=== PATIENT | female | born 1950 | race Hispanic/Latino ===

== ENCOUNTER 2018-11-22 14:16 | Inpatient (IN) | payer MEDICARE ==
[2018-11-22 14:16] VITALS: BMI 48.9
--- NOTE | 2018-11-22 15:36 | ED PDOC ---
Arrival/HPI - General Chief Complaint: Trauma Historian: Patient - History of Present Illness Narrative History of Present Illness (Text): 11/22/18 15:35 68 year old female, whose past medical history includes b/l DVT, IDDM, hypertension, arthritis of knees, DJD, and depression, complaining of bilateral knee pain, neck pain, and headache s/p slip and fall. Patient reports she has been having trouble walking for the past 2 days. Patient uses a walker to get round. She states that she was trying to get back to bed and slipped. Patient is not on any blood thinners. Patient denies any fever, chills, chest pain, shortness of breath, nausea, vomiting, diarrhea, back pain, or any other complaints. PMD: Dr. Bedolla Time/Duration: Prior to Arrival Symptom Onset: Sudden Symptom Course: Unchanged Activities at Onset: Light Context: Slipped Past Medical History - Provider Review Nursing Documentation Reviewed: Yes - Infectious Disease Hx of Infectious Diseases: None - Cardiac Hx Cardiac Disorders: Yes Hx Hypertension: Yes - Pulmonary Hx Respiratory Disorders: Yes Hx Pneumonia: Yes - Neurological Hx Neurological Disorder: Yes Hx Transient Ischemic Attacks (TIA): Yes - HEENT Hx HEENT Disorder: No - Renal Hx Renal Disorder: No - Endocrine/Metabolic Hx Endocrine Disorders: Yes Hx Diabetes Mellitus Type 2: Yes - Hematological/Oncological Hx Blood Disorders: No - Integumentary Hx Dermatological Disorder: No - Musculoskeletal/Rheumatological Hx Musculoskeletal Disorders: Yes Hx Falls: Yes - Gastrointestinal Hx Gastrointestinal Disorders: Yes Hx Colitis: Yes - Genitourinary/Gynecological Hx Genitourinary Disorders: No - Psychiatric Hx Psychophysiologic Disorder: No Hx Substance Use: No - Surgical History Hx Appendectomy: Yes Other/Comment: colectomy - Anesthesia Hx Anesthesia: No Hx Anesthesia Reactions: No Hx Malignant Hyperthermia: No Family/Social History - Physician Review Nursing Documentation Reviewed: Yes Family/Social History: No Known Family HX Smoking Status: Never Smoked Hx Alcohol Use: No Hx Substance Use: No Allergies/Home Meds Allergies/Adverse Reactions: Allergies codeine Allergy (Verified 11/22/18 14:47) RASH FISH Allergy (Verified 11/22/18 14:47) SWELLING Home Medications: Home Meds Medication Instructions Recorded Confirmed RX: No Known Home Med 11/22/18 11/22/18 Review of Systems - Physician Review All systems were reviewed & negative as marked: Yes - Review of Systems Constitutional: absent: Fevers, Other (chills) Respiratory: absent: SOB Cardiovascular: absent: Chest Pain Gastrointestinal: absent: Diarrhea, Nausea, Vomiting Musculoskeletal: Neck Pain, Other (b/l knee pain ). absent: Back Pain Neurological: Headache, Dizziness Physical Exam Vital Signs Reviewed: Yes Vital Signs Temp Pulse Resp BP Pulse Ox 11/22/18 14:47 99.3 F 99 H 17 138/66 95 Temperature: Afebrile Blood Pressure: Normal Pulse: Tachycardic Respiratory Rate: Normal Appearance: Positive for: Well-Appearing, Non-Toxic, Comfortable, Other (obese woman) Pain Distress: None Mental Status: Positive for: Alert and Oriented X 3 - Systems Exam Head: Present: Atraumatic, Normocephalic, Other (no obvious trauma to the face) Mouth: Present: Moist Mucous Membranes Neck: Present: Normal Range of Motion Respiratory/Chest: Present: Decreased Breath Sounds (due to body habits). No: Wheezes, Rales, Rhonchi Cardiovascular: Present: Tachycardic. No: Murmurs, Rub, Gallop Abdomen: Present: Other (soft). No: Tenderness, Distention Upper Extremity: Present: Normal Inspection. No: Cyanosis, Edema Lower Extremity: Present: Normal Inspection. No: Edema Neurological: Present: GCS=15, Speech Normal Psychiatric: Present: Alert, Oriented x 3, Normal Insight, Normal Concentration Medical Decision Making ED Course and Treatment: 11/22/18 15:35 Impression: 68 year old female presents complaining of bilateral knee pain, neck pain, and headache s/p slip and fall. Differential Diagnosis included but are not limited to: Plan: -- CT Cervical spine w/o contrast -- Head CT w/o contrast -- Labs -- urine Culture -- Knee Bilateral x-ray -- UA --Rocephin --IVF -- Reassess and disposition Prior Visits: Notes and results from pervious visits were reviewed. Progress Notes: 11/22/18 20:00 Labs reviewed with no outstanding findings. Signout given to Dr. Durham with patient pending urinanalysis and disposition. - Lab Interpretations I have reviewed the lab results: Yes - RAD Interpretation Size Tester: Radiologist - Scribe Statement The provider has reviewed the documentation as recorded by the Yanique Khan Provider Scribe Attestation: All medical record entries made by the Jose Angelibdamian were at my direction and personally dictated by me. I have reviewed the chart and agree that the record accurately reflects my personal performance of the history, physical exam, medical decision making, and the department course for this patient. I have also personally directed, reviewed, and agree with the discharge instructions and disposition. Disposition/Present on Arrival - Present on Arrival Any Indicators Present on Arrival: Yes History of DVT/PE: No History of Uncontrolled Diabetes: Yes Urinary Catheter: No History of Decub. Ulcer: No History Surgical Site Infection Following: None - Disposition Have Diagnosis and Disposition been Completed?: Yes Diagnosis: UTI (urinary tract infection), Fall Disposition: HOSPITALIZED Disposition Time: 19:00 Patient Problems: Current Active Problems Problem Status Onset Fall Acute UTI (urinary tract infection) Acute Condition: FAIR
[2018-11-22 16:36] LABS: BASO # 0.01 K/mm3 (0.0-2.0); BASO % 0.2 % (0.0-3.0); EOS % 0.3 % (1.5-5.0); HEMOGLOBIN 15.4 g/dL (12.0-16.0); LYMPH # 0.7 (1.2-3.4); LYMPH % 11.9 % (22.0-35.0); MEAN CORPUSCULAR HEMOGLOBIN 28.8 pg (25.0-35.0); MEAN CORPUSCULAR HGB CONC 33.9 g/dl (31.0-37.0); MEAN PLATELET VOLUME 10.4 fl (7.0-11.0); MONO # 0.7 (0.1-0.6); MONO % 10.9 % (1.0-6.0); RBC 5.34 10^6/uL (3.5-6.1); RED CELL DISTRIBUTION WIDTH 13.1 % (11.5-14.5)
[2018-11-22 16:45] LABS: ALB/GLOB RATIO 1.2 (1.1-1.8); ALBUMIN 4.1 g/dL (3.0-4.8); ALT/SGPT 27 U/L (7-56); AST/SGOT 26 U/L (14-36); BLOOD UREA NITROGEN 13 mg/dL (7-21); GFR NON-AFRICAN AMERICAN > 60
[2018-11-22 16:46] LABS: INR 1.12; PARTIAL THROMBOPLASTIN TIME 34.4 Seconds (26.9-38.3); PROTHROMBIN TIME 12.4 SECONDS (9.4-12.5)
[2018-11-22] MEDS ORDERED: cefTRIAXone 1 gm 1 GM/100 ML BAG IVPB STA (19:54)
[2018-11-22] MEDS ORDERED: Sodium Chloride 0.9% 1,000 ML IV STA ×2 (19:54→22:07)
--- NOTE | 2018-11-22 20:18 | ED PDOC ---
Physical Exam Vital Signs Temp Pulse Resp BP Pulse Ox 11/22/18 18:22 103 H 17 163/79 H 95 11/22/18 14:47 99.3 F 99 H 17 138/66 95 11/22/18 14:44 103 H 17 138/66 96 Medical Decision Making ED Course and Treatment: 11/22/18 20:00 Case endorsed to me by Dr. Buckner pending CT cervical spine, Urinalysis, reassess, and disposition. EXAM: CT Cervical Spine Without IV contrast. Electronically signed on Nov 22, 2018 8:40:11 PM EST by: Aleksandar Carr M.D. IMPRESSION: 1. No acute cervical spine abnormality. 2. Advanced degenerative arthritis is noted within the atlanto-dens interval. 11/22/18 21:30 Chest X-ray reviewed, shows no acute processes. 11/22/18 22:[address] Allan, who is aware and agrees with plan. Accepts pt in to her service. Pt admitted to [facility] for weakness and UTI. - Lab Interpretations Lab Results: PT 12.4 SECONDS (9.4-12.5) 11/22/18 16:33 INR 1.12 11/22/18 16:33 APTT 34.4 Seconds (26.9-38.3) 11/22/18 16:33 Total Bilirubin 0.8 mg/dL (0.2-1.3) 11/22/18 16:33 AST 26 U/L (14-36) 11/22/18 16:33 ALT 27 U/L (7-56) 11/22/18 16:33 Alkaline Phosphatase 109 U/L (38-126) 11/22/18 16:33 Total Protein 7.5 g/dL (5.8-8.3) 11/22/18 16:33 Albumin 4.1 g/dL (3.0-4.8) 11/22/18 16:33 Globulin 3.3 gm/dL 11/22/18 16:33 Albumin/Globulin Ratio 1.2 (1.1-1.8) 11/22/18 16:33 I have reviewed the lab results: Yes - RAD Interpretation Radiology Orders: 11/22/18 15:36 CERVICAL SPINE W/O CONTRAST [CT] Stat HEAD W/O CONTRAST [CT] Stat KNEES BILATERAL [RAD] Stat Threading Machine Tender: Radiologist - Medication Orders Current Medication Orders: Ceftriaxone Sodium (Rocephin 1 Gram Ivpb) 1 gm in 100 mls @ 100 mls/hr IVPB STAT STA; Protocol Stop: 11/22/18 20:53 Sodium Chloride (Sodium Chloride 0.9%) 1,000 mls @ 999 mls/hr IV .Q1H1M STA Stop: 11/22/18 20:54 - Scribe Statement The provider has reviewed the documentation as recorded by the Yanique Khan Provider Scribe Attestation: All medical record entries made by the Scribe were at my direction and personally dictated by me. I have reviewed the chart and agree that the record accurately reflects my personal performance of the history, physical exam, medical decision making, and the department course for this patient. I have also personally directed, reviewed, and agree with the discharge instructions and disposition. Disposition/Present on Arrival - Present on Arrival Any Indicators Present on Arrival: Yes History of DVT/PE: No History of Uncontrolled Diabetes: Yes Urinary Catheter: No History of Decub. Ulcer: No History Surgical Site Infection Following: None - Disposition Have Diagnosis and Disposition been Completed?: Yes Diagnosis: UTI (urinary tract infection), Fall Disposition: HOSPITALIZED Disposition Time: 22:05 Patient Problems: Current Active Problems Problem Status Onset Fall Acute UTI (urinary tract infection) Acute Condition: FAIR
[2018-11-22 20:22] LABS: PH,URINE 6.5 (4.7-8.0); URINE BILIRUBIN SMALL (NEGATIVE); URINE BLOOD NEGATIVE (NEGATIVE); URINE GLUCOSE (UA) 100 mg/dL (NEGATIVE); URINE LEUKOCYTE ESTERASE TRACE Leu/uL (NEGATIVE); URINE PROTEIN 100 mg/dL (<30 mg/dL)
[2018-11-22 20:23] LABS: URINE APPEARANCE SLIGHT-CLOUDY (CLEAR); URINE COLOR YELLOW (YELLOW)
[2018-11-22 20:36] LABS: URINE BACTERIA LARGE /hpf; URINE EPITHELIAL CELLS MANY /hpf (0-5)
--- NOTE | 2018-11-23 04:27 | HP ---
DATE OF EXAM: 11/22/2018 Patient was seen and examined at the bedside 11/22/2018. CHIEF COMPLAINT: Fall, headache, back pain. HISTORY OF PRESENT ILLNESS: Ms. Terry is a 68-year-old female with past medical history of bilateral DVTs, insulin-dependent diabetes mellitus, hypertension, obstructive sleep apnea syndrome, arthritis of knee, degenerative joint disease, COPD, and depression, came complaining of bilateral knee pain and neck pain, headache after slip and fall. Patient reports she had been having trouble walking for the past two days. Patient uses walker to get around. She states that she was trying to get back to bed and slipped. Patient is not on any blood thinner. Patient is very noncompliant. Actually, she was admitted couple of years ago in [facility] for abnormalities, then transferred to [facility] for deconditioning. She stayed there couple of months and then discharged home, after that patient disappeared, and as per patient she never went to see any other doctor since then. PAST MEDICAL HISTORY: As above. Hypertension, COPD, obstructive sleep apnea syndrome, morbid obesity, history of pneumonia, TIA, diabetes mellitus, history of fall, colitis, and appendectomy. FAMILY HISTORY: Father and mother, noncontributory. HABITS: Never smoked. No drug. No ethanol. ALLERGIES: PATIENT IS ALLERGIC TO CODEINE AND FISH. HOME MEDICATIONS: Unknown. I think patient is not taking any medications at home. She is very noncompliant. REVIEW OF SYSTEMS: Patient seen and examined at the bedside in the ER complaining about headache, back pain, and knee pain. No fever. No chills. No shortness of breath. No chest pain. No diarrhea, nausea, or vomiting. No neck pain. PHYSICAL EXAMINATION: VITAL SIGNS: Temperature 99.3, pulse 99, respiratory rate 17, blood pressure 138/56, pulse oximetry 95. HEENT: Head normocephalic and atraumatic. Eyes, PERRLA. Extraocular muscles intact. Conjunctivae clear. Nose patent. Mucous membrane moist. NECK: Supple. No carotid bruit or thyromegaly. CHEST: Bilaterally symmetrical. HEART: S1 and S2 positive. LUNGS: Clear to auscultation. ABDOMEN: Soft. Bowel sounds present. No organomegaly. EXTREMITIES: No edema. No cyanosis. NEUROLOGIC: Patient awake, alert, moving all four extremities. No focal deficit. LABORATORY DATA: White blood cell is 6, hemoglobin 15.4, hematocrit 45.4, platelets 205, sodium 137, potassium 3.1, chloride 95, BUN 30, creatinine 0.7, glucose 257. ASSESSMENT AND PLAN: Ms. Mara Samayoa is 68 years old lady with hypokalemia, hypochloremia, diabetes mellitus, proteinuria, glucosuria, ketonuria, urinary tract infection, comorbid obesity. Cervical spine CT, head CT, knee x-rays, and chest x-ray done; all results are pending. Patient has history of bilateral deep venous thromboses, insulin-dependent diabetes mellitus, hypertension, arthritis, degenerative joint disease, depression, now came in with bilateral knee pain with headache, fall after slip. Patient has history of rhabdomyolysis. According to radiologist, there is no acute cervical spine abnormality, advanced degenerative arthritis is noted within the atlanto-dens cervical region. Case discussed with Dr. Lei, emergency room physician. Discussion done with Dr. Antelmo Durham also. Admitted the patient. Antibiotics started, repeat labs. We will follow up. Lelo Allan MD
[2018-11-23] MEDS ORDERED: Potassium Chloride 20 mEq ER Tab PO ONE (04:55)
[2018-11-23 07:21] LABS: IRON 26 ug/dL (45-180)
[2018-11-23 07:30] LABS: % IRON SATURATION 9 % (20-55); TOTAL IRON BINDING CAPACITY 289 ug/dL (265-497)
--- NOTE | 2018-11-23 08:23 | CT ---
Date of service: 11/22/2018 PROCEDURE: CT HEAD WITHOUT CONTRAST. HISTORY: fall COMPARISON: None available. TECHNIQUE: Axial computed tomography images were obtained through the head/brain without intravenous contrast. Radiation dose: Total exam DLP = 1152.16 mGy-cm. This CT exam was performed using one or more of the following dose reduction techniques: Automated exposure control, adjustment of the mA and/or kV according to patient size, and/or use of iterative reconstruction technique. FINDINGS: HEMORRHAGE: No intracranial hemorrhage. BRAIN: No mass effect or edema. No atrophy or chronic microvascular ischemic changes. VENTRICLES: Unremarkable. No hydrocephalus. CALVARIUM: Unremarkable. PARANASAL SINUSES: Unremarkable as visualized. No significant inflammatory changes. MASTOID AIR CELLS: Unremarkable as visualized. No inflammatory changes. OTHER FINDINGS: None. IMPRESSION: Normal CT of the Head.
--- NOTE | 2018-11-23 09:26 | CT ---
Date of service: 11/22/2018 PROCEDURE: CT Cervical Spine without contrast HISTORY: fall COMPARISON: None available. TECHNIQUE: Axial computed tomography images were obtained of the cervical spine without the use of intravenous contrast. Coronal and sagittal reformatted images were created and reviewed. Radiation dose: Total exam DLP = 652.95 mGy-cm. This CT exam was performed using one or more of the following dose reduction techniques: Automated exposure control, adjustment of the mA and/or kV according to patient size, and/or use of iterative reconstruction technique. FINDINGS: VERTEBRAE: No fracture. Normal alignment. No destructive bony lesion. DISCS/SPINAL CANAL/NEURAL FORAMINA: Mild degenerative changes. PARASPINAL SOFT TISSUES: Unremarkable. OTHER FINDINGS: None. IMPRESSION: No acute fracture.
--- NOTE | 2018-11-23 10:00 | CP.PCM.APN ---
Subjective - Date & Time of Evaluation Date of Evaluation: 11/23/18 Time of Evaluation: 09:00 - Subjective Subjective: Pt seen and examined at bedside. C/O mild cough but nonproductive w/ mild shortness of breath. Objective - Vital Signs/Intake and Output Vital Signs (last 24 hours): Temp Pulse Resp BP Pulse Ox 98 F 92 H 18 141/96 H 95 11/23/18 06:00 11/23/18 06:00 11/23/18 06:00 11/23/18 06:00 11/23/18 06:00 Intake and Output: 11/23/18 11/23/18 06:59 18:59 Output Total 100 Balance -100 - Medications Medications: Current Medications Acetaminophen (Tylenol 325mg Tab) 650 mg PO Q4H PRN PRN Reason: Pain, Mild (1-3) Last Admin: 11/22/18 23:55 Dose: 650 mg Aspirin (Ecotrin) 81 mg PO DAILY ANAID Famotidine (Pepcid) 40 mg PO HS ANAID Ceftriaxone Sodium (Rocephin 1 Gram Ivpb) 1 gm in 100 mls @ 100 mls/hr IVPB DAILY ANAID; Protocol - Labs Labs: 11/22/18 16:33 11/22/18 16:33 PT 12.4 SECONDS (9.4-12.5) 11/22/18 16:33 INR 1.12 11/22/18 16:33 APTT 34.4 Seconds (26.9-38.3) 11/22/18 16:33 - Constitutional Appears: No Acute Distress - Head Exam Head Exam: NORMOCEPHALIC - Eye Exam Eye Exam: Normal appearance - Respiratory Exam Respiratory Exam: Wheezes - Cardiovascular Exam Cardiovascular Exam: REGULAR RHYTHM, +S1, +S2 - GI/Abdominal Exam GI & Abdominal Exam: Soft, Normal Bowel Sounds - Rectal Exam Rectal Exam: Deferred - Extremities Exam Extremities Exam: Normal Inspection - Neurological Exam Neurological Exam: Alert, Awake, Oriented x3 Assessment and Plan - Assessment and Plan (Free Text) Assessment: Pt is a 68 y.o. female with pmhx of rdorick dvt, DM, HTN, arthritis of knees, DJD and depression who presented in ED with bilateral knee pain, neck pain and headache s/p fall. ITS Impressions Cervical Spine CT 11/22/18 15:36 IMPRESSION: No acute fracture. Head CT 11/22/18 15:36 IMPRESSION: Normal CT of the Head. Plan: UA (+) - on Rocephin; pending urine cx ID and Pulm on consult Physical therapy pending Meds per MAR Will continue to follow
[2018-11-23] MEDS ORDERED: Albuterol-Ipratrop 3 mg / 0.5 (3 ml) UD IH PRN (10:02)
--- NOTE | 2018-11-23 10:15 | RAD ---
Date of service: 11/22/2018 HISTORY: cough COMPARISON: 12/09/2016 FINDINGS: LUNGS: No active pulmonary disease. PLEURA: No significant pleural effusion identified, no pneumothorax apparent. CARDIOVASCULAR: No aortic atherosclerotic calcification present. Mild cardiomegaly. No pulmonary vascular congestion. OSSEOUS STRUCTURES: No significant abnormalities. VISUALIZED UPPER ABDOMEN: Normal. OTHER FINDINGS: None. IMPRESSION: No active disease.
[2018-11-23] MEDS: cefTRIAXone 1 gm 1 GM/100 ML BAG IVPB SCH (10:25)
--- NOTE | 2018-11-23 10:51 | RAD ---
Date of service: 11/22/2018 PROCEDURE: Bilateral knees HISTORY: fall w/ pain COMPARISON: TECHNIQUE: Two views of each knee FINDINGS: There is joint space narrowing in the medial compartment and patellofemoral joints of both knees. Osteophytes are seen. There is no acute fracture and no evidence of joint effusion. IMPRESSION: Osteoarthritis
--- NOTE | 2018-11-23 11:13 | CARD ---
APPROVED REPORT Date of service: 11/22/2018 EKG Measurement Heart [id number] <Conclusion> Sinus tachycardia Right bundle branch block Inferior infarct, age Old? Abnormal ECG
[2018-11-23] MEDS: Albuterol-Ipratrop 3 mg / 0.5 (3 ml) UD IH SCH ×2 (13:08→19:22)
[2018-11-23 13:36] LABS: FOLATE 6.9 ng/mL
--- NOTE | 2018-11-23 13:40 | CP.PCM.CON ---
History of Present Illness - History of Present Illness History of Present Illness: Infectious Disease Consultation: November 23, 2018 68 yo female with extensive past medical history of IDDM, MICHAELLE, HTN, bilateral DVTs, COPD DJD, and neck pain presented with slip and fall with complaints of b ilateral knee pain, neck pain, and headaches. Currently no fevers or leukocytosis. Urinalysis with signs of a potential UTI. Patient with known non-compliance with mediations as per PMD. Patient has not seen a doctor in several years. Lethargic and difficult to wake. PMHx: IDDM, MICHAELLE, HTN, Bilateral DVTs, COPD, DJD, neck pain, Obesity, TIA, Fall history. PSHx: Appendectomy Allergies: FISH, CODEINE Social Hx: Denies tobacco, EtOH, or illicit drug use Medications: Active Medications Acetaminophen (Tylenol 325mg Tab) 650 mg PO Q4H PRN PRN Reason: Pain, Mild (1-3) Last Admin: 11/22/18 23:55 Dose: 650 mg Acetaminophen (Tylenol 325mg Tab) 650 mg PO Q6H PRN PRN Reason: Fever >100.4 F Last Admin: 11/23/18 15:26 Dose: 650 mg Albuterol/Ipratropium (Duoneb 3 Mg/0.5 Mg (3 Ml) Ud) 3 ml IH Q2H PRN PRN Reason: Shortness of Breath Albuterol/Ipratropium (Duoneb 3 Mg/0.5 Mg (3 Ml) Ud) 3 ml IH [id number] ANAID Last Admin: 11/23/18 13:08 Dose: 3 ml Aspirin (Ecotrin) 81 mg PO DAILY [facility] Last Admin: 11/23/18 10:25 Dose: 81 mg Enoxaparin Sodium (Lovenox) 40 mg SC DAILY [facility]; Protocol Famotidine (Pepcid) 40 mg PO HS [facility] Fluticasone Propionate (Flonase) 1 actuation NS HS [facility] Ceftriaxone Sodium (Rocephin 1 Gram Ivpb) 1 gm in 100 mls @ 100 mls/hr IVPB DAILY [facility]; Protocol Last Admin: 11/23/18 10:25 Dose: 100 mls/hr Family Hx: none given ROS: No fevers, chills, nausea, vomiting, diarrhea, melena, hematuria, hematemesis, hematochezia, depression, anxiety, vision loss, hearing loss, loss of consciousness. Patient complains of bilateral knee pain, neck pain, and headaches Past Patient History - Infectious Disease Hx of Infectious Diseases: None - Past Social History Smoking Status: Never Smoked - CARDIAC Hx Hypertension: Yes - PULMONARY Hx Respiratory Disorders: Yes Hx Pneumonia: Yes - NEUROLOGICAL Hx Neurological Disorder: Yes Hx Transient Ischemic Attacks (TIA): Yes - HEENT Hx HEENT Problems: No - RENAL Hx Chronic Kidney Disease: No - ENDOCRINE/METABOLIC Hx Endocrine Disorders: Yes Hx Diabetes Mellitus Type 2: Yes - HEMATOLOGICAL/ONCOLOGICAL Hx Blood Disorders: No - INTEGUMENTARY Hx Dermatological Problems: No - MUSCULOSKELETAL/RHEUMATOLOGICAL Hx Falls: Yes - GASTROINTESTINAL Hx Gastrointestinal Disorders: Yes Hx Colitis: Yes - GENITOURINARY/GYNECOLOGICAL Hx Genitourinary Disorders: No - PSYCHIATRIC Hx Psychophysiologic Disorder: No Hx Substance Use: No - SURGICAL HISTORY Hx Appendectomy: Yes Other/Comment: colectomy - ANESTHESIA Hx Anesthesia: No Hx Anesthesia Reactions: No Hx Malignant Hyperthermia: No Meds Allergies/Adverse Reactions: Allergies Allergy/AdvReac Type Severity Reaction Status Date / Time codeine Allergy RASH Verified 11/22/18 14:47 FISH Allergy SWELLING Verified 11/22/18 14:47 - Medications Medications: Current Medications Acetaminophen (Tylenol 325mg Tab) 650 mg PO Q4H PRN PRN Reason: Pain, Mild (1-3) Last Admin: 11/22/18 23:55 Dose: 650 mg Albuterol/Ipratropium (Duoneb 3 Mg/0.5 Mg (3 Ml) Ud) 3 ml IH Q2H PRN PRN Reason: Shortness of Breath Albuterol/Ipratropium (Duoneb 3 Mg/0.5 Mg (3 Ml) Ud) 3 ml IH [id number] [facility]NAID Last Admin: 11/23/18 13:08 Dose: 3 ml Aspirin (Ecotrin) 81 mg PO DAILY [facility] Last Admin: 11/23/18 10:25 Dose: 81 mg Famotidine (Pepcid) 40 mg PO HS [facility] Ceftriaxone Sodium (Rocephin 1 Gram Ivpb) 1 gm in 100 mls @ 100 mls/hr IVPB DAILY [facility]; Protocol Last Admin: 11/23/18 10:25 Dose: 100 mls/hr Physical Exam - Constitutional Appears: Non-toxic, No Acute Distress, Chronically Ill Additional comments: Morbidly Obese - Head Exam Head Exam: ATRAUMATIC, NORMOCEPHALIC - Eye Exam Eye Exam: EOMI, PERRL Pupil Exam: NORMAL ACCOMODATION, PERRL - ENT Exam ENT Exam: Mucous Membranes Moist, Normal External Ear Exam, TM's Normal Bilaterally - Neck Exam Neck exam: Positive for: Full Rom, Normal Inspection - Respiratory Exam Respiratory Exam: Clear to Auscultation Bilateral, NORMAL BREATHING PATTERN. absent: Rales, Rhonchi, Wheezes - Cardiovascular Exam Cardiovascular Exam: REGULAR RHYTHM, RRR, +S1, +S2 - GI/Abdominal Exam GI & Abdominal Exam: Normal Bowel Sounds, Soft. absent: Distended, Tenderness - Extremities Exam Extremities exam: Positive for: full ROM, normal inspection - Neurological Exam Neurological exam: Alert, CN II-XII Intact, Oriented x3 - Psychiatric Exam Psychiatric exam: Normal Affect, Normal Mood - Skin Skin Exam: Intact, Normal Color Additional comments: Thick crusting between the toes. Results - Vital Signs Recent Vital Signs: Last Vital Signs Temp 98 F 11/23/18 06:00 Pulse 92 H 11/23/18 13:12 Resp 18 11/23/18 06:00 BP 141/96 H 11/23/18 06:00 Pulse Ox 95 11/23/18 06:00 - Labs Result Diagrams: 11/22/18 16:33 11/22/18 16:33 Labs: Laboratory Results - last 24 hr 11/22/18 11/22/18 11/22/18 16:33 16:33 16:33 WBC 6.0 RBC 5.34 Hgb 15.4 Hct 45.4 MCV 85.0 MCH 28.8 MCHC 33.9 RDW 13.1 Plt Count 205 MPV 10.4 Neut % (Auto) 76.7 H Lymph % (Auto) 11.9 L Gilliam % (Auto) 10.9 H Eos % (Auto) 0.3 L Baso % (Auto) 0.2 Lymph # (Auto) 0.7 L Gilliam # (Auto) 0.7 H Eos # (Auto) 0.0 Baso # (Auto) 0.01 Absolute Neuts (auto) 4.56 PT 12.4 INR 1.12 APTT 34.4 Sodium 137 Potassium 3.1 L Chloride 95 L Carbon Dioxide 32 Anion Gap 13 BUN 13 Creatinine 0.7 Est GFR ( Amer) > 60 Est GFR (Non-Af Amer) > 60 Random Glucose 257 H Hemoglobin A1c Calcium 9.0 Iron TIBC % Saturation Total Bilirubin 0.8 AST 26 ALT 27 Alkaline Phosphatase 109 Total Creatine Kinase 61 Total Protein 7.5 Albumin 4.1 Globulin 3.3 Albumin/Globulin Ratio 1.2 Triglycerides Cholesterol LDL Cholesterol Direct HDL Cholesterol Vitamin B12 Folate Urine Color Urine Appearance Urine pH Ur Specific Boyd Urine Protein Urine Glucose (UA) Urine Ketones Urine Blood Urine Nitrate Urine Bilirubin Urine Urobilinogen Ur Leukocyte Esterase Urine RBC Urine WBC Ur Epithelial Cells Urine Bacteria Influenza Typ A,B (EIA) 11/22/18 11/23/18 11/23/18 19:58 00:50 06:15 WBC RBC Hgb Hct MCV MCH MCHC RDW Plt Count MPV Neut % (Auto) Lymph % (Auto) Gilliam % (Auto) Eos % (Auto) Baso % (Auto) Lymph # (Auto) Gilliam # (Auto) Eos # (Auto) Baso # (Auto) Absolute Neuts (auto) PT INR APTT Sodium Potassium Chloride Carbon Dioxide Anion Gap BUN Creatinine Est GFR ( Amer) Est GFR (Non-Af Amer) Random Glucose Hemoglobin A1c Calcium Iron TIBC % Saturation Total Bilirubin AST ALT Alkaline Phosphatase Total Creatine Kinase Total Protein Albumin Globulin Albumin/Globulin Ratio Triglycerides 72 Cholesterol 149 LDL Cholesterol Direct 90 HDL Cholesterol 39 Vitamin B12 212 L Folate 6.9 Urine Color Yellow Urine Appearance Slight-cloudy Urine pH 6.5 Ur Specific Boyd >= 1.030 Urine Protein 100 H Urine Glucose (UA) 100 H Urine Ketones 15 H Urine Blood Negative Urine Nitrate Positive H Urine Bilirubin Small H Urine Urobilinogen 1.0 H Ur Leukocyte Esterase Trace H Urine RBC None Urine WBC 2 - 5 Ur Epithelial Cells Many H Urine Bacteria Large Influenza Typ A,B (EIA) Negative for flu a/b 11/23/18 11/23/18 06:15 06:15 WBC RBC Hgb Hct MCV MCH MCHC RDW Plt Count MPV Neut % (Auto) Lymph % (Auto) Gilliam % (Auto) Eos % (Auto) Baso % (Auto) Lymph # (Auto) Gilliam # (Auto) Eos # (Auto) Baso # (Auto) Absolute Neuts (auto) PT INR APTT Sodium Potassium Chloride Carbon Dioxide Anion Gap BUN Creatinine Est GFR ( Amer) Est GFR (Non-Af Amer) Random Glucose Hemoglobin A1c 9.0 H Calcium Iron 26 L TIBC 289 % Saturation 9 L Total Bilirubin AST ALT Alkaline Phosphatase Total Creatine Kinase Total Protein Albumin Globulin Albumin/Globulin Ratio Triglycerides Cholesterol LDL Cholesterol Direct HDL Cholesterol Vitamin B12 Folate Urine Color Urine Appearance Urine pH Ur Specific Boyd Urine Protein Urine Glucose (UA) Urine Ketones Urine Blood Urine Nitrate Urine Bilirubin Urine Urobilinogen Ur Leukocyte Esterase Urine RBC Urine WBC Ur Epithelial Cells Urine Bacteria Influenza Typ A,B (EIA) Assessment & Plan - Assessment and Plan (Free Text) Assessment: 68 yo Cauc female who does not follow with doctors and is not compliant with her medications presented with a fall and has been lethargic while in the hospital. Fevers up to 102.3 this afternoon. The patient's urinalysis with signs of UTI. On Rocephin for antibiotic treatment. Supportive care. Awaiting urine cultures. Urine appears to have been sent before Rocephin was given. Blood cultures taken after Rocephin was given. Will give a single dose of Gentamicin to the patient. Chest X-ray negative. Obtain ESR and Procalcitonin. ESR was 33. Procalcitonin was 0.07. Severe Sepsis unlikely with low procalcitonin value. Most likely diagnosis is UTI. Supportive care. Thank you for allowing me to participate in the care of the patient, we will follow with you.
--- NOTE | 2018-11-23 15:47 | CON ---
DATE: 11/23/2018 PULMONARY CONSULT NOTE REFERRING PHYSICIAN: Lelo Allan MD REASON FOR CONSULT: Shortness of breath, COPD, and sleep apnea syndrome. HISTORY OF PRESENT ILLNESS: This is a 68-year-old female with past medical history significant for bilateral DVTs, diabetes mellitus, hypertension, obstructive sleep apnea syndrome, arthritis of the knee, and COPD. The patient came to emergency room complaining of bilateral knee pain, neck pain, and a headache after having a slip and fall. The patient reports that she was having trouble walking for about the past two days; typically uses a walker at home to ambulate. The patient reports she was trying to get back to bed when she slipped and fell. The patient does report that she does snore. She wakes up in the middle of the night choking or gasping for air. The patient reports having a postnasal drip, occasional coughing, and some shortness of breath. PAST MEDICAL HISTORY: Hypertension, COPD, obstructive sleep apnea syndrome, morbid obesity, history of pneumonia, TIA, diabetes mellitus, history of fall, colitis, appendectomy, bilateral DVTs, arthritis of the knee, degenerative joint disease, and depression. FAMILY HISTORY: No cardiopulmonary disease reported. SOCIAL HISTORY: Never smoked. No EtOH abuse. No illicit drug use. ALLERGIES: CODEINE AND FISH. MEDICATIONS: Reviewed. Tylenol 650 mg every 4 hours p.r.n. for mild pain, DuoNeb 3 mL inhalation every 2 hours p.r.n., DuoNeb 3 mL inhalation every 6 hours, aspirin 81 mg daily, Rocephin 1 g daily, Pepcid 40 mg at bedtime. REVIEW OF SYSTEMS: No headache, chest pain, abdominal pain, nausea, vomiting, diarrhea, leg pain, or leg swelling reported. The patient reports occasional cough; does report having postnasal drip, rhinitis, and shortness of breath with exertion. PHYSICAL EXAMINATION: GENERAL: No acute distress. VITAL SIGNS: Blood pressure 141/96, pulse 92, temperature 98, and oxygen saturation 95% on room air. HEENT: Moist mucous membranes. Mallampati score or 4. Crowded airway. NECK: Supple. No JVD. Short and thick. RESPIRATORY: Few rhonchi bilaterally. CARDIOPULMONARY: S1 and S2 audible. ABDOMEN: Soft and nontender. No distention. No organomegaly. EXTREMITIES: No bilateral lower extremity edema. NEUROLOGIC: Awake, alert, and verbal. Follows commands. LABORATORY DATA: Reviewed. WBC 6.0, RBC 5.34, hemoglobin 15.4, hematocrit 45.4, and platelets 205. PT 12.4, INR 1.12, ABG pH 34.4. Sodium 137, potassium 3.1, chloride 95, carbon dioxide 32, anion gap 13, BUN 13, creatinine 0.7, GFR greater than 60, random glucose 257, hemoglobin A1c 9, calcium 9, iron 26, TIBC 289, percent saturation 9, total bilirubin 0.8, AST 26, ALT 27, alkaline phosphatase 109, total creatine kinase 61, total protein 7.5, albumin 4.1, globulin 3.3, albumin-globulin ratio 1.2, triglycerides 72, cholesterol is 149, LDL 90, HDL 39, vitamin B12 of 212, folate 6.9, and influenza type A/B negative. Urinalysis; urine protein 100, urine glucose 100, urine ketones 15, urine nitrate positive, urine bilirubin small urine, urobilinogen 1, urine leukocyte esterase trace, and urine epithelial cells many. Electrocardiogram shows sinus tachycardia, inferior infarct age old, right bundle branch block. Cervical CT spine; no acute fracture. Head CT; normal CT of the head. Knee x-ray; osteoarthritis. Chest x-ray; no active disease. IMPRESSION AND PLAN: The patient is status post fall, chronic obstructive pulmonary disease, obstructive sleep apnea syndrome, history of bilateral deep venous thrombosis, diabetes mellitus, hypertension, osteoarthritis of the knee, depression; positive urinalysis, currently on antibiotics. Urine culture pending. Continue inhaled bronchodilators. We will place the patient on Lovenox for deep venous thrombosis prophylaxis. Continue gastric prophylaxis. Continue antibiotics per Infectious Disease. Discussed with the patient in depth. Bilevel positive airway pressure use at bedtime; the patient agreed to use bilevel positive airway pressure while in the hospital. We will start the patient on bilevel positive airway pressure 07/25. The patient will need sleep study and full pulmonary function test as outpatient. The patient is seen and examined with Dr. Nuñez. Discussed assessment and plan as described above. Seen and examined with Heather Cisneros APN. Discussed assessment and plan as described above. Thank you for this consult. We will follow with you. Blayne Romero APN Evangelist Nuñez MD [facility] # [id number] [facility]ENTERHola
[2018-11-23] MEDS: Fluticasone Nasal 50 mcg/Spray NS SCH (22:43)
[2018-11-24] MEDS: Albuterol-Ipratrop 3 mg / 0.5 (3 ml) UD IH SCH ×4 (03:56→19:23)
--- NOTE | 2018-11-24 05:05 | PN ---
DATE: 11/23/2018 SUBJECTIVE: The patient is a 68-year-old female. The patient was seen and examined at the bedside on 11/23/2018, looking comfortable. No fever. No chills. No hematuria. No hematochezia. No headache. No dizziness. No chest pain. No palpitations. Complaining of pain in the knee and back. PHYSICAL EXAMINATION: VITAL SIGNS: Blood pressure 140/90, pulse 92, temperature 98, oxygen saturation 94% on room air. HEENT: Head: Normocephalic, atraumatic. Eyes: PERRLA. Extraocular muscles are intact. Conjunctivae clear. Nose patent. NECK: Supple. No carotid bruit. No JVD or thyromegaly. CHEST: Bilaterally symmetrical. HEART: S1 and S2 positive. LUNGS: Few rhonchi bilaterally. ABDOMEN: Soft. Bowel sounds present. No organomegaly. EXTREMITIES: No edema. No cyanosis. NEUROLOGIC: The patient is awake and alert. Follows simple commands. LABORATORY DATA: White blood cells 6, hemoglobin 15.4, hematocrit 45.4, platelets 205. Sodium 137, potassium 3.4, BUN 13, creatinine 0.7. ASSESSMENT AND PLAN: Mrs. Mara Walker is a 68-year-old lady with history of hypertension, chronic obstructive pulmonary disease, obstructive sleep apnea syndrome, morbid obesity, history of pneumonia, transient ischemic attack, diabetes mellitus, history of medical falls, colitis, appendectomy, bilateral deep venous thrombosis, arthritis of the knee, degenerative joint disease, and depression. Lives alone by herself, very noncompliant with doctor's office visits and medications. Osteoarthritis of the knee, positive urinalysis. Continue on antibiotics. Continue bronchodilators. Urine culture is pending. Mrs. Hernandez put the patient on Lovenox. Continue gastric prophylaxis, BiPAP, seen by Dr. Sifuentes, Infectious Disease. Reviewed Marty Mary's notes. He does have bilateral deep venous thrombosis, should be on Coumadin but is noncompliant. Degenerative joint disease, neck pain, headache as before, no acute findings. CT of the head showed no acute findings. Gastrointestinal and deep venous thrombosis prophylaxis given. Repeat labs. We will follow up. Lelo Jerrell, MD
[2018-11-24 07:21] LABS: MEAN CELL VOLUME 86.7 fl (80.0-105.0); MEAN CORPUSCULAR HEMOGLOBIN 28.6 pg (25.0-35.0); MEAN PLATELET VOLUME 10.5 fl (7.0-11.0); RBC 4.89 10^6/uL (3.5-6.1); RED CELL DISTRIBUTION WIDTH 13.7 % (11.5-14.5); WHITE BLOOD COUNT 6.1 10^3/uL (4.5-11.0)
[2018-11-24 08:14] LABS: BLOOD UREA NITROGEN 18 mg/dL (7-21); CALCIUM 8.7 mg/dL (8.4-10.5); GFR NON-AFRICAN AMERICAN > 60
[2018-11-24] MEDS: Enoxaparin 40 mg Syringe SC SCH (09:50)
[2018-11-24] MEDS: cefTRIAXone 1 gm 1 GM/100 ML BAG IVPB SCH (09:50)
--- NOTE | 2018-11-24 12:33 | PN ---
DATE: 11/24/2018 PULMONARY PROGRESS NOTE REFERRING PHYSICIAN: Lelo Allan MD SUBJECTIVE: The patient is lying in the bed. No acute distress. No overnight events reported. The patient reports wearing BiPAP machine last night. States she like she got good night sleep last night while using BiPAP. No headache, rhinitis, chest pain, abdominal pain, nausea, vomiting, diarrhea, leg pain, or leg swelling reported. The patient reports occasional cough and shortness of breath with exertion, but feels better today. OBJECTIVE: GENERAL: No acute distress. VITAL SIGNS: Blood pressure 167/92, pulse 89, temperature 99 and oxygen saturation 97%. HEENT: Moist mucous membrane. Crowded airway. Mallampati score is 4. NECK: Supple. No JVD. Short and thick. RESPIRATORY: Scattered rhonchi bilaterally. CARDIOVASCULAR: S1 and S2, audible. ABDOMEN: Soft and nontender. No distention. No organomegaly. EXTREMITIES: No bilateral lower extremity edema. NEUROLOGIC: Awake, alert and verbal. Follows commands. MEDICATIONS: Reviewed. Tylenol 650 mg every 4 hours p.r.n. for mild pain, Tylenol 650 mg every 4 hours p.r.n. fever greater than 100.4, DuoNeb 3 mL inhalation every 2 hours p.r.n., DuoNeb 3 mL inhalation every 6 hours, aspirin 81 mg daily, Rocephin 1 g daily, Lovenox 40 mg subcutaneous daily, Pepcid 40 mg at bedtime, Flonase 1 spray each nostril at bedtime and hydralazine 25 mg four times a day. LABORATORY DATA: Reviewed. WBC 6.1, RBC 4.89, hemoglobin 14, hematocrit 42.4 and platelets 211. Sodium 137, potassium 3.6, chloride 100, carbon dioxide 29, anion gap 11, BUN 18, creatinine 0.7, GFR greater than 60, random glucose 261, calcium 8.7, procalcitonin 0.07 and TSH 0.76. Blood culture preliminary no growth after 24 hours. IMPRESSION AND PLAN: History of falls, hypertension, chronic obstructive pulmonary disease, obstructive sleep apnea syndrome, morbid obesity, history of pneumonia, transient ischemic attack, diabetes mellitus, colitis, bilateral deep venous thrombosis, arthritis of the knee, degenerative joint disease and depression. Continue inhaled bronchodilators. Urine culture pending. Continue gastric prophylaxis. Continue bilevel positive airway pressure use at bedtime, sleep apnea precaution. Continue consult with Infectious Disease. We will continue antibiotics per Infectious Disease. Sleep apnea precaution. Head of bed elevated at 45 degrees. The patient will need sleep study and full pulmonary function test as outpatient. We will recommend physical therapy, out of bed to chair. The patient is seen and examined with Dr. Nuñez. Discussed assessment and plan as described above. Seen and examined with Heather Cisneros, nurse practitioner. Discussed assessment and plan as described above. Thank you for this consult. We will follow with you. Blayne Romero APN Evangelist Nuñez MD
--- NOTE | 2018-11-24 15:41 | CP.PCM.PN ---
Subjective - Date & Time of Evaluation Date of Evaluation: 11/24/18 Time of Evaluation: 15:00 - Subjective Subjective: Infectious Disease Follow Up: November 24, 2018 68 yo female with extensive past medical history of IDDM, MICHAELLE, HTN, bilateral DVTs, COPD DJD, and neck pain presented with slip and fall with complaints of bilateral knee pain, neck pain, and headaches. Currently no fevers or leukocytosis. Urinalysis with signs of a potential UTI. Patient with known non-compliance with mediations as per PMD. Patient has not seen a doctor in several years. Lethargic and difficult to wake last night. More awake and alert. Blood cultures negative at 24 hours. Urine cultures still pending. On Rocephin and received a single dose of Gentamicin. No further fevers since last night but monitoring. No leukocytosis. Low procalcitonin which significantly reduces chances that this is sepsis. Objective - Vital Signs/Intake and Output Vital Signs (last 24 hours): Temp Pulse Resp BP Pulse Ox 99 F 89 16 167/92 H 97 11/24/18 06:00 11/24/18 06:00 11/24/18 06:00 11/24/18 06:00 11/24/18 06:00 Intake and Output: 11/24/18 11/24/18 06:59 18:59 Intake Total 620 Output Total 300 Balance 320 - Medications Medications: Current Medications Acetaminophen (Tylenol 325mg Tab) 650 mg PO Q4H PRN PRN Reason: Pain, Mild (1-3) Last Admin: 11/22/18 23:55 Dose: 650 mg Acetaminophen (Tylenol 325mg Tab) 650 mg PO Q6H PRN PRN Reason: Fever >100.4 F Last Admin: 11/23/18 15:26 Dose: 650 mg Albuterol/Ipratropium (Duoneb 3 Mg/0.5 Mg (3 Ml) Ud) 3 ml IH Q2H PRN PRN Reason: Shortness of Breath Albuterol/Ipratropium (Duoneb 3 Mg/0.5 Mg (3 Ml) Ud) 3 ml IH [id number] [facility] Last Admin: 11/24/18 13:13 Dose: 3 ml Aspirin (Ecotrin) 81 mg PO DAILY [facility] Last Admin: 11/24/18 09:50 Dose: 81 mg Enoxaparin Sodium (Lovenox) 40 mg SC DAILY [facility]; Protocol Last Admin: 11/24/18 09:50 Dose: 40 mg Famotidine (Pepcid) 40 mg PO HS [facility] Last Admin: 11/23/18 22:42 Dose: 40 mg Fluticasone Propionate (Flonase) 1 actuation NS HS [facility] Last Admin: 11/23/18 22:43 Dose: 1 spray Hydralazine HCl (Apresoline) 25 mg PO QID [facility] Ceftriaxone Sodium (Rocephin 1 Gram Ivpb) 1 gm in 100 mls @ 100 mls/hr IVPB DAILY [facility]; Protocol Last Admin: 11/24/18 09:50 Dose: 100 mls/hr - Labs Labs: 11/24/18 06:45 11/24/18 06:45 PT 12.4 SECONDS (9.4-12.5) 11/22/18 16:33 INR 1.12 11/22/18 16:33 APTT 34.4 Seconds (26.9-38.3) 11/22/18 16:33 - Constitutional Appears: Non-toxic, No Acute Distress, Chronically Ill - Head Exam Head Exam: ATRAUMATIC, NORMOCEPHALIC - Eye Exam Eye Exam: EOMI, PERRL Pupil Exam: NORMAL ACCOMODATION, PERRL - ENT Exam ENT Exam: Mucous Membranes Moist, Normal External Ear Exam, TM's Normal Bilaterally - Neck Exam Neck Exam: Full ROM, Normal Inspection - Respiratory Exam Respiratory Exam: Clear to Ausculation Bilateral, NORMAL BREATHING PATTERN. absent: Decreased Breath Sounds, Rhonchi, Wheezes - Cardiovascular Exam Cardiovascular Exam: REGULAR RHYTHM, RRR, +S1, +S2 - GI/Abdominal Exam GI & Abdominal Exam: Soft, Normal Bowel Sounds. absent: Distended, Tenderness - Extremities Exam Extremities Exam: Full ROM, Normal Inspection - Neurological Exam Neurological Exam: Alert, Awake, CN II-XII Intact, Oriented x3 - Psychiatric Exam Psychiatric exam: Normal Affect, Normal Mood - Skin Skin Exam: Intact, Normal Color Additional comments: Thick crusting between the toes of both feet. Assessment and Plan - Assessment and Plan (Free Text) Assessment: 68 yo Cauc female who does not follow with doctors and is not compliant with her medications presented with a fall and has been lethargic while in the hospital. Fevers up to 102.3 this afternoon. The patient's urinalysis with signs of UTI. On Rocephin for antibiotic treatment. Supportive care. Awaiting urine cultures. Urine appears to have been sent before Rocephin was given. Blood cultures taken after Rocephin was given. Given a single dose of Gentamicin to the patient yesterday. Chest X-ray negative. Obtain ESR and Procalcitonin. ESR was 33. Procalcitonin was 0.07. Severe Sepsis unlikely with low procalcitonin value. Most likely diagnosis is UTI. Awaiting urine cultures. The patient's blood cultures are negative at 24 hours. Supportive care. Thank you for allowing me to participate in the care of the patient, we will follow with you.
[2018-11-24] MEDS: Fluticasone Nasal 50 mcg/Spray NS SCH (22:09)
[2018-11-25] MEDS: Albuterol-Ipratrop 3 mg / 0.5 (3 ml) UD IH SCH ×4 (01:04→20:02)
--- NOTE | 2018-11-25 03:47 | PN ---
DATE: 11/24/2018 SUBJECTIVE: The patient is a 68-year-old female. The patient was seen and examined at the bedside on 11/24/2018. Looking comfortable. Feeling fatigued and tired, coughing with shortness of breath. No fever. No chills. No hematuria. No hematochezia. PHYSICAL EXAMINATION: VITAL SIGNS: Blood pressure 160/90, pulse 80, temperature 98.6, and oxygen saturation 97. HEENT: Head: Normocephalic and atraumatic. Eyes: PERRLA. Extraocular muscles intact. Conjunctivae clear. Nose patent. Mucous membranes moist. NECK: Supple. No carotid bruit. No JVD or thyromegaly. CHEST: Bilaterally symmetrical. HEART: S1 and S2 positive. LUNGS: Clear to auscultation. ABDOMEN: Soft. Bowel sounds present. No organomegaly. EXTREMITIES: No edema. No cyanosis. NEUROLOGIC: The patient is awake and alert. Follows simple commands. MEDICATIONS: Tylenol, Pepcid, Rocephin, DuoNeb, Lovenox, Flonase, and hydralazine. LABORATORY DATA: White blood cells 6.1, hemoglobin 14, hematocrit 42.4, platelets 211. Sodium 137, potassium 3.6, BUN 18, and creatinine 0.7. ASSESSMENT AND PLAN: Ms. Mara Walker is a 68-year-old lady with history of fall, hypertension, chronic obstructive lung disease, obstructive sleep apnea syndrome, morbid obesity, pneumonia, transient ischemic attack, diabetes mellitus, colitis, bilateral deep venous thromboses, obesity, degenerative joint disease of the knees. Seen by Infectious Disease and Pulmonary. Continue inhaled bronchodilators. Continue gastrointestinal and deep venous thrombosis prophylaxis. Physical therapy. The patient is little bit depressed. I called psychiatric consult. Waiting for sensitivity. Repeat laboratories. We will follow up. Lelo Allan MD MTDD
--- NOTE | 2018-11-25 10:43 | CP.PCM.APN ---
Subjective - Date & Time of Evaluation Date of Evaluation: 11/25/18 Time of Evaluation: 08:30 - Subjective Subjective: Pt seen and examined at bedside. States she does not feel good because her blood pressure is high. Pt admitted stopping all her medications at home because she was taking "29 medicines" and it was too much. Discussed with pt importance of being compliant to taking her medications and verbalized understanding. Objective - Vital Signs/Intake and Output Vital Signs (last 24 hours): Temp Pulse Resp BP Pulse Ox 98.4 F 98 H 18 148/68 95 11/25/18 06:00 11/25/18 07:45 11/25/18 06:00 11/25/18 07:45 11/25/18 06:00 Intake and Output: 11/25/18 11/25/18 06:59 18:59 Intake Total 720 Output Total 850 Balance -130 - Medications Medications: Current Medications Acetaminophen (Tylenol 325mg Tab) 650 mg PO Q4H PRN PRN Reason: Pain, Mild (1-3) Last Admin: 11/22/18 23:55 Dose: 650 mg Acetaminophen (Tylenol 325mg Tab) 650 mg PO Q6H PRN PRN Reason: Fever >100.4 F Last Admin: 11/23/18 15:26 Dose: 650 mg Albuterol/Ipratropium (Duoneb 3 Mg/0.5 Mg (3 Ml) Ud) 3 ml IH Q2H PRN PRN Reason: Shortness of Breath Albuterol/Ipratropium (Duoneb 3 Mg/0.5 Mg (3 Ml) Ud) 3 ml IH [id number] REPLACED BY [facility] Last Admin: 11/25/18 07:46 Dose: 3 ml Aspirin (Ecotrin) 81 mg PO DAILY REPLACED BY [facility] Last Admin: 11/24/18 09:50 Dose: 81 mg Diltiazem HCl (Cardizem) 60 mg PO Q8H REPLACED BY [facility] Enoxaparin Sodium (Lovenox) 40 mg SC DAILY REPLACED BY [facility]; Protocol Last Admin: 11/24/18 09:50 Dose: 40 mg Famotidine (Pepcid) 40 mg PO [facility] Last Admin: 11/24/18 22:09 Dose: 40 mg Fluticasone Propionate (Flonase) 1 actuation NS [facility] Last Admin: 11/24/18 22:09 Dose: 1 spray Hydralazine HCl (Apresoline) 25 mg PO QID REPLACED BY [facility] Last Admin: 11/24/18 22:08 Dose: 25 mg Ceftriaxone Sodium (Rocephin 1 Gram Ivpb) 1 gm in 100 mls @ 100 mls/hr IVPB DAILY REPLACED BY [facility]; Protocol Last Admin: 11/24/18 09:50 Dose: 100 mls/hr - Labs Labs: 11/24/18 06:45 11/24/18 06:45 PT 12.4 SECONDS (9.4-12.5) 11/22/18 16:33 INR 1.12 11/22/18 16:33 APTT 34.4 Seconds (26.9-38.3) 11/22/18 16:33 - Constitutional Appears: No Acute Distress - Neck Exam Neck Exam: Full ROM - Respiratory Exam Respiratory Exam: Clear to Ausculation Bilateral, NORMAL BREATHING PATTERN - Cardiovascular Exam Cardiovascular Exam: REGULAR RHYTHM, +S1, +S2 - GI/Abdominal Exam GI & Abdominal Exam: Soft, Normal Bowel Sounds - Rectal Exam Rectal Exam: Deferred - Neurological Exam Neurological Exam: Alert, Awake, Oriented x3 Assessment and Plan - Assessment and Plan (Free Text) Assessment: Pt is 68 y.o. female who presented to ED s/p fall. Now she is being treated for uncontrolled BP and UTI. Plan: Pt started on Hydralazine yesterday, added Cardizem today Continue to monitor BP Per Cardio, pt is for stress test tomorrow Pending ECHO result On Rocephin for UTI ID, Cardio, Pulm and Psych on consult Meds per MAR Physical Therapy recommends NESTOR SW/CM dc planning Will continue to follow
[2018-11-25] MEDS: Enoxaparin 40 mg Syringe SC SCH (11:11)
[2018-11-25] MEDS: cefTRIAXone 1 gm 1 GM/100 ML BAG IVPB SCH (11:11)
--- NOTE | 2018-11-25 15:31 | CP.PCM.PN ---
Subjective - Date & Time of Evaluation Date of Evaluation: 11/25/18 Time of Evaluation: 15:00 - Subjective Subjective: Infectious Disease Follow Up: November 25, 2018 68 yo female with extensive past medical history of IDDM, MICHAELLE, HTN, bilateral DVTs, COPD DJD, and neck pain presented with slip and fall with complaints of bilateral knee pain, neck pain, and headaches. Currently no fevers or leukocytosis. Urinalysis with signs of a potential UTI. Patient with known non-compliance with mediations as per PMD. Patient has not seen a doctor in several years. Lethargic and difficult to wake last night. More awake and alert. Blood cultures negative at 24 hours. Urine cultures still pending. On Rocephin and received a single dose of Gentamicin. No further fevers since last night but monitoring. No leukocytosis. Low procalcitonin which significantly reduces chances that this is sepsis. Objective - Vital Signs/Intake and Output Vital Signs (last 24 hours): Temp Pulse Resp BP Pulse Ox 98.4 F 90 18 156/79 H 95 11/25/18 06:00 11/25/18 11:13 11/25/18 06:00 11/25/18 11:13 11/25/18 06:00 Intake and Output: 11/25/18 11/25/18 06:59 18:59 Intake Total 720 Output Total 850 Balance -130 - Medications Medications: Current Medications Acetaminophen (Tylenol 325mg Tab) 650 mg PO Q4H PRN PRN Reason: Pain, Mild (1-3) Last Admin: 11/22/18 23:55 Dose: 650 mg Acetaminophen (Tylenol 325mg Tab) 650 mg PO Q6H PRN PRN Reason: Fever >100.4 F Last Admin: 11/23/18 15:26 Dose: 650 mg Albuterol/Ipratropium (Duoneb 3 Mg/0.5 Mg (3 Ml) Ud) 3 ml IH Q2H PRN PRN Reason: Shortness of Breath Albuterol/Ipratropium (Duoneb 3 Mg/0.5 Mg (3 Ml) Ud) 3 ml IH [id number] [facility] Last Admin: 11/25/18 13:06 Dose: Not Given Aspirin (Ecotrin) 81 mg PO DAILY [facility] Last Admin: 11/25/18 11:13 Dose: 81 mg Diltiazem HCl (Cardizem) 60 mg PO Q8H [facility] Last Admin: 11/25/18 11:12 Dose: 60 mg Enoxaparin Sodium (Lovenox) 40 mg SC DAILY [facility]; Protocol Last Admin: 11/25/18 11:11 Dose: 40 mg Famotidine (Pepcid) 40 mg PO HS [facility] Last Admin: 11/24/18 22:09 Dose: 40 mg Fluticasone Propionate (Flonase) 1 actuation NS HS [facility] Last Admin: 11/24/18 22:09 Dose: 1 spray Hydralazine HCl (Apresoline) 25 mg PO QID [facility] Last Admin: 11/25/18 11:13 Dose: 25 mg Ceftriaxone Sodium (Rocephin 1 Gram Ivpb) 1 gm in 100 mls @ 100 mls/hr IVPB DAILY [facility]; Protocol Last Admin: 11/25/18 11:11 Dose: 100 mls/hr - Labs Labs: 11/24/18 06:45 11/24/18 06:45 PT 12.4 SECONDS (9.4-12.5) 11/22/18 16:33 INR 1.12 11/22/18 16:33 APTT 34.4 Seconds (26.9-38.3) 11/22/18 16:33 - Constitutional Appears: Non-toxic, No Acute Distress, Chronically Ill - Head Exam Head Exam: ATRAUMATIC, NORMOCEPHALIC - Eye Exam Eye Exam: EOMI, PERRL Pupil Exam: NORMAL ACCOMODATION, PERRL - ENT Exam ENT Exam: Mucous Membranes Moist, Normal External Ear Exam, TM's Normal Bilaterally - Respiratory Exam Respiratory Exam: Clear to Ausculation Bilateral, NORMAL BREATHING PATTERN. absent: Rales, Rhonchi, Wheezes - Cardiovascular Exam Cardiovascular Exam: REGULAR RHYTHM, RRR, +S1, +S2 - GI/Abdominal Exam GI & Abdominal Exam: Soft, Normal Bowel Sounds. absent: Distended, Tenderness - Extremities Exam Extremities Exam: Full ROM, Normal Inspection - Neurological Exam Neurological Exam: Alert, Awake, CN II-XII Intact, Oriented x3 - Psychiatric Exam Psychiatric exam: Normal Affect, Normal Mood - Skin Skin Exam: Intact, Normal Color Assessment and Plan - Assessment and Plan (Free Text) Assessment: 68 yo Cauc female who does not follow with doctors and is not compliant with her medications presented with a fall and has been lethargic while in the hospital. Fevers up to 102.3 this afternoon. The patient's urinalysis with signs of UTI. On Rocephin for antibiotic treatment. Supportive care. Awaiting urine cultures. Urine appears to have been sent before Rocephin was given. Blood cultures taken after Rocephin was given. Given a single dose of Gentamicin to the patient yesterday. Chest X-ray negative. Obtain ESR and Procalcitonin. ESR was 33. Procalcitonin was 0.07. Severe Sepsis unlikely with low procalcitonin value. Most likely diagnosis is UTI. Awaiting urine cultures... 50-100k CFU/ml but mixed organisms. The patient's blood cultures are negative at 24 hours. Supportive care. Consider up to 7 days of antibiotic therapy. Thank you for allowing me to participate in the care of the patient, we will follow with you.
--- NOTE | 2018-11-25 16:33 | PN ---
DATE: 11/25/2018 PULMONARY PROGRESS NOTE REFERRING PHYSICIAN: Lelo Allan MD SUBJECTIVE: The patient is sitting in armchair in room, no acute distress. No overnight events reported. The patient reports that she did not wear BiPAP machine, because it was hot in room, but states that she feels better when she does wear the BiPAP machine, is willing to wear tonight. The patient does report having occasional cough and shortness of breath with exertion. No headache, rhinitis, chest pain, abdominal pain, nausea, vomiting, diarrhea, leg pain, or leg swelling reported. OBJECTIVE: GENERAL: No acute distress. VITAL SIGNS: Blood pressure 156/79, pulse 90, temperature 98.4, and oxygen saturation 95% on room air. HEENT: Moist mucous membrane. Crowded airway. Mallampati score of 4. NECK: Supple. No JVD. Short and thick. RESPIRATORY: Fair airflow bilaterally. CARDIOVASCULAR: S1 and S2 audible. ABDOMEN: Soft and nontender. No distension. No organomegaly. EXTREMITIES: No bilateral lower extremity edema. NEUROLOGIC: Awake, alert, verbal, follows commands. MEDICATIONS: Reviewed. Tylenol 650 every 4 hours p.r.n. mild pain, Tylenol 650 every 6 hours p.r.n. fever greater than 100.4, DuoNeb 3 mL inhalation every 2 hours p.r.n., DuoNeb 3 mL inhalation every 6 hours, aspirin 81 mg daily, Rocephin 1 g daily, Cardizem 60 mg every 8 hours, Lovenox 40 mg subcutaneously daily, Pepcid 40 mg at bedtime, Flonase nasal spray at bedtime, and hydralazine 25 mg 4 times a day. LABORATORY DATA: Reviewed. Blood cultures preliminary, no growth after 48 hours. Echocardiogram report pending. IMPRESSION AND PLAN: History of falls, hypertension, chronic obstructive pulmonary disease, obstructive sleep apnea syndrome, morbid obesity, history of pneumonia, transient ischemic attack, diabetes mellitus, colitis, bilateral deep venous thrombosis, arthritis of the knee, degenerative joint disease, and depression. Pulmonary point of view, continue inhaled bronchodilators. Continue gastric prophylaxis. Continue to encourage BiPAP use at bedtime, sleep apnea precaution, head of bed elevated to 45 degrees. Continue consult with Infectious Disease. The patient will need sleep study and full pulmonary function test as outpatient. Recommend out of bed to chair, physical therapy. The patient is seen and examined with Dr. Nuñez. Discussed assessment and plan as described above. The patient is seen and examined with Blayne Romero, nurse practitioner. Discussed assessment and plan as described above. Thank you for this consult. We will follow with you. Blayne Romero APN Evangelist Nuñez MD MTDHola
--- NOTE | 2018-11-25 18:36 | CARD ---
APPROVED REPORT Date of service: 11/25/2018 EXAM: Two-dimensional and M-mode echocardiogram with Doppler and color Doppler. INDICATION Dyspnea LV Function:SystolicDiastolic 2D DIMENSIONS Left Atrium (2D)4.1 (1.6-4.0cm)IVSd1.9 (0.7-1.1cm) LVDd4.6 (3.9-5.9cm)PWd1.7 (0.7-1.1cm) LVDs3.4 (2.5-4.0cm)FS (%) 27.3 % LVEF (%)53.2 (>50%) M-Mode DIMENSIONS Aortic Root2.30 (2.2-3.7cm)Aortic Cusp Exc.1.90 (1.5-2.0cm) Aortic Valve AoV Peak Fteoghte789.0cm/Benjamin Peak GR.17mmHg Mitral Valve MV E Wyelwfxd14.4cm/sMV A Gcbiqwab702.0cm/sE/A ratio0.7 TDI E/Lateral E'0.0E/Medial E'0.0 Tricuspid Valve TR Peak Hhsfjqmr042hx/sRAP [id number] Peak Gr.6mmHg [id number] LEFT VENTRICLE The left ventricle is normal size. There is moderate concentric left ventricular hypertrophy. The left ventricular function is low normal.EF-50-55% There is normal LV segmental wall motion. Transmitral Doppler flow pattern is Grade III-reversible restrictive diastolic dysfunction. No left ventricle thrombus noted on this study. There is no ventricular septal defect visualized. There is no left ventricular aneurysm. There is no mass noted in the left ventricle. RIGHT VENTRICLE The right ventricle is normal size. There is normal right ventricular wall thickness. The right ventricular systolic function is normal. ATRIA The left atrium is mildly dilated. The right atrium size is normal. The interatrial septum is intact with no evidence for an atrial septal defect. AORTIC VALVE The aortic valve is calcified but opens well. The aortic valve is moderately sclerotic. There is trace aortic regurgitation. There is no aortic valvular stenosis. There is no aortic valvular vegetation. MITRAL VALVE The mitral valve is thickened but opens well. Mitral regurgitation is trace. There is no mitral valve stenosis. There is no evidence of mitral valve prolapse. TRICUSPID VALVE The tricuspid valve leaflets are thickened , but open well. There is trace tricuspid regurgitation.RVSP_16 mmof hg. There is no tricuspid valve stenosis. There is no tricuspid valve prolapse or vegetation. PULMONIC VALVE The pulmonary valve is normal in structure. There is trace pulmonic valvular regurgitation. There is no pulmonic valvular stenosis. GREAT VESSELS The aortic root is normal in size. The ascending aorta is normal in size. The pulmonary artery is normal. The IVC is normal in size and collapses >50% with inspiration. PERICARDIAL EFFUSION There is no pleural effusion. There is no pericardial effusion. <Conclusion> The left ventricle is normal size. There is moderate concentric left ventricular hypertrophy. The left ventricular function is low normal.EF-50-55% TRACE MR/TR/AR/PI RVSP-16 mmof hg. There is no pericardial effusion. No vegetation or thrombus noted.
--- NOTE | 2018-11-25 19:33 | CON ---
DATE: 11/25/2018 REASON FOR CONSULTATION: Cardiac evaluation, shortness of breath, uncontrolled hypertension and history of hypertension. 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 Denies any definite chest pain, but complain of knee pain and difficulty in ambulating and walking. PAST MEDICAL HISTORY: Past history significant for hypertension, COPD, obstructive sleep apnea, morbid obesity, history of pneumonia, history of TIA/CVA with some left-sided weakness, diabetes, hypertension, and morbid obesity. PAST SURGICAL HISTORY: Significant for history of appendectomy, history of partial colectomy because of the colitis and history of frequent fall, history of bilateral DVT, history of depression, and history of arthritis of the knee. SOCIAL HISTORY: Denies any smoking. Denies any history of alcohol abuse. ALLERGIES: TO CODEINE AND FISH. CURRENT MEDICATIONS: The patient is taking at home Tylenol, Duo nebulizer treatment inhalation, and baby aspirin. PREVIOUS CARDIAC WORKUP FOLLOWS: The patient had echocardiography 09/27/2016, ejection fraction 55%, [id number] aortic regurgitation, [id number] mitral regurgitation, trace tricuspid regurgitation, and aortic sclerosis with mild aortic stenosis dated 09/27/2016. The patient once also being evaluated for gastric bypass 10 years ago and since that time she has also stress test done that was told negative. EKG showed normal sinus, right bundle-branch block, and left anterior hemiblock. Previous EKG dated 12/10/2016 also shows sinus tachycardia with right bundle and left anterior hemiblock. REVIEW OF SYSTEMS: As per HPI and shortness of breath and difficulty in ambulating. PHYSICAL EXAMINATION: VITAL SIGNS: As follows; height of the patient 5 feet 2 inches, weight of the patient 285 pounds, and body mass index 53 kg/m2. Temperature afebrile, heart rate 98, and blood pressure 140/68. HEENT: PERRLA. Extraocular muscles intact. NECK: Supple. No carotid bruit. No thyromegaly. CHEST: Clear to auscultation. HEART: S1 and S2 regular. ABDOMEN: Soft. EXTREMITIES: Clubbing and cyanosis negative. LABORATORY DATA: WBC 6.1, hemoglobin 14, hematocrit 42.4, and platelet count 211. Chemistry shows sodium 133, potassium 3.6, chloride 100, carbon dioxide 29, anion gap of 11, BUN 18, and creatinine 0.7. IMPRESSION AND PLAN: A 68-year-old female with past medical history of deep venous thrombosis, morbid obesity, hypertension, hyperlipidemia, bed bound, when evaluated for 10 years ago, stress test at that time was normal, history of mild aortic stenosis versus sclerosis, mild tricuspid regurgitation in 2016, admitted with generalized weakness, difficulty in ambulating and shortness of breath, multiple history of coronary artery disease, suggest echo and stress test. Also suggest to have deep venous thrombosis prophylaxis. The patient is set up for deep venous thrombosis, also history of deep venous thrombosis. We will get lipid profile TSH, hemoglobin A1c. Actually, the patient had hemoglobin A1c is 9 that shows very poor compliance also. Does not take medication. Because as mentioned multiple risk factor suggest stress test, rule out underlying coronary artery disease. Very poor noncompliant, morbid obesity as well as diabetic poorly controlled. We will keep n.p.o. after 12 midnight for stress test in the morning. We will follow with you. Thank you Dr. Allan for providing us the opportunity in taking care of the patient, Mara Walker. Evangelist Villatoro MD
--- NOTE | 2018-11-25 20:15 | CON ---
DATE: 11/25/2018 HISTORY OF PRESENT ILLNESS: In short, the patient is a 68-year-old female with reported history of depression and anxiety. The patient had history of being admitted to the psychiatric inpatient unit, also history of three suicidal attempts. At this time, the patient was admitted on the medical site for falls as well as was found to have infection. The patient has history of depression, anxiety, and presented to be tearful, that is why medical team called for a psychiatric evaluation. This credit underwriter is very familiar with this patient from the previous consultation services, which took place here in [place] in 2017. The patient presented to be alert, pleasant, cooperative, very tearful. The patient reported that she stopped all her medications which are Effexor as well as Wellbutrin, and the patient is not seeing psychiatrist in the community, who was Dr. Marky Trinh. The patient reported that she feels depressed, at times hopeless, at times she is questioning her own mortality. The patient denied hearing voices, denied seeing things, denied paranoid ideations. The patient reported that she lives in boarding home, and she does not like the place. The patient reported that she does not like place as well as people do not like her there. The patient said that she does not mind to start antidepressants at this moment, but she does not want to be on multiple psychotropic medications, which is understandable. PHYSICAL EXAMINATION: VITAL SIGNS: Reviewed. Temperature 98.4, pulse 98, blood pressure 148/68, respirations of 18, oxygen saturation of 95. MEDICATIONS: Medications reviewed. The patient is on Tylenol, DuoNeb, aspirin, Rocephin, Cardizem, Lovenox, Pepcid, Flonase, and hydralazine. LABORATORY DATA: Labs reviewed. Coagulation reviewed. Chemistry reviewed. First troponin is 0.07. Urinalysis reviewed. Leukocyte esterase trace. Microbiology reviewed. MENTAL STATUS EXAMINATION: The patient presented to be alert. Fair eye contact. Mood described as depressed and hopeless. Affect was tearful and mood congruent. Thought process seems to be coherent and goal directed. Thought content, the patient denied visual, auditory, or tactile hallucinations. Denied paranoid ideation, but the patient is mildly paranoid about people do not like her. Insight and judgment seemed to be fair. Impulses are well controlled. PAST PSYCHIATRIC HISTORY: The patient had three suicidal attempts, most recent was 2 years ago, after what the patient was admitted at [facility]. The patient overdosed on psychotropic medication. The patient made statement that she was done with her life. The patient also reported two other suicidal attempts, first was at the age of 20, second was at age of 30, all the time the patient either overdosed on psychotropic medication or overdosed on aspirin. The patient reported that she is feeling depressed and hopeless at the present moment because her close friend and she got to know about this today. IMPRESSION: As per history, major depressive disorder as well as anxiety, as based on previous notes, some developmental disability needs to be ruled out. PLAN: Continue current management. Continue current medication. The patient does not mind to be resumed on psychotropic medications. We will review the history, most likely either Effexor or Zoloft might be started. This credit underwriter cannot exclude that after medical stabilization, the patient might be improving psychiatrically, but at this point most likely the patient would require psych admission. This credit underwriter also educated the patient about options of ECT. The patient declined that option. Meanwhile, continue current management. Continue current medication. We will start some medication for sleep. Should you have any questions, give me a call back. Thank you very much for letting me participate in the care of your patient. Adriane Marquez MD MISHA
[2018-11-25] MEDS: Fluticasone Nasal 50 mcg/Spray NS SCH (22:09)
[2018-11-26] MEDS: Albuterol-Ipratrop 3 mg / 0.5 (3 ml) UD IH SCH ×4 (01:37→19:56)
--- NOTE | 2018-11-26 03:20 | PN ---
DATE: 11/25/2018 SUBJECTIVE: The patient is a 68-year-old female. The patient was seen and examined at the bedside on 11/25/2018. Looking comfortable. Went for echocardiography today. Complaining of knee pain. I wrote consulting Dr. Genao. The patient is asking about intra-articular injections. PHYSICAL EXAMINATION: VITAL SIGNS: Blood pressure 156/79, pulse 90, temperature 98.4, oxygen saturation 95%. HEENT: Head: Normocephalic and atraumatic. Eyes: PERRLA. Extraocular muscles intact. Conjunctivae clear. Nose patent. NECK: Supple. No carotid bruits. No JVD or thyromegaly. CHEST: Bilaterally symmetrical. HEART: S1 and S2 positive. LUNGS: Clear to auscultation. ABDOMEN: Soft. Bowel sounds present. No organomegaly. EXTREMITIES: No bilateral extremity edema. NEUROLOGIC: The patient is awake and alert. Follows simple commands. MEDICATIONS: Tylenol, DuoNeb, Rocephin, Cardizem, Lovenox, Pepcid, Flonase, and hydralazine. LABORATORY DATA: We do not have labs today, but I have reviewed old labs. Blood cultures in 48 hours, now growth. Echo was done today. ASSESSMENT AND PLAN: Ms. Mara Walker is a 68-year-old lady with bilateral knee pain, rule out degenerative joint disease. Consultation with Dr. Genao. h/o hypertension, history of rhabdomyolysis in the past, chronic obstructive lung disease, obstructive sleep apnea syndrome, history of deep venous thrombosis bilaterally, morbid obesity, history of pneumonia, transient ischemic attack, diabetes mellitus, and colitis. As per the patient, she is still feeling depressed. Consult call with Dr. Adriane Marquez. Reviewing her notes. Gastrointestinal and deep venous thrombosis prophylaxis. Stress test tomorrow. Antibiotics as per Infectious Disease. Needs good physical therapy. Repeat labs. We will follow. Lelo Allan MD [facility]ITAL[facility]
[2018-11-26] MEDS ORDERED: Bupivacaine 0.5% Inj(30mL) IJ ONE (06:54)
[2018-11-26] MEDS ORDERED: MethylPREDNISolone Depo 40 mg/ml Inj IM ONE (06:54)
--- NOTE | 2018-11-26 07:58 | CP.PCM.PN ---
Subjective - Date & Time of Evaluation Date of Evaluation: 11/26/18 Time of Evaluation: 06:25 - Subjective Subjective: Awake, lying in bed, no distress Reason for consultation and follow up: Cardiac evaluation of shortness of breath and uncontrolled hypertension. History of hypertension, COPD,CVA/TIA Seen and examined by me and Dr. Villatoro Objective - Vital Signs/Intake and Output Vital Signs (last 24 hours): Temp Pulse Resp BP Pulse Ox 100 F H 87 18 149/63 95 11/25/18 21:31 11/25/18 22:09 11/25/18 21:31 11/25/18 22:09 11/25/18 21:31 Intake and Output: 11/26/18 11/26/18 06:59 18:59 Intake Total 740 Balance 740 - Medications Medications: Current Medications Acetaminophen (Tylenol 325mg Tab) 650 mg PO Q4H PRN PRN Reason: Pain, Mild (1-3) Last Admin: 11/22/18 23:55 Dose: 650 mg Acetaminophen (Tylenol 325mg Tab) 650 mg PO Q6H PRN PRN Reason: Fever >100.4 F Last Admin: 11/25/18 18:56 Dose: 650 mg Albuterol/Ipratropium (Duoneb 3 Mg/0.5 Mg (3 Ml) Ud) 3 ml IH Q2H PRN PRN Reason: Shortness of Breath Albuterol/Ipratropium (Duoneb 3 Mg/0.5 Mg (3 Ml) Ud) 3 ml IH [id number] [facility] Last Admin: 11/26/18 07:21 Dose: Not Given Aspirin (Ecotrin) 81 mg PO DAILY [facility] Last Admin: 11/25/18 11:13 Dose: 81 mg Diltiazem HCl (Cardizem) 60 mg PO Q8H [facility] Last Admin: 11/26/18 02:57 Dose: Not Given Enoxaparin Sodium (Lovenox) 40 mg SC DAILY [facility]; Protocol Last Admin: 11/25/18 11:11 Dose: 40 mg Famotidine (Pepcid) 40 mg PO [facility] Last Admin: 11/25/18 22:10 Dose: 40 mg Fluticasone Propionate (Flonase) 1 actuation NS [facility] Last Admin: 11/25/18 22:09 Dose: Not Given Hydralazine HCl (Apresoline) 25 mg PO QID [facility] Last Admin: 11/25/18 22:09 Dose: 25 mg Ceftriaxone Sodium (Rocephin 1 Gram Ivpb) 1 gm in 100 mls @ 100 mls/hr IVPB DAILY [facility]; Protocol Stop: 11/27/18 10:59 Last Admin: 11/25/18 11:11 Dose: 100 mls/hr - Labs Labs: 11/24/18 06:45 11/24/18 06:45 PT 12.4 SECONDS (9.4-12.5) 11/22/18 16:33 INR 1.12 11/22/18 16:33 APTT 34.4 Seconds (26.9-38.3) 11/22/18 16:33 - Constitutional Appears: Non-toxic, No Acute Distress - Head Exam Head Exam: NORMAL INSPECTION, NORMOCEPHALIC - Eye Exam Eye Exam: Normal appearance Pupil Exam: NORMAL ACCOMODATION - ENT Exam ENT Exam: Mucous Membranes Moist, Normal Exam - Respiratory Exam Respiratory Exam: Decreased Breath Sounds, NORMAL BREATHING PATTERN - Cardiovascular Exam Cardiovascular Exam: +S1, +S2 - GI/Abdominal Exam GI & Abdominal Exam: Soft, Normal Bowel Sounds - Extremities Exam Extremities Exam: Full ROM Additional comments: 1-2+edema - Neurological Exam Neurological Exam: Alert, Awake, Oriented x3 - Psychiatric Exam Psychiatric exam: Normal Affect, Normal Mood - Skin Skin Exam: Dry, Normal Color, Warm Assessment and Plan - Assessment and Plan (Free Text) Assessment: A 68 year old female who came in to the ER due to having trouble walking and bilateral knee pain.History of bilateral DVT, IDDM,obstructive sleep apnea, pneumonia, hyperlipidemia, hypertension,CVA/TIA ,weakness on the left side, walks with walker, morbidly obese, arthritis of knees, degenerative joint disease, depression,history of frequent fall, colitis with partial colectomy, appendectomy.Consult was called due to uncontrolled hypertension. Denies chest pain. Chest X ray unremarkable. Echo was done yesterday and showed LVEF 50-55%, Trace MR/TR/AR/PI RVSP 16 mmHg, no vegetation or thrombus. For stress test today. Controlled blood pressure now. On antibiotics for UTI. ID on consult. Plan: For stress test today Denies chest pain Blood pressure controlled Heart rate controlled On ASA 81 mg daily,Cardizem 60 mg every 8 hours Apresoline 25 mg QID Continue current treatment Continue current medications Continue IV antibiotics as ordered by ID Will follow up Plan and treatment discussed with Dr. Villatoro
[2018-11-26] MEDS ORDERED: Aminophylline 25 mg/ml Inj ONE (08:45)
[2018-11-26] MEDS ORDERED: Potassium Chloride 20 mEq ER Tab PO ONE (10:50)
[2018-11-26] MEDS: Enoxaparin 40 mg Syringe SC SCH (11:42)
[2018-11-26] MEDS: cefTRIAXone 1 gm 1 GM/100 ML BAG IVPB SCH (11:48)
--- NOTE | 2018-11-26 12:19 | CP.PCM.PCO ---
Physician Communication Note - Physician Communication Note Physician Communication Note: Per PMD, vanda dc to [facility] in AM if remains [id number]
--- NOTE | 2018-11-26 12:35 | PN ---
DATE: 11/26/2018 PULMONARY PROGRESS NOTE REFERRING PHYSICIAN: Lelo Allan MD SUBJECTIVE: The patient is seen after stress test was done. No acute distress. No overnight events reported. Reports that she did not wear BiPAP machine last night. Reports still having occasional cough and some shortness of breath with exertion. No headache, rhinitis, chest pain, abdominal pain, nausea, vomiting, diarrhea, leg pain or leg swelling reported. PHYSICAL EXAMINATION: GENERAL: No acute distress. VITAL SIGNS: Blood pressure 150/80, pulse 80, temperature 98.5, and oxygen saturation 92% on room air. HEENT: Moist mucous membrane. Mallampati score of 4. Crowded airway. NECK: Supple. No JVD. Short and thick. RESPIRATORY: Fair airflow bilaterally. CARDIOVASCULAR: S1 and S2 audible. ABDOMEN: Soft and nontender. No distention. No organomegaly. EXTREMITIES: No bilateral lower extremity edema. NEUROLOGIC: Awake, alert, verbal, follows commands. MEDICATIONS: Reviewed. Tylenol 650 every 4 hours p.r.n. mild pain, Tylenol 650 every 6 hours p.r.n. fever greater than 100.4, DuoNeb 3 mL inhalation every 2 hours p.r.n., DuoNeb 3 mL inhalation every 6 hours, aspirin 81 mg daily, Rocephin 1 g daily, diltiazem 60 mg every 8 hours, Lovenox 40 mg subcutaneously daily, Pepcid 40 mg at bedtime, Flonase nasal spray at bedtime, and hydralazine 25 mg 4 times a day. LABORATORY DATA: Reviewed. Blood cultures preliminary, no growth after three days. Echocardiogram showed moderate concentric left ventricular hypertrophy, ejection fraction 50 to 55, trace MR/TR/AR/PI, RVSP 16, no vegetation, no thrombus, no pericardial effusion. Stress test pending report. IMPRESSION AND PLAN: History of falls, hypertension, chronic obstructive pulmonary disease, obstructive sleep apnea syndrome, morbid obesity, history of pneumonia, transient ischemic attack, diabetes mellitus, bilateral deep venous thrombosis history, arthritis of the knee, degenerative joint disease, depression, and colitis. Pulmonary point of view, continue inhaled bronchodilators. Gastric prophylaxis. Deep venous thrombosis prophylaxis. Continue to encourage BiPAP use at bedtime, sleep apnea precaution, head of bed elevated to 45 degrees. Discussed with the patient that will need to use BiPAP and the patient agreed that she would try to use BiPAP tonight. Continue followup with Infectious Disease. Out of bed to chair, physical therapy. The patient will need sleep study and full pulmonary function test as outpatient. The patient is seen and examined with Dr. Nuñez. Discussed assessment and plan as described above. The patient is seen and examined with Blayne Romero, nurse practitioner. Discussed assessment and plan as described above. Thank you for this consult. We will follow with you. Blayne Romero APN Evangelist Nuñez MD [facility]
--- NOTE | 2018-11-26 12:59 | CON ---
DATE: 11/26/2018 ORTHOPEDIC CONSULTATION She is a 68-year-old female in room 563, bed 1. HISTORY OF PRESENT ILLNESS: I was asked to see her by Dr. Allan for bilateral knee pain. Her BMI is 52 and bilateral knees on x-ray shows decrease joint space more on the medial side than lateral side, not much effusion. I told her we inject her knees for pain relief with Depo-Medrol and Marcaine, but the best thing as an outpatient we can give her euflexxa, which is an injection that wiil last for 6 months. We had to give 3 injections over a period of 2 weeks. Right now she had to be transported to echocardiogram. So, I will give her the injection of Depo-Medrol and Marcaine to whatever knee is worse and then wait a day or two and inject the other knee with the same medicines, it is better one knee at a time in case she has reaction or elevate some blood sugar too much. So, I will come back and see her at the echocardiogram and I will inject the most involved pain from knee with Depo-Medrol and Marcaine and sent it to physical therapy for ambulation with a cane because she has to strenghten _those knees. Kevin Genao DO [facility]
--- NOTE | 2018-11-26 13:34 | CP.PCM.PN ---
Subjective - Date & Time of Evaluation Date of Evaluation: 11/26/18 Time of Evaluation: 13:00 - Subjective Subjective: Infectious Disease Follow Up: November 26, 2018 68 yo female with extensive past medical history of IDDM, MICHAELLE, HTN, bilateral DVTs, COPD DJD, and neck pain presented with slip and fall with complaints of bilateral knee pain, neck pain, and headaches. Currently no fevers or leukocytosis. Urinalysis with signs of a potential UTI. Patient with known non-compliance with mediations as per PMD. Patient has not seen a doctor in several years. Lethargic and difficult to wake last night. More awake and alert. Blood cultures negative at 24 hours. Urine cultures still pending. On Rocephin and received a single dose of Gentamicin. No further fevers since last night but monitoring. No leukocytosis. Low procalcitonin which significantly reduces chances that this is sepsis. Patient is improving overall. Afebrile technically but was up to 100.0 F overnight. Urine cultures showing 50-100k CFU/ml but multiple organisms. Objective - Vital Signs/Intake and Output Vital Signs (last 24 hours): Temp Pulse Resp BP Pulse Ox 98.5 F 91 H 18 135/76 92 L 11/26/18 06:00 11/26/18 11:48 11/26/18 06:00 11/26/18 11:48 11/26/18 06:00 Intake and Output: 11/26/18 11/26/18 06:59 18:59 Intake Total 740 Balance 740 - Medications Medications: Current Medications Acetaminophen (Tylenol 325mg Tab) 650 mg PO Q4H PRN PRN Reason: Pain, Mild (1-3) Last Admin: 11/22/18 23:55 Dose: 650 mg Acetaminophen (Tylenol 325mg Tab) 650 mg PO Q6H PRN PRN Reason: Fever >100.4 F Last Admin: 11/25/18 18:56 Dose: 650 mg Albuterol/Ipratropium (Duoneb 3 Mg/0.5 Mg (3 Ml) Ud) 3 ml IH Q2H PRN PRN Reason: Shortness of Breath Albuterol/Ipratropium (Duoneb 3 Mg/0.5 Mg (3 Ml) Ud) 3 ml IH [id number] [facility] Last Admin: 11/26/18 13:05 Dose: Not Given Aspirin (Ecotrin) 81 mg PO DAILY [facility] Last Admin: 11/26/18 11:43 Dose: 81 mg Diltiazem HCl (Cardizem) 60 mg PO Q8H [facility] Last Admin: 11/26/18 11:48 Dose: 60 mg Enoxaparin Sodium (Lovenox) 40 mg SC DAILY [facility]; Protocol Last Admin: 11/26/18 11:42 Dose: 40 mg Famotidine (Pepcid) 40 mg PO HS [facility] Last Admin: 11/25/18 22:10 Dose: 40 mg Fluticasone Propionate (Flonase) 1 actuation NS [facility] Last Admin: 11/25/18 22:09 Dose: Not Given Hydralazine HCl (Apresoline) 25 mg PO QID [facility] Last Admin: 11/26/18 11:48 Dose: 25 mg Ceftriaxone Sodium (Rocephin 1 Gram Ivpb) 1 gm in 100 mls @ 100 mls/hr IVPB DAILY [facility]; Protocol Stop: 11/27/18 10:59 Last Admin: 11/26/18 11:48 Dose: 100 mls/hr - Labs Labs: 11/24/18 06:45 11/24/18 06:45 PT 12.4 SECONDS (9.4-12.5) 11/22/18 16:33 INR 1.12 11/22/18 16:33 APTT 34.4 Seconds (26.9-38.3) 11/22/18 16:33 - Constitutional Appears: Non-toxic, No Acute Distress, Chronically Ill - Head Exam Head Exam: ATRAUMATIC, NORMOCEPHALIC - Eye Exam Eye Exam: EOMI, PERRL Pupil Exam: NORMAL ACCOMODATION, PERRL - ENT Exam ENT Exam: Mucous Membranes Moist, Normal External Ear Exam, TM's Normal Bilaterally - Neck Exam Neck Exam: Full ROM, Normal Inspection - Respiratory Exam Respiratory Exam: Clear to Ausculation Bilateral, NORMAL BREATHING PATTERN. absent: Rales, Rhonchi, Wheezes - Cardiovascular Exam Cardiovascular Exam: REGULAR RHYTHM, RRR, +S1, +S2 - GI/Abdominal Exam GI & Abdominal Exam: Soft, Normal Bowel Sounds. absent: Distended, Tenderness - Extremities Exam Extremities Exam: Full ROM, Normal Inspection - Neurological Exam Neurological Exam: Alert, Awake, CN II-XII Intact, Oriented x3 - Psychiatric Exam Psychiatric exam: Normal Affect, Normal Mood - Skin Skin Exam: Intact, Normal Color Assessment and Plan - Assessment and Plan (Free Text) Assessment: 68 yo Cauc female who does not follow with doctors and is not compliant with her medications presented with a fall and has been lethargic while in the hospital. Fevers up to 102.3 this afternoon. The patient's urinalysis with signs of UTI. On Rocephin for antibiotic treatment. Supportive care. Awaiting urine cultures. Urine appears to have been sent before Rocephin was given. Blood cultures taken after Rocephin was given. Given a single dose of Gentamicin to the patient yesterday. Chest X-ray negative. Obtain ESR and Procalcitonin. ESR was 33. Procalcitonin was 0.07. Severe Sepsis unlikely with low procalcitonin value. Most likely diagnosis is UTI. Awaiting urine cultures... 50-100k CFU/ml but mixed organisms. The patient's blood cultures are negative at 48 hours. Temperature up to 100.0 F in past 24 hours. Supportive care. Consider up to 7 days of antibiotic therapy. Thank you for allowing me to participate in the care of the patient, we will follow with you.
--- NOTE | 2018-11-26 14:17 | CARD ---
APPROVED REPORT Date of service: 11/26/2018 Protocol: LEXISCAN Test Type: Lexiscan Sestamibi Stress Test Attending Physician: Dr. Evangelist Herrera Referring Physician: Dr. Lelo Allan Test Indications: Chest Pain Height:5 ft 2 in Weight:285lbs Medications: Tylenol,Duoneb,Ecotrin, Rocephin, Cardizem,Lovenox, Pepcid, Flonase Apresoline Medical History: 68 year old female with a history of diabetes,COPD, HTN,high cholesterol, Stroke,D.J.D., pneumonia, arthritis Target HR: 152 bpm Resting ECG: RSR. RBBB. Resting Heart Rate: 80 bpm Resting Blood Pressure: 150/80mmHg Submaximum (85%): 129 bpm PROCEDURE Pharmacologic stress testing was performed using 0.4mg per 5ml of regadenoson given intravenously over 7-10 seconds. POST EXERCISE Reason for Termination: Protocol completed Target HR: No Max HR: 81 bpm 63% of Maximum Predicted HR: 152 bpm Exercise duration: 00:32 min:sec, 0 Stage Exercise capacity: 1.0METs Max Blood Pressure: 150/80mmHg Blood Pressure response to exercise: resting hypertension - appropriate response Heart Rate response to exercise: appropriate Chest Pain: No, none Angina index: 0 Arrhythmia: No, none ST Change: No, none Deviation: 0 mm TEST SUMMARY [id number]. INFUSIONDOSE 100:[id number]/.0. [id number]. INTERPRETATION Stress EKG Conclusion: IV LEXISCAN NUCLEAR STRESS TEST NEGATIVE FOR CHEST PAIN AND NEGATIVE FOR ST-T CHANGES. NUCLEAR SCAN REPORT PENDING. Signed by Evangelist Herrera Electronically Approved: 11/26/2018 10:36:09 EXAM: Myocardial Perfusion REST/STRESS Stress Test Type: Pharmacologic Imaging Protocol The imaging protocol used to acquire images was Rest Tc-99m/stress Tc-99m 1 day Rest Spect myocardial perfusion imaging was performed in supine position 50 minutes following the injection of 10.3 mCi of Tc-99 Myoview. At peak stress, the patient was injected intravenously with 30.2mCi of Tc-99 tetrofosmin after an infusion time of 0 minutes and 10 seconds. Gated Stress Spect was performed 70 minutes after intravenous Tc-99 Myoview injection. The images were gated to evaluate regional wall motion and calculate ventricular ejection fraction.Images were reconstructed using backfilter projection method in short horizontal and verticle long axis. Spect slices were generated. LV Perfusion The quality of the study is good. The left ventricle is mildly enlarged in size with thickened myocardium. The right ventricle is unremarkable. The lung uptake is within normal limits. The distribution of tracer reveals heterogeneous uptake without discrete perfusion defect on the stress study. The rest myocardial perfusion study shows no significant change. Wall Motion Wall motion study shows good contractility of the left ventricle. LVEF = 71%. Conclusion 1. Normal SPECT myocardial perfusion study. 2. Heterogeneous activities are most likely due to breast/ soft tissue attenuation. 3. Normal gated wall motion of the left ventricle.
[2018-11-26 14:26] LABS: HEMOGLOBIN 13.7 g/dL (12.0-16.0); MEAN CELL VOLUME 85.7 fl (80.0-105.0); MEAN CORPUSCULAR HEMOGLOBIN 28.8 pg (25.0-35.0); MEAN CORPUSCULAR HGB CONC 33.6 g/dl (31.0-37.0); MEAN PLATELET VOLUME 9.9 fl (7.0-11.0); RBC 4.76 10^6/uL (3.5-6.1); RED CELL DISTRIBUTION WIDTH 13.2 % (11.5-14.5)
--- NOTE | 2018-11-26 14:40 | CP.PCM.PCO ---
Physician Communication Note - Physician Communication Note Physician Communication Note: pt had a stress test while this resume writer rounded, will f/u tomorrow or today
[2018-11-26 14:44] LABS: BLOOD UREA NITROGEN 13 mg/dL (7-21); CALCIUM 8.7 mg/dL (8.4-10.5); GFR NON-AFRICAN AMERICAN > 60
--- NOTE | 2018-11-26 19:17 | PN ---
DATE: 11/26/2018 SUBJECTIVE: In short, the patient is a 68-year-old female with reported history of mood spectrum disorder. Please see previous notes for more detailed information. Today, the patient was at cardiac stress test that is why this typewriter aligner missed the patient and this typewriter aligner follow up on the patient at the evening time. The patient presented to be tearful. Her mood is depressed, hopeless, and helpless. The patient denied thoughts of harming herself or others. The patient opened to the option to go to the psychiatric inpatient unit after medical stabilization, but the patient made it clear that initially she wants to go to subacute rehab to gain her strength back. Meanwhile, this typewriter aligner would suggest Prozac, which needs to be initiated 10 mg daily and Sonata was offered. The patient agreed with the medication. Risks, benefits, and alternatives were discussed with the patient. OBJECTIVE: VITAL SIGNS: Reviewed. MENTAL STATUS EXAM: The patient appears to be tearful and depressed. Mood described as not so good. Affect was tearful and mood congruent. Thought process seems to be coherent. Thought content, the patient denied visual, auditory, or tactile hallucinations. Denied paranoid ideation. The patient denied thoughts of harming herself or others. Denied intent or plan. Insight and judgment seems to be improving. Impulses are well controlled. Collaterals from the nursing staff, the patient has episodes of irritability and hurtful comments, but no agitation or aggression. MEDICATIONS: Reviewed. LABORATORY DATA: Reviewed. Coagulation reviewed. IMPRESSION: Major depressive disorder, rule out mood disorder due to general medical condition, rule out bipolar disorder as per history. PLAN: Prozac was started. Sonata was started. We will follow up and advise accordingly. This typewriter aligner would suggest psychiatric admission, but the patient wants to go to subacute rehab first. Thank you very much for letting me to participate in the care of your patient. Adriane Marquez MD [facility]
[2018-11-26 21:48] VITALS: RESP 18
[2018-11-26] MEDS: Fluticasone Nasal 50 mcg/Spray NS SCH (22:06)
--- NOTE | 2018-11-27 01:53 | PROCN ---
DATE: 11/26/2018 _due to the fact that I saw her this morning, but I could not take care of her knees at that time. She has moderate osteoarthritis of both knees. At this time, the left is worse than the right with decreased joint space in the medial side with minimal effusion, so I said I will be back this afternoon at 6 o'clock now to inject the left knee, which is the more symptomatic knee with Depo-Medrol and Marcaine, which was done without an incident. She should feel a lot better, so she will go to therapy and ambulate because we have to keep that knee muscle strong, but she should minimize stairs that would aggravate her arthritis and the low chairs. So, hopefully with that injection, she will feel better in a day or two, we will do the right knee and I told her several weeks from now, she is at home and if she still has pain, we could give you Flexor as an outpatient. This is in the office once a week for 3 injections and that should help even better than Depo-Medrol Injection, which will gave today. FINAL DIAGNOSIS: Moderate osteoarthritis both knees left worse than the right today. PLAN: I will give her physical therapy and cortisone injection. Kevin Genao DO MTDD
[2018-11-27] MEDS: Albuterol-Ipratrop 3 mg / 0.5 (3 ml) UD IH SCH ×3 (02:06→13:40)
--- NOTE | 2018-11-27 06:51 | CP.PCM.PN ---
Subjective - Date & Time of Evaluation Date of Evaluation: 11/27/18 Time of Evaluation: 06:20 - Subjective Subjective: Easily awaken, lying in bed, no distress Reason for consultation and follow up: Cardiac evaluation of shortness of breath and uncontrolled hypertension. History of hypertension, COPD,CVA/TIA Seen and examined by me and Dr. Villatoro Objective - Vital Signs/Intake and Output Vital Signs (last 24 hours): Temp Pulse Resp BP Pulse Ox 98.2 F 88 18 158/74 H 94 L 11/26/18 21:47 11/26/18 22:10 11/26/18 21:47 11/26/18 22:10 11/26/18 21:47 Intake and Output: 11/26/18 11/27/18 18:59 06:59 Intake Total 660 180 Balance 660 180 - Medications Medications: Current Medications Acetaminophen (Tylenol 325mg Tab) 650 mg PO Q4H PRN PRN Reason: Pain, Mild (1-3) Last Admin: 11/22/18 23:55 Dose: 650 mg Acetaminophen (Tylenol 325mg Tab) 650 mg PO Q6H PRN PRN Reason: Fever >100.4 F Last Admin: 11/25/18 18:56 Dose: 650 mg Albuterol/Ipratropium (Duoneb 3 Mg/0.5 Mg (3 Ml) Ud) 3 ml IH Q2H PRN PRN Reason: Shortness of Breath Albuterol/Ipratropium (Duoneb 3 Mg/0.5 Mg (3 Ml) Ud) 3 ml IH [id number] [facility] Last Admin: 11/27/18 02:06 Dose: Not Given Aspirin (Ecotrin) 81 mg PO DAILY [facility] Last Admin: 11/26/18 11:43 Dose: 81 mg Diltiazem HCl (Cardizem) 60 mg PO Q8H [facility] Last Admin: 11/27/18 05:40 Dose: Not Given Enoxaparin Sodium (Lovenox) 40 mg SC DAILY [facility]; Protocol Last Admin: 11/26/18 11:42 Dose: 40 mg Famotidine (Pepcid) 40 mg PO [facility] Last Admin: 11/26/18 22:10 Dose: 40 mg Fluoxetine HCl (Prozac) 10 mg PO DAILY [facility] Fluticasone Propionate (Flonase) 1 actuation NS [facility] Last Admin: 11/26/18 22:06 Dose: Not Given Hydralazine HCl (Apresoline) 25 mg PO QID [facility] Last Admin: 11/26/18 22:10 Dose: 25 mg Ceftriaxone Sodium (Rocephin 1 Gram Ivpb) 1 gm in 100 mls @ 100 mls/hr IVPB DAILY [facility]; Protocol Stop: 11/27/18 10:59 Last Admin: 11/26/18 11:48 Dose: 100 mls/hr Zaleplon (Sonata) 5 mg PO HS PRN PRN Reason: Insomnia - Labs Labs: 11/26/18 14:00 11/26/18 14:00 PT 12.4 SECONDS (9.4-12.5) 11/22/18 16:33 INR 1.12 11/22/18 16:33 APTT 34.4 Seconds (26.9-38.3) 11/22/18 16:33 - Constitutional Appears: Non-toxic, No Acute Distress - Head Exam Head Exam: NORMAL INSPECTION, NORMOCEPHALIC - Eye Exam Eye Exam: Normal appearance Pupil Exam: NORMAL ACCOMODATION - ENT Exam ENT Exam: Mucous Membranes Moist - Respiratory Exam Respiratory Exam: Decreased Breath Sounds, Clear to Ausculation Bilateral, NORMAL BREATHING PATTERN - Cardiovascular Exam Cardiovascular Exam: +S1, +S2 - GI/Abdominal Exam GI & Abdominal Exam: Soft, Normal Bowel Sounds - Extremities Exam Extremities Exam: Full ROM, Normal Capillary Refill Additional comments: 1-2+edema - Neurological Exam Neurological Exam: Alert, Awake, Oriented x3 - Psychiatric Exam Psychiatric exam: Normal Affect, Normal Mood - Skin Skin Exam: Dry, Normal Color, Warm Assessment and Plan - Assessment and Plan (Free Text) Assessment: A 68 year old female who came in to the ER due to having trouble walking and bilateral knee pain.History of bilateral DVT, IDDM,obstructive sleep apnea, pneumonia, hyperlipidemia, hypertension,CVA/TIA ,weakness on the left side, walks with walker, morbidly obese, arthritis of knees, degenerative joint disease, depression,history of frequent fall, colitis with partial colectomy, appendectomy.Consult was called due to uncontrolled hypertension. Denies chest pain. Chest X ray unremarkable. Echo was done yesterday and showed LVEF 50-55%, Trace MR/TR/AR/PI RVSP 16 mmHg, no vegetation or thrombus. On antibiotics for UTI. ID on consult. Had stress test yesterday showed no ischemia, normal result. Complaining of bilateral knee pain due to DJD, seen by Dr. Genao. She had Depo-medrol and Marcaine injection of left knee. Cardiac status stable.Controlled blood pressure. Blood cultures no growth after 3 days. Plan: Post injection of left knee with Depo-medrol and Marcaine by Dr. Genao Stress test done showed normal results Denies chest pain Blood pressure controlled Heart rate controlled Cardiac status stable On ASA 81 mg daily,Cardizem 60 mg every 8 hours Apresoline 25 mg QID Continue current treatment Continue current medications Continue IV antibiotics as ordered by ID Will follow up Discharge planning Plan and treatment discussed with Dr. Villatoro
[2018-11-27] MEDS ORDERED: Bupivacaine 0.5% Inj(30mL) IJ ONE (07:13)
[2018-11-27] MEDS ORDERED: MethylPREDNISolone Depo 40 mg/ml Inj IM ONE (07:13)
[2018-11-27 07:52] VITALS: PULSE 85; TEMP 98; O2SAT 93
--- NOTE | 2018-11-27 08:06 | PN ---
DATE: 11/26/2018 SUBJECTIVE: The patient is a 58-year-old female. The patient was seen and examined at the bedside on 11/26/2018, looking comfortable. No fevers. No chills. No hematuria. No hematochezia. No headache or dizziness. No chest pain. No palpitation. The patient went for stress test today. PHYSICAL EXAMINATION: VITAL SIGNS: Blood pressure 160/70, respiratory rate 17, temperature 98.2, oxygen saturation 92% on room air. HEENT: Head is normocephalic, atraumatic. Eyes, PERRLA. Extraocular muscles intact. Conjunctivae clear. Nose patent. Mucous membrane moist. NECK: Supple. No carotid bruits. No JVD or thyromegaly. RESPIRATORY: Fair airflow with bilaterally. HEART: S1 and S2 positive. ABDOMEN: Soft and nontender. No organomegaly. EXTREMITIES: Bilateral edema. NEUROLOGIC: Awake, alert, follow simple commands. MEDICATIONS: Tylenol, DuoNeb, aspirin, Rocephin, Lovenox, Flonase, hydralazine. LABORATORY DATA: We do not have any labs today, but has to do labs. ASSESSMENT AND PLAN: The patient is a 58-year-old lady with multiple medical problems, history of fall, hypertension, chronic obstructive pulmonary disease, sleep apnea syndrome, h/o pneumonia, transient ischemic attack, diabetes mellitus, history of bilateral deep venous thrombosis, arthritis of both knees, seen by Dr. Genao, went for stress test today, gastrointestinal and deep venous thrombosis prophylaxis. As per physical therapy, the patient need subacute rehab, making for subacute rehab, seen by psychiatrist . As per her, the patient has schizophrenia, bipolar. She added Zoloft. Repeat labs. We will followup. Lelo Allan MD M[facility]
[2018-11-27] MEDS: Enoxaparin 40 mg Syringe SC SCH (10:15)
[2018-11-27] MEDS: cefTRIAXone 1 gm 1 GM/100 ML BAG IVPB SCH (10:16)
[2018-11-27 10:20] VITALS: BP 132/78
--- NOTE | 2018-11-27 11:00 | PN ---
DATE: 11/27/2018 PULMONARY PROGRESS NOTE REFERRING PHYSICIAN: Lelo Allan MD SUBJECTIVE: The patient is lying in bed, reports feeling well today, used CPAP machine for a little while last night. No headache, rhinitis, cough, shortness of breath, chest pain, abdominal pain, nausea, vomiting, diarrhea, leg pain or leg swelling reported today. OBJECTIVE GENERAL: No acute distress. VITAL SIGNS: Blood pressure 152/80, pulse 85, temperature 98, and oxygen saturation 93%. HEENT: Moist mucous membranes. Mallampati score of 4. Crowded airway. NECK: Supple. No JVD. Short and thick. RESPIRATORY: Fair airflow bilaterally. CARDIOVASCULAR: S1 and S2 audible. ABDOMEN: Soft and nontender. No distention. No organomegaly. EXTREMITIES: No bilateral lower extremity edema. NEUROLOGIC: Awake, alert and verbal. Follows commands. MEDICATIONS: Reviewed. Tylenol 650 mg every 4 hours p.r.n. for mild pain, Tylenol 650 mg every 6 hours p.r.n. fever greater than 100.4, DuoNeb 3 mL inhalation every 2 hours p.r.n., DuoNeb 3 mL inhalation every 6 hours, aspirin 81 mg daily, Rocephin 1 g daily, Cardizem 60 mg every 8 hours, Lovenox 40 mg subcutaneously daily, Pepcid 40 mg at bedtime, Prozac 10 mg daily, Flonase nasal spray at bedtime, hydralazine 25 mg 4 times a day and Sonata 5 mg at bedtime p.r.n. LABORATORY DATA: Reviewed. Blood cultures preliminary, no growth after 3 days. IMPRESSION AND PLAN: History of falls, hypertension, chronic obstructive pulmonary disease, obstructive sleep apnea syndrome, morbid obesity, history of pneumonia, transient ischemic attack, diabetes mellitus, bilateral deep venous thrombosis history, arthritis of the knees, degenerative joint disease, depression and colitis. Pulmonary point of view, continue inhaled bronchodilators, gastric prophylaxis, deep venous thrombosis prophylaxis. Continue to encourage bilevel positive airway pressure use at bedtime, sleep apnea precaution, head of bed elevated at 45 degrees. The patient is possible discharged to subacute rehab today. The patient will need attended sleep study and full pulmonary function test as outpatient. Fall precaution. This patient is seen and examined with Dr. Nuñez. Discussed assessment and plan as described above. This patient is seen and examined with Blayne Romero, nurse practitioner. Discussed assessment and plan as described above. Thank you for this consult and we will follow with you. Blayne Romero APN Evangelist Nuñez MD MISHA
[2018-11-27] MEDS ORDERED: Influenza Vaccine 60 mcg/0.5 mL SYR (4YR UP) IM ONE (12:53)
[2018-11-27] MEDS ORDERED: Pneumococcal 23-Valent Vaccine IM ONE (12:53)
--- NOTE | 2018-11-27 15:50 | CP.PCM.PCO ---
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
--- NOTE | 2018-11-27 19:19 | CP.PCM.PN ---
Subjective - Date & Time of Evaluation Date of Evaluation: 11/27/18 Time of Evaluation: 14:00 - Subjective Subjective: Infectious Disease Follow Up: November 27, 2018 68 yo female with extensive past medical history of IDDM, MICHAELLE, HTN, bilateral DVTs, COPD DJD, and neck pain presented with slip and fall with complaints of bilateral knee pain, neck pain, and headaches. Currently no fevers or leukocytosis. Urinalysis with signs of a potential UTI. Patient with known non-compliance with mediations as per PMD. Patient has not seen a doctor in several years. Lethargic and difficult to wake last night. More awake and alert. Blood cultures negative at 24 hours. Urine cultures still pending. On Rocephin and received a single dose of Gentamicin. No further fevers since last night but monitoring. No leukocytosis. Low procalcitonin which significantly reduces chances that this is sepsis. Patient is improving overall. Afebrile the past 24 hours. Urine cultures showing 50-100k CFU/ml but multiple organisms. Objective - Vital Signs/Intake and Output Vital Signs (last 24 hours): Temp Pulse Resp BP Pulse Ox 98 F 85 18 132/78 93 L 11/27/18 06:00 11/27/18 06:00 11/27/18 06:00 11/27/18 10:16 11/27/18 06:00 - Labs Labs: 11/26/18 14:00 11/26/18 14:00 PT 12.4 SECONDS (9.4-12.5) 11/22/18 16:33 INR 1.12 11/22/18 16:33 APTT 34.4 Seconds (26.9-38.3) 11/22/18 16:33 - Constitutional Appears: Non-toxic, No Acute Distress, Chronically Ill - Head Exam Head Exam: ATRAUMATIC, NORMOCEPHALIC - Eye Exam Eye Exam: EOMI, PERRL Pupil Exam: NORMAL ACCOMODATION, PERRL - ENT Exam ENT Exam: Mucous Membranes Moist, Normal External Ear Exam, TM's Normal Bilaterally - Neck Exam Neck Exam: Full ROM, Normal Inspection - Respiratory Exam Respiratory Exam: Clear to Ausculation Bilateral, Rales, NORMAL BREATHING PATTERN. absent: Rhonchi, Wheezes - Cardiovascular Exam Cardiovascular Exam: REGULAR RHYTHM, RRR, +S1, +S2 - GI/Abdominal Exam GI & Abdominal Exam: Soft, Normal Bowel Sounds. absent: Distended, Tenderness - Extremities Exam Extremities Exam: Full ROM, Normal Inspection - Neurological Exam Neurological Exam: Alert, Awake, CN II-XII Intact, Oriented x3 - Psychiatric Exam Psychiatric exam: Normal Affect, Normal Mood - Skin Skin Exam: Intact, Normal Color Assessment and Plan - Assessment and Plan (Free Text) Assessment: 68 yo Cauc female who does not follow with doctors and is not compliant with her medications presented with a fall and has been lethargic while in the hospital. Fevers up to 102.3 this afternoon. The patient's urinalysis with signs of UTI. On Rocephin for antibiotic treatment. Supportive care. Awaiting urine cultures. Urine appears to have been sent before Rocephin was given. Blood cultures taken after Rocephin was given. Given a single dose of Gentamicin to the patient yesterday. Chest X-ray negative. Obtain ESR and Procalcitonin. ESR was 33. Procalcitonin was 0.07. Severe Sepsis unlikely with low procalcitonin value. Most likely diagnosis is UTI. Awaiting urine cultures... 50-100k CFU/ml but mixed organisms. The patient's blood cultures are negative at 48 hours. Temperature up to 100.0 F in past 24 hours. Supportive care. Consider up to 7 days of antibiotic therapy. Thank you for allowing me to participate in the care of the patient, we will follow with you.
--- NOTE | 2018-11-27 20:45 | PROCN ---
DATE: 11/27/2018 ORTHOPEDIC PROCEDURE REPORT LOCATION: The patient is in room 563, bed 1. PROCEDURE PERFORMED: Right knee injection with Depo-Medrol and Marcaine for osteoarthritis. DESCRIPTION OF PROCEDURE: I injected the left knee yesterday. Now, we I am going to do the right knee today on 11/27/2018, just extensive osteoarthritis of the right knee. If these shots do not work, she should consider right knee total knee replacement or left knee total knee replacement also. So, we injected the right knee through the anteromedial portal, this would be easier to access the joint and injected the Depo-Medrol and Marcaine. Hopefully, she will feel better as she does feel better from the left knee injection done yesterday. Now, we could continue physical therapy, so she improves her strength and coordination and balance. FINAL DIAGNOSIS: Osteoarthritis, right knee. Kevin Genao DO
== END 2018-11-27 15:31 | DRG 690 ==
LOC: ED 14:16 → ERH 21:55 → 5RNO 11-23 03:16
PROVIDERS: ADMIT Internal Medicine; ATTEND Internal Medicine
PROC: 3E0F7GC Introduction of Other Therapeutic Substance into Respiratory Tract, Via Natural or Artificial Opening (ICD-10-PCS; 2018-11-23)
PROC: 5A09357 Assistance with Respiratory Ventilation, Less than 24 Consecutive Hours, Continuous Positive Airway Pressure (ICD-10-PCS; 2018-11-24)
PROC: 3E0U33Z Introduction of Anti-inflammatory into Joints, Percutaneous Approach (ICD-10-PCS; principal; 2018-11-26)
PROC: 3E0U3BZ Introduction of Anesthetic Agent into Joints, Percutaneous Approach (ICD-10-PCS; 2018-11-26)
PROC: 3E0U33Z Introduction of Anti-inflammatory into Joints, Percutaneous Approach (ICD-10-PCS; 2018-11-27)
PROC: 3E0U3BZ Introduction of Anesthetic Agent into Joints, Percutaneous Approach (ICD-10-PCS; 2018-11-27)
DX: N39.0 Urinary tract infection, site not specified (principal); Z68.43 Body mass index [BMI] 50.0-59.9, adult; M17.0 Bilateral primary osteoarthritis of knee; E11.65 Type 2 diabetes mellitus with hyperglycemia; E66.01 Morbid (severe) obesity due to excess calories; E87.6 Hypokalemia; G47.33 Obstructive sleep apnea (adult) (pediatric); I10 Essential (primary) hypertension; I25.10 Atherosclerotic heart disease of native coronary artery without angina pectoris; J44.9 Chronic obstructive pulmonary disease, unspecified; F32.9 Major depressive disorder, single episode, unspecified; E78.5 Hyperlipidemia, unspecified; Z86.718 Personal history of other venous thrombosis and embolism; Z79.4 Long term (current) use of insulin; Z91.19 Patient's noncompliance with other medical treatment and regimen; Z91.81 History of falling; Z86.73 Personal history of transient ischemic attack (TIA), and cerebral infarction without residual deficits; Z87.01 Personal history of pneumonia (recurrent); Z91.14 Patient's other noncompliance with medication regimen

== ENCOUNTER 2019-01-08 22:47 | Inpatient (IN) | payer MEDICARE ==
[2019-01-08 22:54] VITALS: BMI 48.4
--- NOTE | 2019-01-09 00:11 | ED PDOC ---
Arrival/HPI - General Chief Complaint: Weakness/Neurological Deficit Time Seen by Provider: 01/08/19 23:31 Historian: Patient - History of Present Illness Narrative History of Present Illness (Text): 01/09/19 03:40 68 y/o female with PMH of COPD, DM, CVA with left sided deficits, DM presents to the ED c/o left sided weakness x 1 day. Associated generalized fatigue, sore throat, subjective fever, chills, cough for the last 3 days. Today, pt had an episode where she was having difficulty moving her left side, which has since improved but she remains weaker than usual, according to her. Unsure what time this event occurred. No ASA today. Denies abdominal pain, nausea, vomiting, diarrhea, SOB, chest pain, syncope, palpitations, urinary symptoms, neck pain/stiffness, or any other associated complaints. Past Medical History - Infectious Disease Hx of Infectious Diseases: None - Cardiac Hx Hypertension: Yes - Pulmonary Hx Chronic Obstructive Pulmonary Disease (COPD): Yes - Neurological Hx Neurological Disorder: Yes HX Cerebrovascular Accident: Yes Hx Transient Ischemic Attacks (TIA): Yes - HEENT Hx HEENT Disorder: No - Renal Hx Renal Disorder: No - Endocrine/Metabolic Hx Endocrine Disorders: Yes Hx Diabetes Mellitus Type 2: Yes - Hematological/Oncological Hx Blood Disorders: No - Integumentary Hx Dermatological Disorder: No - Musculoskeletal/Rheumatological Hx Musculoskeletal Disorders: Yes Hx Falls: Yes - Gastrointestinal Hx Gastrointestinal Disorders: Yes Hx Colitis: Yes - Genitourinary/Gynecological Hx Genitourinary Disorders: No - Psychiatric Hx Psychophysiologic Disorder: No Hx Substance Use: No - Surgical History Hx Appendectomy: Yes Other/Comment: colectomy - Anesthesia Hx Anesthesia: No Hx Anesthesia Reactions: No Hx Malignant Hyperthermia: No Family/Social History - Physician Review Nursing Documentation Reviewed: Yes Family/Social History: No Known Family HX Smoking Status: Never Smoked Hx Alcohol Use: No Hx Substance Use: No Allergies/Home Meds Allergies/Adverse Reactions: Allergies codeine Allergy (Verified 11/22/18 14:47) RASH FISH Allergy (Verified 11/22/18 14:47) SWELLING Review of Systems - Review of Systems Constitutional: Normal, Fatigue Eyes: Normal. absent: Vision Changes, Photophobia ENT: Sore Throat, Sinus Congestion. absent: Epistaxis Respiratory: Cough, Sputum. absent: SOB Cardiovascular: Normal. absent: Chest Pain, Palpitations Gastrointestinal: Normal. absent: Abdominal Pain, Nausea, Vomiting Genitourinary Female: Normal. absent: Dysuria, Frequency, Vaginal Bleeding, Vaginal Discharge Musculoskeletal: Normal. absent: Back Pain, Neck Pain Skin: Normal. absent: Rash Neurological: Headache, Focal Weakness, Facial Droop. absent: Dizziness Endocrine: Normal Hemo/Lymphatic: Normal Psychiatric: Normal Physical Exam Vital Signs Reviewed: Yes Vital Signs Temp Pulse Resp BP Pulse Ox 01/08/19 23:10 98.3 F 94 H 18 148/76 95 Temperature: Afebrile Blood Pressure: Normal Pulse: Regular Respiratory Rate: Normal Appearance: Positive for: Well-Appearing, Non-Toxic, Comfortable Pain Distress: None Mental Status: Positive for: Alert and Oriented X 3 - Systems Exam Head: Present: Atraumatic, Normocephalic Pupils: Present: PERRL Extroacular Muscles: Present: EOMI Conjunctiva: Present: Normal Ears: Present: Normal, NORMAL TM Mouth: Present: Moist Mucous Membranes Pharnyx: Present: Normal. No: ERYTHEMA, EXUDATE, TONSILS ENLARGED Neck: Present: Normal Range of Motion. No: Meningeal Signs, MIDLINE TENDERNESS, Paraspinal Tenderness Respiratory/Chest: Present: Clear to Auscultation, Decreased Breath Sounds (bilateral). No: Respiratory Distress, Accessory Muscle Use Cardiovascular: Present: Regular Rate and Rhythm, Normal S1, S2. No: Murmurs Abdomen: Present: Normal Bowel Sounds. No: Tenderness, Distention, Peritoneal Signs, Rebound, Guarding Back: Present: Normal Inspection. No: CVA Tenderness, Midline Tenderness, Paraspinal Tenderness Upper Extremity: Present: Normal Inspection, Normal ROM, NORMAL PULSES, Capillary Refill < 2s. No: Cyanosis, Edema, Temperature Abnormalties Lower Extremity: Present: Normal Inspection, Capillary Refill < 2 s. No: Edema, Temperature Abnormalties Neurological: Present: GCS=15, Other (mild left sided facial asymmetry ). No: Speech Normal (mild dysarthria), Motor Func Grossly Intact (left arm 3/5, left leg 3/5), Normal Sensory Function (decreased to left side) Skin: Present: Warm, Dry, Normal Color. No: Rashes Psychiatric: Present: Alert, Oriented x 3, Normal Insight, Normal Concentration, Normal Affect, Normal Mood Medical Decision Making ED Course and Treatment: Code stroke called secondary to complaints of increased left sided weakness and facial droop 23:53 Spoke with neurology, Dr. Stark who states pt is not a tPA candidate secondary to unknown time of onset. Advises MRI of brain without contrast. Head CT negative 01:16 Bloodwork reviewed, leukocytosis at 16.1; vbg ordered Potassium 3.1, KCl ordered CXR shows right sided pneumonia, read by me and ED attending Dr. Barry. zosyn and vanco ordered secondary to recent hospital stay. Lactate wnl, no indication for code sepsis [address] Allan who accepted patient for inpatient admission with diagnosis of pneumonia and left sided weakness. Asks for consult to Joaquin. Pt made aware of change in disposition. Resting comfortably in stretcher with stable vitals at this time. - Lab Interpretations Lab Results: 01/09/19 00:05 01/09/19 00:05 Lab Results 01/09/19 01:30: pO2 83 H, VBG pH 7.48 H, VBG pCO2 43.0, VBG HCO3 32.0 H, VBG Total CO2 33.3 H, VBG O2 Sat (Calc) 99.4 H, VBG Base Excess 7.6 H, VBG Potassium 2.9 L, Glucose 199 H, Lactate 1.0, FiO2 21.0, Sodium 136.0, Chloride 99.0, Venous Blood Potassium 2.9 L 01/09/19 01:30: Influenza Typ A,B (EIA) Negative for flu a/b, Grp A Beta Strep Ag Negative 01/09/19 00:05: Blood Type O POSITIVE, Antibody Screen Negative, BBK History Checked Patient has bt 01/09/19 00:05: Sodium 135, Potassium 3.1 L, Chloride 95 L, Carbon Dioxide 31, Anion Gap 12, BUN 12, Creatinine 0.7, Est GFR ( Amer) > 60, Est GFR (Non- Af Amer) > 60, Random Glucose 201 H, Calcium 9.1, Total Bilirubin 0.7, AST 21, ALT 15, Alkaline Phosphatase 101, Troponin I 0.04 D, Total Protein 7.4, Albumin 3.8, Globulin 3.6, Albumin/Globulin Ratio 1.1, Triglycerides 50, Cholesterol 152, LDL Cholesterol Direct 82, HDL Cholesterol 46 01/09/19 00:05: PT 13.9 H, INR 1.25, APTT 31.9 03/23/19 00:05: WBC 16.3 H D, RBC 4.98, Hgb 14.5, Hct 43.6, MCV 87.6, MCH 29.1, MCHC 33.3, RDW 13.8, Plt Count 232, MPV 10.3, Neut % (Auto) 87.4 H, Lymph % (Auto) 5.8 L, [place] % (Auto) 6.7 H, Eos % (Auto) 0.0 L, Baso % (Auto) 0.1, Lymph # (Auto) 0.9 L, [place] # (Auto) 1.1 H, Eos # (Auto) 0.0, Baso # (Auto) 0.02, Absolute Neuts (auto) 14.28 H I have reviewed the lab results: Yes - RAD Interpretation Radiology Orders: 01/08/19 23:48 HEAD W/O (CODE STROKE) [CT] Stat CHEST PORTABLE [RAD] Stat 01/08/19 23:54 BRAIN WITHOUT CONTRAST [MRI] Routine - EKG Interpretation EKG Interpretation (Text): 01/09/19 03:49 rate 97; NSR; RBBB; No STEMI, nonspecific ST/T wave changes Interpreted by ED Physician: Yes Type: 12 lead EKG Comparison: Similar to previous EKG NIHSS Scale ([place]) Time Performed: 23:45 - How Severe is the Stoke Baseline Level of Consciousness: 0=Alert LOC to Questions: 0=Both comments correct LOC to commands: 0=Obeys both correctly Best Gaze: 0=Normal Visual: 0=No visual loss Facial: 1=Minor asymmetry Motor Arm - Left: 0=No drift Motor Arm - Right: 0=No drift Motor Leg - Left: 1=Drift before 5 sec Motor Leg - Right: 0=No drift Limb Ataxia: 0=Absent Sensory: 1=Mild to moderate loss Best Language: 0=No aphasia Dysarthia: 1=Mild to moderate slurring Extinction & Inattention (Neglect): 0=Normal, no object Score: 4 Risk Level: Minor Stroke Risk rTPA Inclusion/Exclusion - Refusal of Treatment Patient Refused Treatment: No - Inclusion Criteria for Altepase Patient is 18 years or Older: Yes The Clinical Diagnosis of Ischemic Stroke That is Causing a Potentially Disabling Neurological Deficit: Yes Time of Onset is Well Established to be Less Than 270 Minute Before Treatment Would Begin: No Risk/Benefit Discussed With Patient/Family Member Present: Yes Disposition/Present on Arrival - Present on Arrival Any Indicators Present on Arrival: Yes History of DVT/PE: No History of Uncontrolled Diabetes: Yes Urinary Catheter: No History of Decub. Ulcer: No History Surgical Site Infection Following: None - Disposition Have Diagnosis and Disposition been Completed?: Yes Diagnosis: Pneumonia, Leukocytosis, Left-sided weakness Disposition: HOSPITALIZED Disposition Time: 02:00 Patient Plan: Admission Patient Problems: Current Active Problems Problem Status Onset Left-sided weakness Acute Leukocytosis Acute Pneumonia Acute Condition: STABLE
[2019-01-09 00:41] LABS: INR 1.25; PARTIAL THROMBOPLASTIN TIME 31.9 Seconds (26.9-38.3); PROTHROMBIN TIME 13.9 SECONDS (9.4-12.5)
[2019-01-09 00:42] LABS: BASO # 0.02 K/mm3 (0.0-2.0); BASO % 0.1 % (0.0-3.0); HEMOGLOBIN 14.5 g/dL (12.0-16.0); LYMPH # 0.9 (1.2-3.4); LYMPH % 5.8 % (22.0-35.0); MEAN CELL VOLUME 87.6 fl (80.0-105.0); MEAN CORPUSCULAR HEMOGLOBIN 29.1 pg (25.0-35.0); MEAN CORPUSCULAR HGB CONC 33.3 g/dl (31.0-37.0); MEAN PLATELET VOLUME 10.3 fl (7.0-11.0); MONO # 1.1 (0.1-0.6); MONO % 6.7 % (1.0-6.0); RBC 4.98 10^6/uL (3.5-6.1); RED CELL DISTRIBUTION WIDTH 13.8 % (11.5-14.5); WHITE BLOOD COUNT 16.3 10^3/uL (4.5-11.0)
[2019-01-09 00:45] LABS: LDL CHOLESTEROL 82 mg/dL (0-129)
[2019-01-09 01:10] LABS: ALB/GLOB RATIO 1.1 (1.1-1.8); ALBUMIN 3.8 g/dL (3.0-4.8); ALT/SGPT 15 U/L (7-56); AST/SGOT 21 U/L (14-36); BLOOD UREA NITROGEN 12 mg/dL (7-21); CALCIUM 9.1 mg/dL (8.4-10.5); GFR NON-AFRICAN AMERICAN > 60; HDL CHOLESTEROL 46 mg/dL (29-60); TROPONIN I 0.04 ng/mL
[2019-01-09] MEDS ORDERED: Potassium Chloride 20 mEq ER Tab PO STA (01:13)
[2019-01-09] MEDS ORDERED: Azithromycin 500MG/NS 250ml 500 MG/250 ML BAG IVPB STA (01:14)
[2019-01-09] MEDS ORDERED: cefTRIAXone 1 gm 1 GM/100 ML BAG IVPB STA (01:14)
[2019-01-09] MEDS ORDERED: Sodium Chloride 0.9% 1,000 ML IV STA (01:18)
[2019-01-09] MEDS ORDERED: Vancomycin 1gm in NS 250ml 1 GM/250 ML BAG IVPB STA (01:24)
[2019-01-09] MEDS ORDERED: Piperacillin/Tazobact 3.375 gm 100 ML IVPB STA (01:24)
[2019-01-09 01:40] LABS: VENOUS BLOOD GAS BASE EXCESS 7.6 mmol/L (0.0-2.0); VENOUS BLOOD GAS PO2 83 mm/Hg (30-55); VENOUS BLOOD PH 7.48 (7.32-7.43)
[2019-01-09 02:05] LABS: INFLUENZA A B NEGATIVE FOR FLU A/B (NEGATIVE)
[2019-01-09] MEDS: Cefepime 1gm in NS 100ml 1 GM/100 ML BAG IVPB SCH ×3 (09:16→22:15)
--- NOTE | 2019-01-09 09:41 | CT ---
Date of service: 01/08/2019 PROCEDURE: CT HEAD WITHOUT CONTRAST. HISTORY: Code Stroke COMPARISON: 11/22/2018 TECHNIQUE: Axial computed tomography images were obtained through the head/brain without intravenous contrast. Radiation dose: Total exam DLP = 1046.01 mGy-cm. This CT exam was performed using one or more of the following dose reduction techniques: Automated exposure control, adjustment of the mA and/or kV according to patient size, and/or use of iterative reconstruction technique. FINDINGS: HEMORRHAGE: No intracranial hemorrhage. BRAIN: There are mild chronic microangiopathic changes. There is no mass, mass effect or abnormal extra-axial fluid collection. There is no territorial infarction. The midline sagittal structures are normal. VENTRICLES: The ventricles are normal in size, shape and configuration. CALVARIUM: There is no calvarial fracture or extracranial soft tissue swelling. PARANASAL SINUSES: Predominantly clear. MASTOID AIR CELLS: Predominantly clear. OTHER FINDINGS: None. IMPRESSION: No acute intracranial abnormality. If there is a persistent focal neurologic deficit and an ongoing clinical concern for acute infarction, an MRI of the brain without intravenous contrast would be a more sensitive modality for evaluation of hyperacute/acute ischemic infarction. A preliminary report was provided by [email or web address].
[2019-01-09] MEDS ORDERED: Albuterol-Ipratrop 3 mg / 0.5 (3 ml) UD IH PRN (10:05)
[2019-01-09] MEDS ORDERED: Enoxaparin 40 mg Syringe SC SCH (10:30)
--- NOTE | 2019-01-09 13:14 | RAD ---
Date of service: 01/09/2019 HISTORY: Code Stroke COMPARISON: 11/22/2018. FINDINGS: LUNGS: The lungs are well inflated and clear. PLEURA: No pleural effusions or pneumothorax. CARDIOVASCULAR: The heart is normal in size. No aortic atherosclerotic calcifications present. OSSEOUS STRUCTURES: Within normal limits for the patient's age. VISUALIZED UPPER ABDOMEN: Normal. OTHER FINDINGS: None. IMPRESSION: No active pulmonary disease.
--- NOTE | 2019-01-09 15:47 | CP.PCM.CON ---
History of Present Illness - History of Present Illness History of Present Illness: Neurology consult dictated. Patient is stable, with no new neurological deficits. A/p: Patient with most likely recrudescence of initial stroke, no new deficits seen. DR. Stark Neurology Past Patient History - Infectious Disease Hx of Infectious Diseases: None - Past Social History Smoking Status: Never Smoked - CARDIAC Hx Cardiac Disorders: Yes Hx Congestive Heart Failure: Yes Hx Hypertension: Yes Hx Peripheral Edema: Yes - PULMONARY Hx Respiratory Disorders: Yes Hx Chronic Obstructive Pulmonary Disease (COPD): Yes Hx Pneumonia: Yes - NEUROLOGICAL Hx Neurological Disorder: Yes Hx Dizziness: Yes Hx Transient Ischemic Attacks (TIA): Yes - HEENT Hx HEENT Problems: Yes (glasses) - RENAL Hx Chronic Kidney Disease: No - ENDOCRINE/METABOLIC Hx Endocrine Disorders: Yes Hx Diabetes Mellitus Type 2: Yes - HEMATOLOGICAL/ONCOLOGICAL Hx Blood Disorders: No - INTEGUMENTARY Hx Dermatological Problems: No Hx Basil Cell: No Hx Eczema: No Hx Melanoma: No Hx Psoriasis: No Hx Squamous Cell: No - MUSCULOSKELETAL/RHEUMATOLOGICAL Hx Musculoskeletal Disorders: Yes Hx Arthritis: Yes Hx Falls: Yes Hx Unsteady Gait: Yes - GASTROINTESTINAL Hx Gastrointestinal Disorders: Yes - GENITOURINARY/GYNECOLOGICAL Hx Genitourinary Disorders: Yes Hx Urinary Tract Infection: Yes - PSYCHIATRIC Hx Psychophysiologic Disorder: Yes Hx Anxiety: Yes Hx Depression: Yes Hx Substance Use: No - SURGICAL HISTORY Hx Surgeries: Yes Hx Appendectomy: Yes - ANESTHESIA Hx Anesthesia: No Hx Anesthesia Reactions: No Hx Malignant Hyperthermia: No Meds Allergies/Adverse Reactions: Allergies Allergy/AdvReac Type Severity Reaction Status Date / Time codeine Allergy RASH Verified 11/22/18 14:47 FISH Allergy SWELLING Verified 11/22/18 14:47 - Medications Medications: Current Medications Albuterol/Ipratropium (Duoneb 3 Mg/0.5 Mg (3 Ml) Ud) 3 ml IH Q4H PRN PRN Reason: Shortness of Breath Arformoterol Tartrate (Brovana) 15 mcg IH [id number] [facility] Aspirin (Ecotrin) 81 mg PO DAILY [facility] Budesonide (Pulmicort Respules) 0.5 mg IH [id number] [facility] Diltiazem HCl (Cardizem) 60 mg PO Q8H [facility] Last Admin: 01/09/19 11:03 Dose: Not Given Enoxaparin Sodium (Lovenox) 30 mg SC DAILY [facility]; Protocol Famotidine (Pepcid) 40 mg PO HS [facility] Fluoxetine HCl (Prozac) 10 mg PO DAILY [facility] Fluticasone Propionate (Flonase) 1 actuation NS HS [facility] Hydralazine HCl (Apresoline) 25 mg PO Q6 [facility] Last Admin: 01/09/19 13:06 Dose: 25 mg Doxycycline Hyclate 100 mg/ (Sodium Chloride) 100 mls @ 100 mls/hr IVPB Q12 [facility]; Protocol Stop: 01/18/19 10:01 Last Admin: 01/09/19 10:18 Dose: 100 mls/hr Cefepime HCl (Maxipime 1gm) 1 gm in 100 mls @ 100 mls/hr IVPB Q8 [facility]; Protocol Stop: 01/18/19 08:29 Last Admin: 01/09/19 15:00 Dose: 100 mls/hr Insulin Human Regular (Humulin R Low) 0 units SC ACHS [facility]; Protocol Metformin HCl (Glucophage) 500 mg PO BID [facility] Results - Vital Signs Recent Vital Signs: Last Vital Signs Temp 97.8 F 01/09/19 12:00 Pulse 76 01/09/19 13:06 Resp 17 01/09/19 12:00 BP 163/72 H 01/09/19 13:06 Pulse Ox 96 01/09/19 10:56 - Labs Result Diagrams: 01/09/19 00:05 01/09/19 00:05 Labs: Laboratory Results - last 24 hr 01/09/19 01/09/19 01/09/19 00:05 00:05 00:05 WBC 16.3 H D RBC 4.98 Hgb 14.5 Hct 43.6 MCV 87.6 MCH 29.1 MCHC 33.3 RDW 13.8 Plt Count 232 MPV 10.3 Neut % (Auto) 87.4 H Lymph % (Auto) 5.8 L [place] % (Auto) 6.7 H Eos % (Auto) 0.0 L Baso % (Auto) 0.1 Lymph # (Auto) 0.9 L [place] # (Auto) 1.1 H Eos # (Auto) 0.0 Baso # (Auto) 0.02 Absolute Neuts (auto) 14.28 H PT 13.9 H INR 1.25 APTT 31.9 pO2 VBG pH VBG pCO2 VBG HCO3 VBG Total CO2 VBG O2 Sat (Calc) VBG Base Excess VBG Potassium Glucose Lactate FiO2 Sodium 135 Potassium 3.1 L Chloride 95 L Carbon Dioxide 31 Anion Gap 12 BUN 12 Creatinine 0.7 Est GFR ( Amer) > 60 Est GFR (Non-Af Amer) > 60 POC Glucose (mg/dL) Random Glucose 201 H Calcium 9.1 Total Bilirubin 0.7 AST 21 ALT 15 Alkaline Phosphatase 101 Troponin I 0.04 D Total Protein 7.4 Albumin 3.8 Globulin 3.6 Albumin/Globulin Ratio 1.1 Triglycerides 50 Cholesterol 152 LDL Cholesterol Direct 82 HDL Cholesterol 46 Procalcitonin Venous Blood Potassium Influenza Typ A,B (EIA) Grp A Beta Strep Ag Blood Type Antibody Screen BBK History Checked 01/09/19 01/09/19 01/09/19 00:05 01:30 01:30 WBC RBC Hgb Hct MCV MCH MCHC RDW Plt Count MPV Neut % (Auto) Lymph % (Auto) [place] % (Auto) Eos % (Auto) Baso % (Auto) Lymph # (Auto) [place] # (Auto) Eos # (Auto) Baso # (Auto) Absolute Neuts (auto) PT INR APTT pO2 83 H VBG pH 7.48 H VBG pCO2 43.0 VBG HCO3 32.0 H VBG Total CO2 33.3 H VBG O2 Sat (Calc) 99.4 H VBG Base Excess 7.6 H VBG Potassium 2.9 L Glucose 199 H Lactate 1.0 FiO2 21.0 Sodium 136.0 Potassium Chloride 99.0 Carbon Dioxide Anion Gap BUN Creatinine Est GFR ( Amer) Est GFR (Non-Af Amer) POC Glucose (mg/dL) Random Glucose Calcium Total Bilirubin AST ALT Alkaline Phosphatase Troponin I Total Protein Albumin Globulin Albumin/Globulin Ratio Triglycerides Cholesterol LDL Cholesterol Direct HDL Cholesterol Procalcitonin Venous Blood Potassium 2.9 L Influenza Typ A,B (EIA) Negative for flu a/b Grp A Beta Strep Ag Negative Blood Type O POSITIVE Antibody Screen Negative BBK History Checked Patient has bt 01/09/19 01/09/19 08:30 11:45 WBC RBC Hgb Hct MCV MCH MCHC RDW Plt Count MPV Neut % (Auto) Lymph % (Auto) [place] % (Auto) Eos % (Auto) Baso % (Auto) Lymph # (Auto) [place] # (Auto) Eos # (Auto) Baso # (Auto) Absolute Neuts (auto) PT INR APTT pO2 VBG pH VBG pCO2 VBG HCO3 VBG Total CO2 VBG O2 Sat (Calc) VBG Base Excess VBG Potassium Glucose Lactate FiO2 Sodium Potassium Chloride Carbon Dioxide Anion Gap BUN Creatinine Est GFR ( Amer) Est GFR (Non-Af Amer) POC Glucose (mg/dL) 128 H Random Glucose Calcium Total Bilirubin AST ALT Alkaline Phosphatase Troponin I Total Protein Albumin Globulin Albumin/Globulin Ratio Triglycerides Cholesterol LDL Cholesterol Direct HDL Cholesterol Procalcitonin 0.16 L Venous Blood Potassium Influenza Typ A,B (EIA) Grp A Beta Strep Ag Blood Type Antibody Screen BBK History Checked
[2019-01-09] MEDS: Insulin Reg-LOW-Coverage SC SCH ×2 (17:23→22:00)
[2019-01-09] MEDS: Arformoterol 15 mcg/2 ml Inh Sol IH SCH (19:56)
[2019-01-09] MEDS: Budesonide 0.5 mg/2 ml Inhal Susp UD IH SCH (19:56)
[2019-01-09] MEDS: Fluticasone Nasal 50 mcg/Spray NS SCH (22:00)
--- NOTE | 2019-01-09 23:09 | CON ---
DATE: 01/09/2019 LOCATION: The patient is in room 271. CHIEF COMPLAINT: Weakness times several days. HISTORY OF PRESENT ILLNESS: This is a 68-year-old female with chronic obstructive lung disease, cerebrovascular accident with left-sided deficit, and diabetes mellitus, who was admitted with weakness and fatigue, fevers and chills, and cough for 3 days. No abdominal pian, diarrhea, or constipation. REVIEW OF SYSTEMS: Reveals a 12-point review systems is performed. PAST MEDICAL HISTORY: Significant for hypertension, chronic obstructive lung disease, diabetes mellitus, and cerebrovascular accident with left-sided weakness. PAST SURGICAL HISTORY: Significant for colectomy and appendectomy. ALLERGIES: THE PATIENT IS ALLERGIC TO CODEINE AND FISH ALLERGY. NO ALLERGIC TO ANTIBIOTICS. MEDICATIONS AT HOME: Includes the patient to be on Pepcid, Prozac, Lovenox, and aspirin. The patient was recently in the hospital and her chest pain was in November. PHYSICAL EXAMINATION: VITAL SIGNS: The patient was seen earlier in the emergency room with a temperature of 99.9, T-max was 101, heart rate of 104, respiratory rate of 18, and blood pressure is 163/70. HEENT: Unremarkable. NECK: Supple. LUNGS: Have decreased breath sounds. HEART: Normal S1 and S2. ABDOMEN: Soft and nontender. No rebound. No guarding. LABORATORY DATA: Reveals a white count of 16,300, hemoglobin of 14, and platelets of 232. Chemistries reveal a BUN of 12 and creatinine of 0.7. Procalcitonin is 0.16 and hemoglobin A1c is 8.3. Group B strep is negative. Influenza is negative. The patient had a chest x-ray, which is negative. The CAT scan of the head, no acute abnormalities and consultation is reviewed. Emergency room chart is reviewed. ASSESSMENT AND PLAN: This is a 68-year-old female with chronic obstructive pulmonary disease, cerebrovascular accident, diabetes mellitus, hypertension, and admitted with sepsis which might be secondary to healthcare-associated pneumonia. Blood cultures have been ordered and sputum cultures have been ordered. Urine Legionella has been ordered and the patient's procalcitonin is 0.16. The patient was started on cefepime and doxycycline, pending panculture results. We will order a CAT scan of the chest without contrast to rule out infiltrate. Since clinically she sounds like she has a pneumonia; however, the x-rays reported to be negative. We will follow with you and we will check on the MRI of the head. Emmanuel Daley MD
--- NOTE | 2019-01-09 23:56 | CARD ---
APPROVED REPORT Date of service: 01/09/2019 EKG Measurement Heart [id number] <Conclusion> Sinus rhythm with premature atrial complexes Right bundle branch block NDSTT abnormalities Abnormal ECG
[2019-01-10 00:27] LABS: IRON < 10 ug/dL (45-180)
[2019-01-10 01:50] LABS: TOTAL IRON BINDING CAPACITY 230 ug/dL (265-497)
[2019-01-10 01:52] LABS: % IRON SATURATION 20 % (20-55)
--- NOTE | 2019-01-10 02:01 | HP ---
DATE OF EXAM: 01/09/2019 CHIEF COMPLAINT: Weakness, neurological deficit. HISTORY OF PRESENT ILLNESS: Ms. Mara Walker is a 68-year-old female with past medical history of COPD, CVA with left-sided deficiency, diabetes mellitus, came to the emergency room with complaining of left-sided weakness from generalized fatigue, sore throat, upper respiratory tract infection, feverish feeling, chilled, and cough for last 3 days. Today, she had episodes where she was having difficulty moving her left side, which made her to come to the emergency room. The patient is very noncompliant for medication. According to her, she cannot pay for medications that is why she was not taking, but trying our best to be compliant. Denies abdominal pain, nausea, or vomiting. No chest pain, seems to be palpitation . We admitted the patient to give antibiotics. ID and Neurology is on the case. PAST MEDICAL HISTORY: COPD, TIA, diabetes mellitus type 2, falls, colitis, appendectomy, and colectomy. FAMILY HISTORY: Father and mother, noncontributory. HABITS: Never smoked. No drugs. No ethanol. ALLERGIES: THE PATIENT IS ALLERGIC TO CODEINE AND FISH. REVIEW OF SYSTEMS: The patient was seen and examined at the bedside, looking comfortable. At this moment, no fever and no chills. No hematuria. No hematochezia. No headache. No dizziness. Still feeling of sore throat. No vomiting. No abdominal pain. No dysuria. No vaginal bleeding. No vaginal discharge. No back pain, neck pain, facial pain, headache, facial droop, or dizziness. PHYSICAL EXAMINATION: VITAL SIGNS: Temperature 98.3, pulse 94, respiratory rate 18, blood pressure 148/72, and oxygen saturation 95%. HEENT: Head is normocephalic and atraumatic. Eyes; PERRLA. Extraocular muscles intact. Conjunctivae clear. Nose patent. Mucous membranes moist. NECK: Supple. No carotid bruits. No JVD or thyromegaly. CHEST: Bilaterally symmetrical. HEART: S1 and S2 positive. LUNGS: Clear to auscultation. ABDOMEN: Soft. Bowel sounds present. No organomegaly. EXTREMITIES: No edema. No cyanosis. NEUROLOGIC: The patient is awake and alert. Moving all four extremities. No focal deficits. LABORATORY DATA: White blood cells 16.3, hemoglobin 14.5, hematocrit 43.6, and platelets 232. Sodium 135, potassium 3.1, BUN 12, creatinine 0.7, and glucose 201. ASSESSMENT AND PLAN: Ms. Mara Walker is a 68-year-old female with leukocytosis, hypokalemia, hyperchloremia, hyperglycemia, obesity, noncompliant, history of hypertension, chronic obstructive pulmonary disease, diabetes mellitus, cerebrovascular accident with left-sided weakness, admitted with sepsis which might be secondary to healthcare-associated pneumonia. Blood cultures have been ordered and sputum cultures have been ordered. Urine Legionella has been ordered and the patient's procalcitonin level is 0.16. Started on cefepime and doxycycline depending on the cultures. CAT scan of the chest done without contrast to rule out infarction. Clinically, she sounds like she has pneumonia; however, the chest x-ray is reported to be negative. Neurology, Dr. Braydon Stark is on the case. CAT scan of the head is done. According to Neurology, there is no new deficit seen. Plan is to continue present treatment. Repeat labs. Gastrointestinal and deep venous thrombosis prophylaxes. We will follow up. Lelo Allan MD MISHA
[2019-01-10] MEDS: Cefepime 1gm in NS 100ml 1 GM/100 ML BAG IVPB SCH ×3 (06:18→22:04)
[2019-01-10] MEDS: Budesonide 0.5 mg/2 ml Inhal Susp UD IH SCH ×2 (07:34→19:53)
[2019-01-10] MEDS: Arformoterol 15 mcg/2 ml Inh Sol IH SCH ×2 (07:34→19:53)
[2019-01-10 07:40] LABS: BASO # 0.03 K/mm3 (0.0-2.0); BASO % 0.2 % (0.0-3.0); EOS # 0.3 (0.0-0.7); EOS % 1.9 % (1.5-5.0); HEMOGLOBIN 12.1 g/dL (12.0-16.0); LYMPH # 1.7 (1.2-3.4); LYMPH % 12.3 % (22.0-35.0); MEAN CELL VOLUME 88.9 fl (80.0-105.0); MEAN CORPUSCULAR HEMOGLOBIN 28.5 pg (25.0-35.0); MEAN CORPUSCULAR HGB CONC 32.1 g/dl (31.0-37.0); MEAN PLATELET VOLUME 10.4 fl (7.0-11.0); MONO # 1.1 (0.1-0.6); MONO % 7.5 % (1.0-6.0); RBC 4.24 10^6/uL (3.5-6.1); RED CELL DISTRIBUTION WIDTH 14.2 % (11.5-14.5); WHITE BLOOD COUNT 14.1 10^3/uL (4.5-11.0)
[2019-01-10 07:59] LABS: ALBUMIN 3.1 g/dL (3.0-4.8); ALT/SGPT 25 U/L (7-56); AST/SGOT 34 U/L (14-36); BLOOD UREA NITROGEN 16 mg/dL (7-21); CALCIUM 8.6 mg/dL (8.4-10.5); GFR NON-AFRICAN AMERICAN > 60
[2019-01-10] MEDS: Insulin Reg-LOW-Coverage SC SCH ×4 (08:27→22:15)
[2019-01-10] MEDS ORDERED: Potassium Chloride 20 mEq ER Tab PO ONE (08:30)
[2019-01-10] MEDS: Enoxaparin 30 mg Syringe SC SCH (09:53)
[2019-01-10] MEDS ORDERED: Non Formulary Medication (Ceftriaxone 1 Gm 1 GM) IVPB SCH (10:00)
--- NOTE | 2019-01-10 10:52 | PN ---
DATE: 01/10/2019 SUBJECTIVE: The patient is in bed in no acute distress, nontoxic. PHYSICAL EXAMINATION VITAL SIGNS: On exam, temperature is 99, T-max is 101, blood pressure is 175/80, respiratory rate of 20 and heart rate of 91. HEENT: Unremarkable. NECK: Supple. LUNGS: Have decreased breath sounds. HEART: Normal S1 and S2. ABDOMEN: Soft. LABORATORY EXAMINATION: Reveals a white count, it is down to 14,000. Chemistries are noted with a BUN 16 and creatinine of 0.6. Microbiology reveals the blood cultures are negative and urine Legionella is pending. MRSA screen is pending. Sputum cultures are pending. Throat cultures are pending. Review of orders reveals the patient to be on doxycycline and cefepime. ASSESSMENT AND PLAN: This is a 68-year-old female with chronic obstructive lung disease, cerebrovascular accident, diabetes mellitus, hypertension, admitted with sepsis secondary to healthcare-associated pneumonia and on cefepime and doxycycline on day #2 pending workup. Initial workup including the CAT scan of the chest and cultures and serology results pending. Dr. Allan's history and physical examination from yesterday is reviewed. Emmanuel Daley MD
--- NOTE | 2019-01-10 12:28 | MRI ---
Date of service: 01/10/2019 PROCEDURE: MRI BRAIN WITHOUT CONTRAST HISTORY: code stroke, r/o CVA COMPARISON: CT head without contrast from 01/08/2019 TECHNIQUE: Multiplanar, multisequence MR images of the brain were obtained without intravenous contrast enhancement. FINDINGS: HEMORRHAGE: None DWI: No evidence of an acute or early subacute infarction. BRAIN PARENCHYMA: There are mild chronic microangiopathic changes. There is a chronic lacunar infarction in the right thalamus. There is no mass, mass effect or abnormal extra-axial fluid collection. There is no territorial infarction. There is an empty sella. VENTRICLES: There is mild age-related global parenchymal volume loss and proportionate enlargement of the ventricles and cortical sulci. CRANIUM: There is normal bone marrow signal pattern. ORBITS: Grossly unremarkable. PARANASAL SINUSES/MASTOIDS: Clear VASCULAR SYSTEM: There are normal signal voids in the larger intracranial arteries. OTHER FINDINGS: None. IMPRESSION: 1. No acute intracranial abnormality. 2. Mild chronic microangiopathic changes and mild age-related global parenchymal volume loss
[2019-01-10 12:51] LABS: FOLATE 7.3 ng/mL
--- NOTE | 2019-01-10 12:55 | PN ---
DATE: 01/10/2019 REFERRING PHYSICIAN: Lelo Allan MD. SUBJECTIVE: The patient seen lying in bed, no acute distress. Reports wearing BiPAP machine for a couple of hours last night. Still has some shortness of breath and exertion from coughing. No headache, rhinitis, chest pain, abdominal pain, nausea, vomiting, diarrhea, leg pain reported. OBJECTIVE: VITAL SIGNS: Blood pressure 135/70, pulse 91, temperature 99.2, oxygen saturation 96%. GENERAL: No acute distress. HEENT: Moist mucous membranes. Mallampati score of 4. Crowded airway. NECK: Supple. No JVD. RESPIRATORY: Fair airflow bilaterally, decreased at the bases. CARDIOVASCULAR: S1 and S2. ABDOMEN: Soft and nontender. No distention. EXTREMITIES: No bilateral lower extremity edema. NEUROLOGIC: Awake, alert, verbal. Following commands. MEDICATIONS: Reviewed. Duoneb 3 mL inhalation every 4 hours p.r.n., Brovana 15 mcg every 12 hours, aspirin 81 mg a day, Pulmicort 0.5 mg inhalation every 1 2 hours, cefepime 1 g every 8 hours, Cardizem 50 mg every 8 hours, doxycycline 100 mg every 12 hours, Lovenox 30 mg subcu daily, Pepcid 40 mg at bedtime, Prozac 10 mg daily, Flonase nasal spray at bedtime, hydralazine 25 mg every 6 hours, Humulin R sliding scale a.c. and at bedtime, metformin 500 mg twice a day. LABORATORY DATA: Reviewed. WBC 14.1, RBC 4.2, hemoglobin 12.1, hematocrit 37.7, platelets 212. Sodium 138, potassium 3.3, chloride 101, carbon dioxide 32, anion gap 8, BUN 16, creatinine 0.6, GFR greater than 60, POC glucose 132, random glucose 131, calcium 8.6. Iron less than 10, TIBC 230, percent saturation 28, total bilirubin 0.4, AST 34, ALT 25, alkaline phosphatase 88, total protein 6.2, albumin 3.1, globulin 3.1, albumin-globulin ratio 1. TSH 0.7. Blood cultures preliminary no growth after 24 hours. Chest x-ray shows no active pulmonary disease. IMPRESSION AND PLAN: Chronic obstructive lung disease, cerebrovascular accident, diabetes mellitus, hypertension, admitted with sepsis secondary to healthcare-associated pneumonia, currently on intravenous antibiotics. Continue inhaled bronchodilators, gastric prophylaxis, deep venous thrombosis prophylaxis. The patient also has diagnosis of sleep apnea. Continue bilevel positive airway pressure use at bedtime. Sleep apnea precaution. Head of bed elevated 45 degrees. Continue Neurology followup. The patient may need MRA or CTA to assure that there is no poor perfusion to the brain. The patient noted with hypokalemia. This morning, we will give potassium 40 mEq one-time dose. Repeat labs in the morning. Fall precautions. The patient was seen and examined with Dr. Nuñez. Discussed assessment and plan as described above. This patient was seen and examined with Blayne Romero, nurse practitioner. Discussed assessment and plan as described above. Thank you for this consult. We will follow with you. Blayne Romero APN Evangelist Nuñez MD
[2019-01-10] MEDS: Nystatin 100,000 Units/gm Topical Pow(15 gm) TOP SCH (17:42)
[2019-01-10] MEDS: Fluticasone Nasal 50 mcg/Spray NS SCH (22:03)
[2019-01-11] MEDS: Cefepime 1gm in NS 100ml 1 GM/100 ML BAG IVPB SCH ×2 (05:54→14:24)
[2019-01-11 07:27] LABS: BLOOD UREA NITROGEN 20 mg/dL (7-21); CALCIUM 8.6 mg/dL (8.4-10.5); GFR NON-AFRICAN AMERICAN > 60
[2019-01-11] MEDS: Budesonide 0.5 mg/2 ml Inhal Susp UD IH SCH ×2 (08:01→21:04)
[2019-01-11] MEDS: Arformoterol 15 mcg/2 ml Inh Sol IH SCH ×2 (08:01→21:04)
--- NOTE | 2019-01-11 08:09 | PN ---
DATE: 01/10/2019 SUBJECTIVE: The patient is a 68-year-old male. The patient was seen and examined at the bedside on 01/10/2019. Looking comfortable. No fever. No chills. No hematuria. No hematochezia. No headache. No dizziness. No chest pain. No palpitation. Finally, she went for MRI of the head after light sedation. PHYSICAL EXAMINATION VITAL SIGNS: Blood pressure 136/70, pulse 91, respiratory rate 18, temperature 98.2. HEENT: Head; normocephalic and atraumatic. Eyes; PERRLA, extraocular muscles are intact, conjunctivae clear. Nose patent. Mucous membranes moist. NECK: Supple. No carotid bruits, JVD or thyromegaly. CHEST: Bilaterally symmetrical. HEART: S1 and S2 positive. LUNGS: Clear to auscultation. ABDOMEN: Soft. Bowel sounds present. No organomegaly. EXTREMITIES: No edema. No cyanosis. NEUROLOGICAL: The patient is awake and alert. Moving all four extremities. No focal deficits. MEDICATIONS: DuoNeb, Brovana, Pulmicort, cefepime, Cardizem, doxycycline, Lovenox, Pepcid, Prozac, Flonase, hydralazine, insulin. LABORATORY DATA: White blood cells 14.1, hemoglobin 12.1, hematocrit 37.7, and platelets 212. Sodium 138, potassium 3.3, BUN 16, creatinine 0.6, GFR more than 60, glucose 132. ASSESSMENT AND PLAN: Ms. Mara Walker is a 68-year-old female with history of chronic obstructive lung disease, obesity, diabetes mellitus, hypertension, admission with sepsis secondary to healthcare-associated pneumonia. Pulmonary is on the case, currently on intravenous antibiotics, inhaled bronchodilators, gastric and deep venous thrombosis prophylaxis, out of bed, physical therapy. MRI is done. According to that, no acute intracranial abnormality, mild chronic microangiopathic changes and mild age-related global parenchymal volume loss. Pulmonary and Infectious Disease are on the case. Nursing is on the case also. Lots of family discussion done with the patient and patient's nursing staff. Repeat labs. We will follow up. Lelo Allan MD MTDD
[2019-01-11] MEDS: Insulin Reg-LOW-Coverage SC SCH ×4 (08:26→22:25)
--- NOTE | 2019-01-11 08:50 | CON ---
DATE: 01/09/2019 NEUROLOGY CONSULTATION Neurology consult called by Dr. Lelo Allan. HISTORY OF PRESENT ILLNESS: This is a 60-year-old woman with a past medical history of COPD, stroke with left sided deficit, diabetes mellitus type 2, who presented to the emergency room on 01/09/2019 at approximately 2 o'clock in the morning with left-sided weakness that was going on for one day. The patient reports that she has generalized fatigue, sore throat, fevers, chills, and cough from three days prior. Yesterday, the patient had an episode where she was having increasing difficulty moving her left side which has improved but is weaker than usual. The patient was called code stroke, was deemed not to be a tPA candidate because of the long onset of symptoms. We are also not sure when this event started. The patient did not take any aspirin yesterday. Today the patient reported that whenever she gets a fever lately she develops more weakness on her left side. She was able to move her left arm and left side properly, the way she normally does, and felt that the weakness had resolved. REVIEW OF SYSTEMS: Today significant for malaise, headache, chills, fever and some mild nausea. PAST MEDICAL HISTORY: COPD, CVA, diabetes. PAST SURGICAL HISTORY: None. FAMILY AND SOCIAL HISTORY: The patient lives in a jail. No smoking, no alcohol, no IVDA. ALLERGIES: CODEINE AND FISH. PHYSICAL EXAMINATION: GENERAL: The patient is alert and oriented x3. VITAL SIGNS: Temperature 98.3, blood pressure 140/76, pulse oximetry 95. HEENT: Pupils are equal, round, and reactive to light. EOMI. Visual cardozo full. NEUROLOGIC: Cranial nerves II to XII normal. Speech is fluent. She is tired but she is able to follow all commands. She lifts up both arms well. The left side is a little bit weak at 4+/5. The left leg she states she cannot move at all and that is new. There are no sensory deficits. Intact to fine touch, pin position, vibration, upper limb and lower limb bilaterally. Gait was not tested per the patient's request. Reflexes are +1 upper limb and lower limb bilaterally. LABORATORY DATA: White count is 16.3, neutrophils 81.4 indicating left shift 6.7. Chemistry: Sodium 135, potassium 3.1, chloride 95, glucose was 142 and 128 when she came in. Random glucose was 201, kerr she came in. Hemoglobin A1c is 8.3. Serology was negative for flu. CAT scan of the head was done which showed the following; no acute stroke or hemorrhage. IMPRESSION: This is a 60-year-old woman with possible new onset stroke to the right middle cerebral artery or to the recrudescence of prior stroke symptoms. She does have several risk factors for stroke. RECOMMENDATIONS: I would recommend to: 1. Treat infection. 2. Aspirin. 3. Keep blood pressure elevated. 4. PT, SGOT 5. Lipid profile if one was not done yet. Our team will follow. Thank you for this interesting consult. Braydon Stark MD
--- NOTE | 2019-01-11 08:51 | CON ---
DATE: 01/09/2019 PULMONARY CONSULT NOTE REFERRING PHYSICIAN: Dr. Lelo Allan. REASON FOR CONSULT: Pneumonia, cough and shortness of breath. HISTORY OF PRESENT ILLNESS: This is a 68-year-old female known to us from previous admission with past medical history significant for bilateral deep venous thrombosis, diabetes mellitus, hypertension, obstructive sleep apnea syndrome, arthritis of knee and COPD. The patient presented to emergency room complaining of left-sided weakness for one day. The patient also report having generalized fatigue and sore throat, subjective fever, chills, cough for about three days. Upon admission to the ER, the patient reported issues having difficulty moving her left-side which has improved, but still remains weaker than usual. The patient does have history of CVA with left-sided deficits. Today, the patient seen lying in bed, states that she does have cough, shortness of breath and having sore throat. Stated that she does have left-sided weakness and at times left-sided weakness worsens, but then gets better. PAST MEDICAL HISTORY: Hypertension, COPD, obstructive sleep apnea syndrome, morbid obesity, history of pneumonia, TIA, diabetes mellitus, history of falls, colitis, appendectomy, bilateral DVTs, arthritis of the knee, degenerative joint disease and depression. FAMILY HISTORY: No cardiopulmonary disease reported. SOCIAL HISTORY: Nonsmoker. No EtOH abuse. No illicit drug use. ALLERGIES: CODEINE AND FISH. MEDICATIONS: Reviewed. Cefepime 1 g every 8 hours, doxycycline 100 mg every 12 hours. Home medications; hydralazine 25 mg four times a day, Cardizem 60 mg every 8 hours, ceftriaxone 1 g daily, Sonata 5 mg at bedtime p.r.n. Flonase nasal spray at bedtime, Pepcid 40 mg at bedtime, Prozac 10 mg daily, Lovenox 40 mg subcutaneous daily, aspirin 81 mg daily and DuoNeb 3 mL inhalation every 6 hours p.r.n. REVIEW OF SYSTEMS: No headache, rhinitis, chest pain, abdominal pain, nausea, vomiting, diarrhea or leg pain reported. The patient does report having cough, shortness of breath, sore throat, worsening left-sided weakness which has improved some. PHYSICAL EXAMINATION: GENERAL: No acute distress. VITAL SIGNS: Blood pressure 143/70, pulse 87, temperature 101 and oxygen saturation 99% on room air. HEENT: Moist mucous membranes. Mallampati score of 4. Crowded airway. NECK: Supple. No JVD. Short and thick. RESPIRATORY: Rhonchi bilaterally. Decreased breath sounds. CARDIOVASCULAR: S1 and S2. ABDOMEN: Soft and nontender. No distention. No organomegaly. EXTREMITIES: No bilateral lower extremity edema. NEUROLOGIC: Awake, alert and verbal. Following commands. LABORATORY DATA: Reviewed. WBC 16.3, RBC 4.49, hemoglobin 14.5, hematocrit 43.6 and platelets 232. PT 30.9, INR 1.25 and APTT 31.9. PO2 of 83, venous blood gas pH 7.48, venous blood gas PCO2 of 43 on FiO2 of 21. Sodium 135, potassium 3.1, chloride 95, carbon dioxide 31, anion gap 12, BUN 12, creatinine 0.7, GFR greater than 60, random glucose 201, calcium 9.1, total bilirubin 0.7, AST 21, ALT 15, alkaline phosphatase 101, troponin 0.04, total protein 7.4, albumin 3.8, globulin 3.6 and albumin-globulin ratio 1.1. Triglyceride 50, cholesterol 152, LDL cholesterol 82, HDL cholesterol 46, venous blood potassium 2.9, influenza type A and B negative, group A venous strep antigen negative. Head CT shows no acute intracranial abnormality. There is persistent focal neurologic deficit and ongoing clinical concern for acute infarction. Chest x-ray as read per ER physician shows right lower lobe pneumonia. IMPRESSION AND PLAN: Pneumonia, chronic obstructive pulmonary disease, obstructive sleep apnea syndrome, history of deep venous thrombosis, diabetes mellitus, hypertension, osteoarthritis of the knee and depression. Continue antibiotic therapy. We will add inhaled bronchodilators. We will order swallow evaluation to be done. Head of bed elevated at 45 degrees. Sleep apnea precautions. We will start the patient on bilevel positive airway pressure 07/25. We will place the patient on Pepcid 40 mg at bedtime for gastric prophylaxis. We will place the patient on Lovenox for deep venous thrombosis prophylaxis. The patient to be seen by Infectious Disease. Agree with order for procalcitonin level to be done. We will followup when results available. We recommended the patient have sleep study and full pulmonary function test as outpatient. The patient noted with hypokalemia and was given potassium chloride 40 mEq stat dose early this morning. We will followup with labs in the morning. This patient was seen and examined with Dr. Nuñez. Discussed assessment and plan as described above. This patient was seen and examined with Blayne Romero, nurse practitioner. Discussed assessment and plan as described above. Thank you for this consult. We will follow with you. Blayne Romero APN Evangelist Nuñez MD
[2019-01-11] MEDS: Enoxaparin 30 mg Syringe SC SCH (10:09)
[2019-01-11] MEDS: Nystatin 100,000 Units/gm Topical Pow(15 gm) TOP SCH ×2 (10:10→17:46)
--- NOTE | 2019-01-11 14:20 | PN ---
DATE: 01/11/2019 PULMONARY PROGRESS NOTE. REFERRING PHYSICIAN: Lelo Allan MD SUBJECTIVE: The patient is seen lying in bed, in no acute distress, no overnight events reported, reports did not wear BiPAP machine last night. The patient reports that the night before, she was having trouble with BiPAP machine and not sure if she wants to continue wearing BiPAP machine. Has shortness of breath with exertion, occasional coughing. No headache, rhinitis, chest pain, abdominal pain, nausea, vomiting, diarrhea, or leg pain reported. PHYSICAL EXAMINATION: VITAL SIGNS: Blood pressure 129/69, pulse 80, temperature 98, and oxygen saturation 95% on room air. GENERAL: In no acute distress. HEENT: Moist mucous membranes, Mallampati score is 4, crowded airway. NECK: Supple, no JVD. RESPIRATORY: Fair airflow bilaterally. CARDIOVASCULAR: S1 and S2. ABDOMEN: Soft and nontender. No distention, no organomegaly. EXTREMITIES: No bilateral lower extremity edema. NEUROLOGIC: Awake and alert, verbal, follows commands. MEDICATIONS: Reviewed. DuoNeb 3 mL inhalation every 4 hours p.r.n., Brovana 15 mcg every 12 hours, aspirin 81 mg daily, Pulmicort 0.5 mg inhalation every 12 hours, cefepime 1 g every 8 hours, Cardizem 60 mg every 8 hours, doxycycline 100 mg every 12 hours, Lovenox 30 mg subcu daily, Pepcid 40 mg at bedtime, Prozac 10 mg daily, Flonase nasal spray at bedtime, hydralazine 25 mg every 6 hours, Humulin R sliding scale a.c. and h.s., metformin 500 mg twice a day, and nystatin topically twice a day. LABORATORY DATA: Reviewed. Sodium 138, potassium 3.7, chloride 105, carbon dioxide 28, anion gap 9, BUN 20, creatinine 0.5, GFR greater than 60, POC glucose 133, random glucose 142, and calcium 8.6. Urine for Legionella antigen negative. Blood cultures preliminary, no growth after 48 hours. Brain MRI shows no acute intracranial abnormalities, mild chronic microangiopathic changes, mild age-related global parenchymal volume mass. IMPRESSION AND PLAN: Chronic obstructive lung disease, cerebrovascular accident, diabetes mellitus, and hypertension, admitted with sepsis secondary to healthcare-associated pneumonia, currently on antibiotic therapy. Continue inhaled bronchodilators, gastric prophylaxis, deep venous thrombosis prophylaxis, and continue antibiotics per Infectious Disease. We will discontinue bilevel positive airway pressure and start the patient on continuous positive airway pressure 7 cm, H2O. We will discuss with the patient in morning, how she tolerated continuous positive airway pressure machine, sleep apnea precautions, head of bed elevated at 45 degrees, fall precautions, out of bed to chair, physical therapy. The patient was seen and examined with Joaquin. Discussed assessment and plan as described above. The patient was seen and examined with Blayne Romero, Nurse practitioner. Discussed assessment and plan as described above. Thank you for this consult. We will follow with you. Blayne Romero APN Evangelist Nuñez MD
[2019-01-11 16:23] LABS: PH,URINE 6.5 (4.7-8.0); URINE BILIRUBIN SMALL (NEGATIVE); URINE BLOOD SMALL (NEGATIVE); URINE GLUCOSE (UA) NEGATIVE (NEGATIVE); URINE LEUKOCYTE ESTERASE NEGATIVE Leu/uL (NEGATIVE); URINE PROTEIN 30 mg/dL (<30 mg/dL); URINE UROBILINOGEN 0.2 E.U./dL (<1 E.U./dL)
[2019-01-11 16:27] LABS: URINE APPEARANCE TURBID (CLEAR); URINE COLOR BROWN (YELLOW)
[2019-01-11 16:38] LABS: URINE BACTERIA MANY /hpf; URINE CALCIUM OXALATE CRYSTALS FEW /hpf; URINE EPITHELIAL CELLS 0 - 2 /hpf (0-5); URINE RBC 0 - 2 /hpf (0-2); URINE WBC 0 - 2 /hpf (0-6)
[2019-01-11] MEDS: Fluticasone Nasal 50 mcg/Spray NS SCH (21:04)
--- NOTE | 2019-01-12 01:26 | PN ---
DATE: 01/11/2019 SUBJECTIVE: The patient is in bed, in no acute distress, was seen early this morning. She states she is doing much better. PHYSICAL EXAMINATION: VITAL SIGNS: Temperature is 98, blood pressure is 128/50, respiratory rate of 20, heart rate of 88. HEENT: Unremarkable. NECK: Supple. LUNGS: Decreased breath sounds. HEART: Normal S1, S2. ABDOMEN: Soft, nontender. LABORATORY DATA: Reveals the white count is down to 14,100, hemoglobin of 12, BUN and creatinine is noted. The patient's procalcitonin is 0.16. Urinalysis is noted and serology is reviewed. Microbiology reveals blood cultures are negative. Nasal MRSA is negative. Throat cultures, there are no growth. Review of orders reveals the patient's doxycycline and Maxipime were discontinued. The patient had MRI of the brain. Later today, I received a phone call from a nurse that upon giving antibiotic doxycycline the patient developed a rash, could have been the cefepime and was not present this morning. The patient's MRI of the head shows no acute findings. ASSESSMENT AND PLAN: This 68-year-old female with chronic obstructive lung disease, cerebrovascular accident, diabetes mellitus, hypertension, admitted with sepsis secondary to healthcare-associated pneumonia and cefepime and doxycycline. On day #3 now has developed a rash, diffuse maculopapular rash, this was described by nursing staff, now off of the antibiotics. Dr. Nuñez's note is reviewed, may complete with by mouth. Limited options because of a QTC prolongation. Since the cultures are negative and the patient has received three days, we will hold off any antibiotics at this time and follow the patient with you. Emmanuel Daley MD
--- NOTE | 2019-01-12 01:27 | PN ---
DATE: 01/11/2019 SUBJECTIVE: The patient is a 68-year-old female. The patient was seen and examined at the bedside on 01/11/2019. No shortness of breath. No nausea, vomiting, or diarrhea. Last night, the patient did not wear BiPAP machine. Sleep specialist is on the case. They are working on pts problem with the BiPAP machine. Occasionally coughing and having shortness of breath. No fever. No chills, but the patient has rash all over the body especially in the back and upper extremities , but still itchy. PHYSICAL EXAMINATION: VITAL SIGNS: Blood pressure 129/69, pulse 80, temperature 98, and oxygen saturations 95% on room air. HEENT: Head; normocephalic and atraumatic. Eyes; PERRLA. Extraocular muscles are intact. Conjunctivae clear. Nose patent. Mucous membranes moist. NECK: Supple. No carotid bruits, JVD, or thyromegaly. CHEST: Bilaterally symmetrical. HEART: S1 and S2 positive. LUNGS: Clear to auscultation. ABDOMEN: Soft. Bowel sounds present. No organomegaly. EXTREMITIES: No edema. No cyanosis. NEUROLOGIC: The patient is awake, alert, and moving all four extremities. No focal deficits. MEDICATIONS: DuoNeb, Brovana, aspirin, Pulmicort, Cardizem, doxycycline, Lovenox, Pepcid, Prozac, Flonase, hydralazine, sliding scale metformin, and nystatin topically. LABORATORY DATA: Sodium 138, potassium 3.7, BUN 20, and creatinine 0.5. Carbon dioxide 28. Glucose 142. Calcium 8.6. Urine has Legionella antigen negative. Blood cultures, no growth. Brain MRI shows no intracranial abnormalities. ASSESSMENT AND PLAN: Ms. Mara Walker is a 68-year-old lady with multiple medical problems, sleep apnea syndrome, obesity, chronic obstructive pulmonary disease, cerebrovascular accident, diabetes, hypertension, sepsis secondary to healthcare-associated pneumonia, getting antibiotics, inhaled bronchodilators, and gastric and deep venous thrombosis prophylaxes. Sleep specialist did changes in the bilevel positive airway pressure. CAT scan of the chest and abdomen done, results are pending. Today, the patient had allergic reaction with may be antibiotics or as per the patient, she has lotion, may be with some type of lotion. ID is on the case. changes in the antibiotics, out of bed, physical therapy, repeat labs, and we will follow up. Lelo Allan MD MTDHola
[2019-01-12 06:41] LABS: BASO # 0.04 K/mm3 (0.0-2.0); BASO % 0.4 % (0.0-3.0); EOS # 0.4 (0.0-0.7); EOS % 3.7 % (1.5-5.0); HEMOGLOBIN 12.6 g/dL (12.0-16.0); LYMPH # 1.5 (1.2-3.4); MEAN CELL VOLUME 88.1 fl (80.0-105.0); MEAN CORPUSCULAR HEMOGLOBIN 28.8 pg (25.0-35.0); MEAN CORPUSCULAR HGB CONC 32.6 g/dl (31.0-37.0); MEAN PLATELET VOLUME 10.1 fl (7.0-11.0); MONO # 0.8 (0.1-0.6); MONO % 7.5 % (1.0-6.0); RBC 4.38 10^6/uL (3.5-6.1); WHITE BLOOD COUNT 11.3 10^3/uL (4.5-11.0)
[2019-01-12 07:17] LABS: ALB/GLOB RATIO 0.8 (1.1-1.8); ALBUMIN 2.8 g/dL (3.0-4.8); ALT/SGPT 19 U/L (7-56); AST/SGOT 28 U/L (14-36); BLOOD UREA NITROGEN 14 mg/dL (7-21); CALCIUM 8.6 mg/dL (8.4-10.5); GFR NON-AFRICAN AMERICAN > 60
[2019-01-12] MEDS: Budesonide 0.5 mg/2 ml Inhal Susp UD IH SCH ×2 (07:54→20:21)
[2019-01-12] MEDS: Arformoterol 15 mcg/2 ml Inh Sol IH SCH ×2 (07:54→20:21)
[2019-01-12] MEDS: Insulin Reg-LOW-Coverage SC SCH (08:02)
[2019-01-12] MEDS: Nystatin 100,000 Units/gm Topical Pow(15 gm) TOP SCH ×2 (09:37→17:28)
[2019-01-12] MEDS: Enoxaparin 30 mg Syringe SC SCH (09:37)
--- NOTE | 2019-01-12 10:08 | CT ---
Date of service: 01/11/2019 PROCEDURE: CT Chest, Abdomen and Pelvis without intravenous contrast HISTORY: r/o PNA and abdominal pain COMPARISON: None available. TECHNIQUE: Radiation dose: Total exam DLP = 1779.09 mGy-cm. This CT exam was performed using one or more of the following dose reduction techniques: Automated exposure control, adjustment of the mA and/or kV according to patient size, and/or use of iterative reconstruction technique. FINDINGS: CT CHEST WITHOUT CONTRAST: LUNGS: Clear. No nodule, mass or consolidation. MEDIASTINUM: Unremarkable. Normal caliber aorta and pulmonary arterial trunk. Normal size heart. LYMPH NODES: Mildly enlarged axillary lymph nodes PLEURA: Unremarkable. No pneumothorax. No pleural fluid. BONES: Unremarkable. OTHER FINDINGS: None. CT ABDOMEN AND PELVIS: LIVER: Unremarkable. No gross lesion or ductal dilatation. GALLBLADDER AND BILE DUCTS: Unremarkable. PANCREAS: Unremarkable. No gross lesion or ductal dilatation. SPLEEN: Unremarkable. ADRENALS: Unremarkable. No mass. KIDNEYS AND URETERS: Unremarkable. No hydronephrosis. No solid mass. VASCULATURE: Minimal aortic calcification Unremarkable. No aortic aneurysm. BOWEL: Unremarkable. No obstruction. No gross mural thickening. APPENDIX: Normal appendix. PERITONEUM: Unremarkable. No free fluid. No free air. LYMPH NODES: Unremarkable. No enlarged lymph nodes. BLADDER: Unremarkable. REPRODUCTIVE: Unremarkable. BONES: No acute fracture. OTHER FINDINGS: The report concurs with the preliminary [facility] report IMPRESSION: No acute intrathoracic or intra-abdominal abnormalities
[2019-01-12] MEDS: Insulin Reg-MEDIUM-Coverage SC SCH ×3 (12:30→21:17)
--- NOTE | 2019-01-12 12:44 | PN ---
DATE: 01/12/2019 PULMONARY PROGRESS NOTE. REFERRING PHYSICIAN: Lelo Allan MD SUBJECTIVE: The patient is seen lying in bed, in no acute distress. Reports not using CPAP machine last night. She states that she does not want to use CPAP machine at all. No headache, rhinitis, cough, shortness of breath, chest pain, abdominal pain, nausea, vomiting, diarrhea, or leg pain reported. The patient reports having rash all over her body, states that it is itchy. PHYSICAL EXAMINATION: VITAL SIGNS: Blood pressure 149/71, pulse 90, temperature 98.8, and oxygen saturation 95% on room air. GENERAL: In no acute distress. HEENT: Moist mucous membranes, Mallampati score is 4, crowded airway. NECK: Supple. No JVD. RESPIRATORY: Fair airflow bilaterally. CARDIOVASCULAR: S1 and S2. ABDOMEN: Soft and nontender. No distention. No organomegaly. EXTREMITIES: No bilateral lower extremity edema. NEUROLOGIC: Awake and alert, verbal, follows commands. MEDICATIONS: Reviewed. Tylenol 650 every 4 hours p.r.n. for mild pain, DuoNeb 3 mL inhalation every 4 hours p.r.n., Brovana 15 mcg every 12 hours, aspirin 81 mg daily, Pulmicort 0.5 mg inhalation every 12 hours, Cardizem 60 mg every 8 hours, Benadryl 25 mg three times a day p.r.n., Lovenox 30 mg subcutaneously daily, Pepcid 40 mg at bedtime, Prozac 10 mg daily, Flonase nasal spray at bedtime, hydralazine 25 mg every 6 hours, Humulin R sliding scale before meal and at bedtime, metformin 500 mg twice a day, Solu-Medrol 40 mg three times a day, Elocon cream topically twice a day to the affected area, Singulair 10 mg at bedtime, nystatin topically twice a day. LABORATORY DATA: Reviewed. WBC 11.3, RBC 4.38, hemoglobin 12.6, hematocrit 38.6, platelets 257. Sodium 136, potassium 3.6, chloride 103, carbon dioxide 30, anion gap 8, BUN 14, creatinine 0.5, GFR greater than 60, POC glucose 142, random glucose 138, calcium 8.6, magnesium 1.7, total bilirubin 0.3, AST 28, ALT 19, alkaline phosphatase 91, total protein 6.1, albumin 2.8, globulin 3.3, albumin-globulin ratio 0.8. Urinalysis; urine protein 30, urine ketones 15, urine blood small, urine nitrite positive, urine bilirubin small. Blood cultures preliminary, no growth after three days. Chest, abdomen, and pelvis CT shows no acute intrathoracic or intra-abdominal abnormalities. IMPRESSION AND PLAN: Chronic obstructive lung disease, cerebrovascular accident, diabetes mellitus, and hypertension, admitted with sepsis secondary to healthcare-associated pneumonia, currently on antibiotic therapy. Continue antibiotic therapy per Infectious Disease. The patient states that she does not want to use continuous positive airway pressure machine. We will continue to encourage continuous positive airway pressure use, sleep apnea precautions, head of bed elevated at 45 degrees. The patient with rash which is currently being treated by Dr. Allan with Benadryl, Elocon cream and Solu-Medrol have been added. Case discussed with Dr. Allan who will manage steroid use at this time. Fall precautions, physical therapy, out-of-bed to chair. This patient was seen and examined with Joaquin. Discussed assessment and plan as described above. This patient was seen and examined with Blayne Romero, nurse practitioner. Discussed assessment and plan as described above. Thank you for this consult. We will follow with you. Blayne Romero APN Evangelist Nuñez MD MISHA
[2019-01-12] MEDS: MethylPREDNISolone 40 mg Vial IVP SCH ×2 (13:03→17:25)
--- NOTE | 2019-01-12 13:13 | PN ---
DATE: 01/12/2019 SUBJECTIVE: The patient seen earlier today in 271, bed 2. The patient has a new rash, maculopapular rash, she is complaining of ____ itching. No fevers, no chills. PHYSICAL EXAMINATION: VITAL SIGNS: Temperature is 98, blood pressure is 180/70, respiratory rate of 20, heart rate of 88. HEENT: Unremarkable. NECK: Supple. LUNGS: Have decreased breath sounds. HEART: Normal S1, S2. ABDOMEN: Soft. SKIN: Reveals a maculopapular diffuse rash. LABORATORY EXAMINATION: Reveals a 11,000 white count which is much improved and the chemistries are noted of 0.5. Procalcitonin is 0.16. Urinalysis is unremarkable. Influenza is negative. Legionella antigen is negative. Group B Strep is negative. Microbiology reveals the nares are negative. Blood cultures are negative and the patient had a CAT scan of the abdomen and pelvis without contrast and which shows no intrathoracic or intra-abdominal abnormalities. Gallbladder is unremarkable. The lungs are clear. There is no pneumonia and the patient also had an MRI of the brain which is noted. Currently off of antibiotics. ASSESSMENT AND PLAN: This is a 68-year-old female with chronic obstructive lung disease, cerebrovascular accident, diabetes mellitus, hypertension, admitted initially thought to have sepsis with healthcare-associated pneumonia, although the CAT scan is negative for off of antibiotics. Normal cultures, normal procalcitonin, negative CAT scan of the chest. We will keep the patient off of antibiotics. Unfortunately the patient's rash is present. It is unclear if it is all antibiotic induced. We will follow with you. Emmanuel Daley MD
[2019-01-12] MEDS: Mometasone 0.1% Cream(15 gm) TOP SCH (17:25)
[2019-01-12] MEDS: Fluticasone Nasal 50 mcg/Spray NS SCH ×2 (21:18→21:22)
[2019-01-12] MEDS ORDERED: DiphenhydrAMINE 50 mg/ml Inj IVP STA (23:23)
[2019-01-13] MEDS: Insulin Reg-MEDIUM-Coverage SC SCH ×4 (08:00→22:01)
--- NOTE | 2019-01-13 08:10 | PN ---
DATE: 01/12/2019 SUBJECTIVE: The patient is a 68-year-old female. The patient was seen and examined at the bedside on 01/02/2019. She had a rash all over the body, The patient did not want a CPAP machine. No fever, no chills, no hematochezia, coughing, but shortness of breath is better. The patient reports having a rash all over the body and it is itchy and a macular type of rash. PHYSICAL EXAMINATION: VITAL SIGNS: Blood pressure 149/71, pulse 50, temperature 98.8, oxygen saturation 95% on room air. HEENT: Head; normocephalic and atraumatic. Eyes; PERRLA. Extraocular muscles are intact. Conjunctivae clear. Nose patent. Mucous membranes moist. NECK: Supple. No carotid bruit. No JVD or thyromegaly. CHEST: Bilaterally symmetrical. HEART: S1 and S2 positive. LUNGS: Clear to auscultation. ABDOMEN: Soft, nontender. No organomegaly. EXTREMITIES: No edema. No cyanosis. NEUROLOGIC: The patient is awake and alert. Follows simple commands. MEDICATIONS: Tylenol, Duoneb, Brovana, aspirin, Pulmicort, Benadryl, Lovenox, Pepcid, Prozac, Flonase, hydralazine, insulin, metformin, Solu-Medrol, Elocon cream. LABORATORY DATA: Sodium 136, potassium 3.6, BUN 14, creatinine 0.5. ASSESSMENT AND PLAN: Ms. Mara Walker is a 68-year-old lady with chronic obstructive lung disease, cerebrovascular accident, diabetes mellitus, hypertension, obesity, history of deep venous thrombosis, admitted for sepsis secondary to healthcare associated pneumonia, was on antibiotics, but after allergic reaction Dr. Daley stopped all antibiotics. Discussion done with Dr. Daley. The patient states that she does not want to use continuous positive airway pressure machine . Encouraged the patient to use BiPAP. I had discussion done with Blayne Romero APN, with Dr. Nuñez, general road supervisor. I started the Solu-Medrol, Singulair, Benadryl, Elocon cream. Discussion with social workers also for placement. GI prophylaxis, repeat labs. We will follow up. Lelo Allan MD MISHA
[2019-01-13] MEDS: Arformoterol 15 mcg/2 ml Inh Sol IH SCH ×2 (08:19→19:29)
[2019-01-13] MEDS: Budesonide 0.5 mg/2 ml Inhal Susp UD IH SCH ×2 (08:19→19:29)
[2019-01-13 08:39] LABS: URINE BILIRUBIN NEGATIVE (NEGATIVE); URINE BLOOD TRACE-LYSED (NEGATIVE); URINE GLUCOSE (UA) NEGATIVE (NEGATIVE); URINE LEUKOCYTE ESTERASE SMALL Leu/uL (NEGATIVE); URINE PROTEIN NEGATIVE mg/dL (<30 mg/dL); URINE UROBILINOGEN 0.2 E.U./dL (<1 E.U./dL)
[2019-01-13 08:41] LABS: URINE APPEARANCE SL CLOUDY (CLEAR); URINE COLOR YELLOW (YELLOW)
[2019-01-13 08:48] LABS: URINE BACTERIA FEW /hpf; URINE EPITHELIAL CELLS 0 - 2 /hpf (0-5); URINE RBC 0 - 2 /hpf (0-2); URINE WBC 0 - 2 /hpf (0-6)
[2019-01-13] MEDS: MethylPREDNISolone 40 mg Vial IVP SCH ×3 (09:14→17:51)
[2019-01-13] MEDS: Enoxaparin 30 mg Syringe SC SCH (09:14)
[2019-01-13] MEDS: Mometasone 0.1% Cream(15 gm) TOP SCH ×2 (09:16→17:50)
[2019-01-13] MEDS: Nystatin 100,000 Units/gm Topical Pow(15 gm) TOP SCH ×2 (09:17→17:50)
--- NOTE | 2019-01-13 09:43 | RAD ---
Date of service: 01/12/2019 PROCEDURE: CHEST RADIOGRAPH, 1 VIEW HISTORY: r/o pna COMPARISON: 01/09/2019 FINDINGS: LUNGS: Clear. PLEURA: No pneumothorax or pleural fluid seen. CARDIOVASCULAR: No aortic atherosclerotic calcification present. Normal. OSSEOUS STRUCTURES: No significant abnormalities. VISUALIZED UPPER ABDOMEN: Normal. OTHER FINDINGS: None. IMPRESSION: No active disease.
--- NOTE | 2019-01-13 14:18 | PN ---
DATE: 01/13/2019 PULMONARY PROGRESS NOTE REFERRING PHYSICIAN: Lelo Allan MD SUBJECTIVE: The patient is seen lying in bed, in no acute distress. No overnight events report. The patient did not wear the CPAP machine last night, so has rash which she states is improving. Reports that there is still itchiness to rash. No headache, rhinitis, cough, shortness of breath, chest pain, abdominal pain, nausea, vomiting, diarrhea, leg pain or leg swelling reported. PHYSICAL EXAMINATION: GENERAL: No acute distress. VITAL SIGNS: Blood pressure 164/82, pulse 75, temperature 98.3; oxygen saturation 94 nasal cannula. HEENT: Moist mucous membranes. Mallampati score of 4. Crowded airways. NECK: Supple. No JVD. RESPIRATORY: Fair air flow bilaterally CARDIOVASCULAR: S1 and S2. ABDOMEN: Soft, nontender. No distention. No organomegaly. EXTREMITIES: No bilateral lower extremity edema. NEUROLOGIC: Awake, alert and verbal. Following commands. MEDICATIONS: Reviewed. Tylenol 650 every 4 hours p.r.n. for mild pain, DuoNeb 3 mL inhalation every 4 hours p.r.n., Brovana 15 mcg every 12 hours, aspirin 81 mg daily, Pulmicort 0.5 mg inhalation every 12 hours, Cardizem 60 mg every 8 hours, Benadryl 25 mg three times a day p.r.n. rash, Lovenox 30 mg subcutaneously daily, Pepcid 40 mg at bedtime, Prozac 10 mg daily, Flonase nasal spray at bedtime, hydralazine 25 mg every 6 hours, Humulin R sliding scale before meal and at bedtime. Glucophage 500 mg twice a day. Solu-Medrol 40 mg three times a day. Elocon cream topically twice a day, Singulair 10 mg at bedtime, nystatin topically twice a day to the affected area. LABORATORY DATA: Reviewed. POC glucose 281. Blood cultures preliminary: No growth after four days. Urine culture final, no growth. Chest x-ray shows no active disease. IMPRESSION AND PLAN: Chronic obstructive lung disease, cerebrovascular accident, diabetes mellitus, and hypertension, admitted with sepsis secondary to healthcare-associated pneumonia, Continue antibiotics per Infectious Disease. The patient is refusing CPAP machine. Continue to encourage CPAP use. Sleep apnea precautions. Head of bed elevated to 45 degrees. Rash seems to be improving. Continue current treatment per primary care physician. Continue inhaled bronchodilators, steroids, leukotriene inhibitors, Flonase nasal spray. Will start patient on Claritin daily. Fall precautions, physical therapy, out of bed to chair. This patient was seen and examined with Dr. Nuñez. Discussed assessment and plan as described above. This patient was seen and examined with Blayne Romero, nurse practitioner. Discussed assessment and plan as described above. Thank you for this consult. We will follow with you. Blayne Romero APN Evangelist Nuñez MD MISHA
[2019-01-13] MEDS ORDERED: DiphenhydrAMINE 50 mg/ml Inj IVP STA (20:14)
--- NOTE | 2019-01-13 21:12 | CP.PCM.PN ---
Subjective - Date & Time of Evaluation Date of Evaluation: 01/13/19 Time of Evaluation: 07:20 - Subjective Subjective: Comfortable in bed, not in distress. Objective - Vital Signs/Intake and Output Vital Signs (last 24 hours): Temp Pulse Resp BP Pulse Ox 100 F H 93 H 18 172/78 H 95 01/12/19 17:53 01/12/19 17:53 01/12/19 17:53 01/12/19 17:53 01/12/19 06:00 Intake and Output: 01/12/19 01/13/19 18:59 06:59 Intake Total 1080 Output Total 600 Balance 480 - Medications Medications: Current Medications Acetaminophen (Tylenol 325mg Tab) 650 mg PO Q4H PRN PRN Reason: Pain, Mild (1-3) Last Admin: 01/12/19 17:25 Dose: 650 mg Albuterol/Ipratropium (Duoneb 3 Mg/0.5 Mg (3 Ml) Ud) 3 ml IH Q4H PRN PRN Reason: Shortness of Breath Arformoterol Tartrate (Brovana) 15 mcg IH [id number] [facility] Last Admin: 01/12/19 20:21 Dose: 15 mcg Aspirin (Ecotrin) 81 mg PO DAILY [facility] Last Admin: 01/12/19 09:37 Dose: 81 mg Budesonide (Pulmicort Respules) 0.5 mg IH [id number] [facility] Last Admin: 01/12/19 20:21 Dose: 0.5 mg Diltiazem HCl (Cardizem) 60 mg PO Q8H [facility] Last Admin: 01/12/19 17:32 Dose: 60 mg Diphenhydramine HCl (Benadryl) 25 mg PO TID PRN PRN Reason: Rash Last Admin: 01/12/19 17:25 Dose: 25 mg Enoxaparin Sodium (Lovenox) 30 mg SC DAILY [facility]; Protocol Last Admin: 01/12/19 09:37 Dose: 30 mg Famotidine (Pepcid) 40 mg PO HS [facility] Last Admin: 01/12/19 21:18 Dose: 40 mg Fluoxetine HCl (Prozac) 10 mg PO DAILY [facility] Last Admin: 01/12/19 09:37 Dose: 10 mg Fluticasone Propionate (Flonase) 1 actuation NS HS [facility] Last Admin: 01/12/19 21:22 Dose: Not Given Hydralazine HCl (Apresoline) 25 mg PO Q6 [facility] Last Admin: 01/12/19 17:27 Dose: 25 mg Insulin Human Regular (Humulin R Med) 0 units SC ACHS [facility]; Protocol Last Admin: 01/12/19 21:17 Dose: Not Given Metformin HCl (Glucophage) 500 mg PO BID [facility] Last Admin: 01/12/19 17:37 Dose: 500 mg Methylprednisolone (Solu-Medrol) 40 mg IVP TID [facility] Last Admin: 01/12/19 17:25 Dose: 40 mg Mometasone Furoate (Elocon Cream) 0 gm TOP BID [facility] Last Admin: 01/12/19 17:25 Dose: 1 applic Montelukast Sodium (Singulair) 10 mg PO HS [facility] Nystatin (Nystop Topical Powder) 0 gm TOP BID [facility] Last Admin: 01/12/19 17:28 Dose: 1 applic - Labs Labs: 01/12/19 06:00 01/12/19 06:00 PT 13.9 SECONDS (9.4-12.5) H 01/09/19 00:05 INR 1.25 01/09/19 00:05 APTT 31.9 Seconds (26.9-38.3) 01/09/19 00:05 - Constitutional Appears: Chronically Ill - Head Exam Head Exam: NORMAL INSPECTION - Respiratory Exam Respiratory Exam: Decreased Breath Sounds - Cardiovascular Exam Cardiovascular Exam: +S1, +S2 - GI/Abdominal Exam GI & Abdominal Exam: Soft. absent: Tenderness Assessment and Plan - Assessment and Plan (Free Text) Plan: Assessment No evidence of pneumonia on CT chest rash, etiology not clear COPD DM HTN Plan Will continue to monitor off antibiotics
[2019-01-13] MEDS: Fluticasone Nasal 50 mcg/Spray NS SCH (22:03)
--- NOTE | 2019-01-13 22:50 | PN ---
DATE: 01/13/2019 SUBJECTIVE: The patient is a 68-year-old female. The patient is seen and examined at the bedside on 01/13/2019. Looking comfortable. No fever. No chills. No hematuria or hematochezia. No headache or dizziness. No chest pain. No palpitation. No rash. He is getting better. The cough and shortness of breath is getting better, but according to the patient still she is itchy. PHYSICAL EXAMINATION VITAL SIGNS: Blood pressure 160/80, pulse 75, temperature 98.3, oxygen saturation 94% nasal cannula. HEENT: Head is normocephalic and atraumatic. Eyes; PERRLA. Extraocular muscles are intact. Conjunctivae clear. Nose patent. Mucous membranes moist. NECK: Supple. No carotid bruit. No JVP or thyromegaly. CHEST: Bilaterally symmetrical. HEART: S1 and S2 positive. LUNGS: Clear to auscultation. ABDOMEN: Soft. Bowel sounds present. No organomegaly. EXTREMITIES: No edema. No cyanosis. NEUROLOGIC: The patient awake, alert. Follows simple commands. MEDICATIONS: Tylenol, DuoNeb, Brovana, aspirin, Pulmicort, Cardizem, Benadryl, Pepcid, Prozac, and hydralazine. LABORATORY DATA: We do not have additional labs today, but as we draw labs glucose of 81. ASSESSMENT AND PLAN: Ms. Mara Walker is a 68-year-old female with multiple medical problems, chronic obstructive lung disease, cerebrovascular accident, diabetes mellitus, hypertension, admitted for sepsis secondary to healthcare associated pneumonia, off the antibiotics as per Infectious Disease because of allergic reactions, dermatitis due to allergic reaction is improving, but still there. Continue treatment out of bed physical therapy. Gastrointestinal and deep venous thrombosis prophylaxis. We will follow up. Lelo Allan MD
--- NOTE | 2019-01-14 03:53 | CP.PCM.PN ---
Subjective - Date & Time of Evaluation Date of Evaluation: 01/14/19 Time of Evaluation: 03:50 - Subjective Subjective: S:Patient was seen because I was asked to co-sign order of benadryl 25 mg IV. Patient has been itching all over body and has rash on left upper shoulder area as per nurse. She has been sleeping comfortably now. Medical record was reviewe. O:VSS. Not in acute distress. LUNGS: Normal breathing pattern. SKIN: No rash noted on exposed skin. A: Itching. P:Benadryl 25 mg IV x 1. Continue Mometasone topically. Objective - Vital Signs/Intake and Output Vital Signs (last 24 hours): Temp Pulse Resp BP Pulse Ox 97.9 F 81 18 165/81 H 96 01/13/19 06:00 01/13/19 13:00 01/13/19 06:00 01/13/19 13:00 01/13/19 06:00 - Medications Medications: Current Medications Acetaminophen (Tylenol 325mg Tab) 650 mg PO Q4H PRN PRN Reason: Pain, Mild (1-3) Last Admin: 01/13/19 00:21 Dose: 650 mg Albuterol/Ipratropium (Duoneb 3 Mg/0.5 Mg (3 Ml) Ud) 3 ml IH Q4H PRN PRN Reason: Shortness of Breath Arformoterol Tartrate (Brovana) 15 mcg IH [id number] [facility] Last Admin: 01/13/19 19:29 Dose: 15 mcg Aspirin (Ecotrin) 81 mg PO DAILY [facility] Last Admin: 01/13/19 09:15 Dose: 81 mg Budesonide (Pulmicort Respules) 0.5 mg IH [id number] [facility] Last Admin: 01/13/19 19:29 Dose: 0.5 mg Diltiazem HCl (Cardizem) 60 mg PO Q8H [facility] Last Admin: 01/14/19 03:00 Dose: Not Given Diphenhydramine HCl (Benadryl) 25 mg PO TID PRN PRN Reason: Rash Last Admin: 01/13/19 10:10 Dose: 25 mg Enoxaparin Sodium (Lovenox) 30 mg SC DAILY [facility]; Protocol Last Admin: 01/13/19 09:14 Dose: 30 mg Famotidine (Pepcid) 40 mg PO HS [facility] Last Admin: 01/13/19 22:02 Dose: 40 mg Fluoxetine HCl (Prozac) 10 mg PO DAILY [facility] Last Admin: 01/13/19 09:15 Dose: 10 mg Fluticasone Propionate (Flonase) 1 actuation NS HS [facility] Last Admin: 01/13/19 22:03 Dose: Not Given Hydralazine HCl (Apresoline) 25 mg PO Q6 [facility] Last Admin: 01/14/19 00:38 Dose: Not Given Insulin Human Regular (Humulin R Med) 0 units SC [facility]; Protocol Last Admin: 01/13/19 22:01 Dose: 2 units Loratadine (Claritin) 10 mg PO DAILY [facility] Metformin HCl (Glucophage) 500 mg PO BID [facility] Last Admin: 01/13/19 17:48 Dose: 500 mg Methylprednisolone (Solu-Medrol) 40 mg IVP TID [facility] Last Admin: 01/13/19 17:51 Dose: 40 mg Mometasone Furoate (Elocon Cream) 0 gm TOP BID [facility] Last Admin: 01/13/19 17:50 Dose: Not Given Montelukast Sodium (Singulair) 10 mg PO [facility] Last Admin: 01/13/19 22:02 Dose: 10 mg Nystatin (Nystop Topical Powder) 0 gm TOP BID [facility] Last Admin: 01/13/19 17:50 Dose: Not Given - Labs Labs: 01/12/19 06:00 01/12/19 06:00 PT 13.9 SECONDS (9.4-12.5) H 01/09/19 00:05 INR 1.25 01/09/19 00:05 APTT 31.9 Seconds (26.9-38.3) 01/09/19 00:05
[2019-01-14 07:50] LABS: BLOOD UREA NITROGEN 24 mg/dL (7-21); CALCIUM 8.9 mg/dL (8.4-10.5); GFR NON-AFRICAN AMERICAN > 60
[2019-01-14] MEDS: Budesonide 0.5 mg/2 ml Inhal Susp UD IH SCH ×2 (08:05→19:44)
[2019-01-14] MEDS: Arformoterol 15 mcg/2 ml Inh Sol IH SCH ×2 (08:05→19:44)
[2019-01-14 08:18] LABS: HEMOGLOBIN 12.3 g/dL (12.0-16.0); MEAN CELL VOLUME 87.6 fl (80.0-105.0); MEAN CORPUSCULAR HEMOGLOBIN 28.3 pg (25.0-35.0); MEAN CORPUSCULAR HGB CONC 32.3 g/dl (31.0-37.0); MEAN PLATELET VOLUME 10.3 fl (7.0-11.0); RBC 4.35 10^6/uL (3.5-6.1); RED CELL DISTRIBUTION WIDTH 13.6 % (11.5-14.5); WHITE BLOOD COUNT 17.7 10^3/uL (4.5-11.0)
[2019-01-14] MEDS: Insulin Reg-MEDIUM-Coverage SC SCH (08:30)
[2019-01-14 09:20] VITALS: RESP 20
[2019-01-14] MEDS: Enoxaparin 30 mg Syringe SC SCH (09:24)
[2019-01-14] MEDS: MethylPREDNISolone 40 mg Vial IVP SCH ×3 (09:24→17:39)
[2019-01-14] MEDS: Mometasone 0.1% Cream(15 gm) TOP SCH ×2 (09:31→17:44)
[2019-01-14] MEDS: Nystatin 100,000 Units/gm Topical Pow(15 gm) TOP SCH ×2 (09:32→17:44)
--- NOTE | 2019-01-14 10:54 | CP.PCM.PCO ---
Physician Communication Note - Physician Communication Note Physician Communication Note: continue solumedrol for allergic reaction
[2019-01-14] MEDS: Insulin Reg-HIGH-Coverage SC SCH ×3 (12:23→22:01)
--- NOTE | 2019-01-14 12:47 | PN ---
DATE: 01/14/2019 REFERRING PHYSICIAN: Lelo Allan MD. SUBJECTIVE: The patient is seen lying in bed, in no acute distress. No overnight events reported. The patient does report feeling as though she has phlegm stuck in her throat. States she feels a little weak this morning. Has refused to use CPAP machine at bedtime. No headache, rhinitis, chest pain, abdominal pain, nausea, vomiting, diarrhea, leg pain reported. Rash to body is improving. Rash still continues to back and posterior lower extremities. PHYSICAL EXAMINATION: GENERAL: No acute distress. VITAL SIGNS: Blood pressure 150/87, pulse 64, oxygen saturation 98% on room air, temperature 97.5. HEENT: Moist mucous membranes. Mallampati score of 4. Crowded airways. NECK: Supple. No JVD. RESPIRATORY: Fair airflow bilaterally CARDIOVASCULAR: S1, S2. ABDOMEN: Soft, nontender. No distention. No organomegaly. EXTREMITIES: No bilateral lower extremity edema. NEUROLOGIC: Awake, alert, verbal. Following commands. MEDICATIONS: Reviewed. Tylenol 650 every 4 hours p.r.n. mild pain, DuoNeb 3 mL inhalation every 4 hours p.r.n., Brovana 15 mcg inhalation every 12 hours, aspirin 81 mg daily, Pulmicort 0.5 mg inhalation every 12 hours, Cardizem 60 mg every 8 hours, Benadryl 25 mg three times a day p.r.n., Lovenox 30 mg subcu daily, Pepcid 40 mg at bedtime, Prozac 10 mg daily, Flonase nasal spray at bedtime, hydralazine 25 mg every 6 hours, Humulin R sliding scale a.c. and h.s., Claritin 10 mg daily, metformin 500 mg twice a day, Solu-Medrol 40 mg three times a day, Elocon cream topically twice a day to affected areas, Singulair 10 mg at bedtime, nystatin topically twice a day to the affected area. LABORATORY DATA: Reviewed. WBC 17.7, RBC 4.35, hemoglobin 12.3, hematocrit 38.1, platelets 311. Sodium 137, potassium 4.1, chloride 100, carbon dioxide 32, anion gap 9, BUN 24, creatinine 0.5, GFR greater than 60, POC glucose 290, random glucose 304, calcium 8.9. Urine culture, final, no growth. Blood cultures preliminary, no growth after 24 hours. Group A strep throat culture, final, no beta strep group A isolated. IMPRESSION AND PLAN: Chronic obstructive lung disease, cerebrovascular accident, diabetes mellitus, hypertension, admitted with sepsis secondary to healthcare-associated pneumonia, Antibiotics were stopped due to the patient developing rash. Continue followup with Infectious Disease. The patient refusing to use continuous positive airway pressure machine. Continue to encourage continuous positive airway pressure use for suspected sleep apnea syndrome. Sleep apnea precautions. Head of bed elevated to 45 degrees. Continue current treatment for rash per primary care physician. The patient currently on steroids, antihistamines, Elocon cream, Benadryl as needed for rash. Rash appears to be improving except on the patient's back and posterior lower extremities. Recommend the patient physical therapy, out of bed to chair. Continue inhaled bronchodilators, leukotriene inhibitors, Flonase nasal spray. Fall precautions. We will start the patient on Cepacol throat lozenges for report of throat irritation. Continue gastric prophylaxis, deep venous thrombosis prophylaxis. This patient was seen and examined with Dr. Nuñez. Discussed assessment and plan as described above. This patient was seen and examined with Blayne Romero, nurse practitioner. Discussed assessment and plan as described above. Thank you for this consult. We will follow with you. Blayne Romero APN Evangelist Nuñez MD
[2019-01-14] MEDS: Benzocaine/Menthol (Cepacol) Lozenge MT SCH ×3 (13:46→22:00)
--- NOTE | 2019-01-14 16:02 | CARD ---
APPROVED REPORT Date of service: 01/14/2019 EKG Measurement Heart [id number] <Conclusion> Sinus rhythm with occasional premature ventricular complexes Right bundle branch block Left anterior fascicular block Bifascicular block Abnormal ECG
[2019-01-14 16:10] LABS: TROPONIN I < 0.01 ng/mL
--- NOTE | 2019-01-14 21:50 | CP.PCM.PN ---
Subjective - Date & Time of Evaluation Date of Evaluation: 01/14/19 Time of Evaluation: 06:55 - Subjective Subjective: Afebrile, not in distress. Objective - Vital Signs/Intake and Output Vital Signs (last 24 hours): Temp Pulse Resp BP Pulse Ox 97.9 F 81 18 165/81 H 96 01/13/19 06:00 01/13/19 13:00 01/13/19 06:00 01/13/19 13:00 01/13/19 06:00 - Medications Medications: Current Medications Acetaminophen (Tylenol 325mg Tab) 650 mg PO Q4H PRN PRN Reason: Pain, Mild (1-3) Last Admin: 01/13/19 00:21 Dose: 650 mg Albuterol/Ipratropium (Duoneb 3 Mg/0.5 Mg (3 Ml) Ud) 3 ml IH Q4H PRN PRN Reason: Shortness of Breath Arformoterol Tartrate (Brovana) 15 mcg IH [id number] [facility] Last Admin: 01/13/19 19:29 Dose: 15 mcg Aspirin (Ecotrin) 81 mg PO DAILY [facility] Last Admin: 01/13/19 09:15 Dose: 81 mg Budesonide (Pulmicort Respules) 0.5 mg IH [id number] [facility] Last Admin: 01/13/19 19:29 Dose: 0.5 mg Diltiazem HCl (Cardizem) 60 mg PO Q8H [facility] Last Admin: 01/13/19 17:50 Dose: 60 mg Diphenhydramine HCl (Benadryl) 25 mg PO TID PRN PRN Reason: Rash Last Admin: 01/13/19 10:10 Dose: 25 mg Enoxaparin Sodium (Lovenox) 30 mg SC DAILY [facility]; Protocol Last Admin: 01/13/19 09:14 Dose: 30 mg Famotidine (Pepcid) 40 mg PO HS [facility] Last Admin: 01/12/19 21:18 Dose: 40 mg Fluoxetine HCl (Prozac) 10 mg PO DAILY [facility] Last Admin: 01/13/19 09:15 Dose: 10 mg Fluticasone Propionate (Flonase) 1 actuation NS HS [facility] Last Admin: 01/12/19 21:22 Dose: Not Given Hydralazine HCl (Apresoline) 25 mg PO Q6 [facility] Last Admin: 01/13/19 17:48 Dose: 25 mg Insulin Human Regular (Humulin R Med) 0 units SC ACHS [facility]; Protocol Last Admin: 01/13/19 17:49 Dose: 3 units Loratadine (Claritin) 10 mg PO DAILY [facility] Metformin HCl (Glucophage) 500 mg PO BID [facility] Last Admin: 01/13/19 17:48 Dose: 500 mg Methylprednisolone (Solu-Medrol) 40 mg IVP TID [facility] Last Admin: 01/13/19 17:51 Dose: 40 mg Mometasone Furoate (Elocon Cream) 0 gm TOP BID [facility] Last Admin: 01/13/19 17:50 Dose: Not Given Montelukast Sodium (Singulair) 10 mg PO HS [facility] Nystatin (Nystop Topical Powder) 0 gm TOP BID [facility] Last Admin: 01/13/19 17:50 Dose: Not Given - Labs Labs: 01/12/19 06:00 01/12/19 06:00 PT 13.9 SECONDS (9.4-12.5) H 01/09/19 00:05 INR 1.25 01/09/19 00:05 APTT 31.9 Seconds (26.9-38.3) 01/09/19 00:05 - Constitutional Appears: Chronically Ill - Head Exam Head Exam: NORMAL INSPECTION - Respiratory Exam Respiratory Exam: Decreased Breath Sounds - Cardiovascular Exam Cardiovascular Exam: +S1, +S2 - GI/Abdominal Exam GI & Abdominal Exam: Soft. absent: Tenderness Assessment and Plan - Assessment and Plan (Free Text) Plan: Assessment No evidence of pneumonia on CT chest rash, etiology not clear COPD DM HTN Plan Will continue to monitor off antibiotics since she is at risk for nosocomial infections
[2019-01-14] MEDS: Fluticasone Nasal 50 mcg/Spray NS SCH (21:59)
[2019-01-15] MEDS ORDERED: DiphenhydrAMINE 50 mg/ml Inj IVP PRN (01:30)
--- NOTE | 2019-01-15 01:44 | PN ---
DATE: 01/14/2019 SUBJECTIVE: The patient is a 68-year-old female. The patient is seen and examined at the bedside, looking comfortable. No fever. No chills. No hematuria or hematochezia. No headache or dizziness. No chest pain. No palpitations. She still has rash, it is improving. PHYSICAL EXAMINATION: VITAL SIGNS: Temperature 97.5, pulse 80, and blood pressure 150/80. HEENT: Head; normocephalic and atraumatic. Eyes; PERRLA. Extraocular muscles are intact. Conjunctivae clear. Nose patent. Mucous membranes moist. NECK: Supple. No carotid bruits. No JVD or thyromegaly. CHEST: Bilaterally symmetrical. HEART: S1 and S2 positive. LUNGS: Clear to auscultation. ABDOMEN: Soft and nontender. No organomegaly. EXTREMITIES: No edema. No cyanosis. NEUROLOGIC: The patient is awake, alert, and moving all four extremities. No focal deficits. MEDICATIONS: Tylenol, Brovana, Cardizem, Benadryl, Flonase, hydralazine, and Claritin. LABORATORY DATA: White blood cells 7.7, hemoglobin 12.3, and hematocrit 38.1. Sodium 137, potassium 4.1, BUN 24, and creatinine 0.5. Blood culture preliminary, no growth after 24 hours. Group A Strep throat culture , no beta Strep group A isolation. ASSESSMENT AND PLAN: Ms. Mara Walker is a 68-year-old female with multiple medical problems, chronic obstructive lung disease, cerebrovascular accident, diabetes mellitus uncontrolled, hypertension, healthcare-associated pneumonia, off the antibiotics due to allergic reaction. Continue to follow with Infectious Disease. The patient is refusing use of continuous positive airway pressure machine. Encouraged to continue machine bilevel positive airway pressure. Has rash all over the body. Getting Solu-Medrol, Singulair, antihistamine, and Elocon cream. Discussion done with the patient and nursing staff. Reviewed Jamaal Kramer's communication report. Appreciated Dr. Nuñez, Dr. Herrera, and Dr. Dillon Muhammad's input. We will follow up. Lelo Allan MD MTDD
[2019-01-15 06:25] VITALS: BP 180/69; PULSE 83
[2019-01-15 06:45] LABS: HEMOGLOBIN 12.7 g/dL (12.0-16.0); MEAN CELL VOLUME 87.1 fl (80.0-105.0); MEAN CORPUSCULAR HEMOGLOBIN 28.2 pg (25.0-35.0); MEAN CORPUSCULAR HGB CONC 32.4 g/dl (31.0-37.0); RBC 4.5 10^6/uL (3.5-6.1); RED CELL DISTRIBUTION WIDTH 13.5 % (11.5-14.5); WHITE BLOOD COUNT 17.3 10^3/uL (4.5-11.0)
[2019-01-15 07:23] LABS: BLOOD UREA NITROGEN 23 mg/dL (7-21); GFR NON-AFRICAN AMERICAN > 60
[2019-01-15] MEDS: Arformoterol 15 mcg/2 ml Inh Sol IH SCH (07:57)
[2019-01-15] MEDS: Budesonide 0.5 mg/2 ml Inhal Susp UD IH SCH (07:57)
--- NOTE | 2019-01-15 08:02 | PQF ---
PROVIDER RESPONSE TEXT: Pt did not have sepsis She did meet criteria for sirs REVIEWER QUERY TEXT: Conflicting Documentation Clarification A single mention or documentation of multiple diagnoses for the same clinical presentation appears in the record. Please clarify the diagnosis/diagnoses. Please also document if the condition is: -- Confirmed and current -- Confirmed, treated and resolved -- Ruled out -- Other, please specify The patient's Clinical Indicators include: Medical record shows that patient was admitted with possible sepsis due to pneumonia. CXR was negativ e for infiltrate or consolidations. CT chest with no infiltrate or consolidations. Your PN of 01/12 states "....there is no pneumonia..." although the following paragraph notes "admitte d initially thought to have sepsis with HCAP although CT scan negative". Please clarify and document if sepsis, sepsis with pneumonia were POA, undetermined. Query created by: Anel Broussard on 01/13/2019 2:02 PM Electronically signed by: Emmanuel Daley MD 01/15/2019 7:59 AM
--- NOTE | 2019-01-15 08:48 | PN ---
DATE: 01/15/2019 SUBJECTIVE: The patient was seen earlier this morning, she was in bed. She is in no distress, nontoxic. No fevers or chills. PHYSICAL EXAMINATION VITAL SIGNS: Temperature is 98. The day before, T-max was 100. The blood pressure is 172/80, respiratory rate of 18. HEENT: Unremarkable. NECK: Supple. CARDIOPULMONARY: Heart, normal S1, S2. LUNGS: Have decreased breath sounds. ABDOMEN: Soft. SKIN: Review of the rash appears to be improving. MEDICATIONS: Review of the orders reveals the patient is off of antibiotics, currently on Solu-Medrol. ASSESSMENT AND PLAN: A 68-year-old female with no evidence of pneumonia, on chest is a rash. The etiology of this is not clear. She has chronic obstructive pulmonary disease, diabetes and hypertension.. On admission the patient did have a fever of 101 and a heart rate of 104. She does meet criteria of SIRS (systemic inflammatory response syndrome), but she does not have any sepsis, all the cultures are negative. Etiology of the rash is not entirely clear. Emmanuel Daley MD
[2019-01-15 08:52] VITALS: TEMP 97.9; O2SAT 96
[2019-01-15] MEDS: Benzocaine/Menthol (Cepacol) Lozenge MT SCH (09:38)
[2019-01-15] MEDS: Insulin Reg-HIGH-Coverage SC SCH ×2 (09:39→12:02)
[2019-01-15] MEDS: Mometasone 0.1% Cream(15 gm) TOP SCH (09:39)
[2019-01-15] MEDS: MethylPREDNISolone 40 mg Vial IVP SCH (09:40)
[2019-01-15] MEDS: Enoxaparin 30 mg Syringe SC SCH (09:40)
[2019-01-15] MEDS: Nystatin 100,000 Units/gm Topical Pow(15 gm) TOP SCH (09:40)
[2019-01-15] MEDS ORDERED: Alum-Mag Hydrox-Simethicone Susp (30 mL) PO ONE (10:19)
[2019-01-15] MEDS ORDERED: POLYETHYLENE GLYCOL 3350 17 GM/Dose PACKET PO SCH (10:30)
--- NOTE | 2019-01-15 10:41 | CP.PCM.PCO ---
Physician Communication Note - Physician Communication Note Physician Communication Note: chest pain cardio consulted serial troponin's pending
--- NOTE | 2019-01-15 11:24 | PN ---
DATE: 01/15/2019 PULMONARY PROGRESS NOTE REFERRING PHYSICIAN: Lelo Allan MD SUBJECTIVE: The patient is seen lying in bed, no acute distress noted. The patient had complained of chest tightness and pain 05/29 yesterday. EKG and cardiac workups were performed which were negative. This morning the patient continues to report epigastric chest discomfort, also reports that she feels a bit constipated. She has not had a good bowel movement. Rash is improving. States she is feeling she does have some shortness of breath at times. No headache, rhinitis, nausea, vomiting, diarrhea, leg pain or leg swelling reported. PHYSICAL EXAMINATION: GENERAL: No acute distress. VITAL SIGNS: Blood pressure 180/69, pulse 83, temperature 97.9 and oxygen saturation 96%. HEENT: Moist mucous membranes. Mallampati score of 4. Crowded airways. NECK: Supple. No JVD. RESPIRATORY: Fair air flow bilaterally CARDIOVASCULAR: S1 and S2. ABDOMEN: Positive epigastric tenderness and soft. EXTREMITIES: No bilateral lower extremity edema. NEUROLOGIC: Awake, alert and verbal. Following commands. SKIN: Improving rash on the back. MEDICATIONS: Reviewed. Tylenol 650 every 4 hours p.r.n. for mild pain, DuoNeb 3 mL inhalation every 4 hours p.r.n., Brovana 15 mcg inhalation every 12 hours, aspirin 81 mg daily, Cepacol throat lozenges four times a day, Pulmicort 0.5 mg inhalation every 12 hours, Cardizem 60 mg every 8 hours, Benadryl 50 mg every 8 hours p.r.n., Lovenox 30 mg subcutaneously daily, Pepcid 40 mg at bedtime, Prozac 10 mg daily, Flonase nasal spray at bedtime, hydralazine 25 mg every 6 hours, Humulin R sliding scale a.c. and at bedtime, Claritin 10 mg daily, Glucophage 500 mg twice a day, Solu-Medrol 40 mg three times a day, Elocon cream topically twice a day to affected area, Singulair 10 mg at bedtime and nystatin topical to affected area twice a day. LABORATORY DATA: WBC 17.3, RBC 4.5, hemoglobin 12.7, hematocrit 39.2 and platelets 317. Sodium 136, potassium 4.1, chloride 96, carbon dioxide 33, anion gap 11, BUN 23, creatinine 0.6, GFR is greater than 60, POC glucose 280, random glucose 290, calcium 9.0, lactate dehydrogenase 398, total creatine kinase 21 and troponin less than 0.01. Blood cultures preliminary no growth after 48 hours. EKG sinus rhythm with occasional premature ventricular complexes, right bundle-branch block and left anterior fascicular block. IMPRESSION AND PLAN: Chronic obstructive lung disease, cerebrovascular accident, diabetes mellitus and hypertension. The patient is admitted with sepsis secondary to healthcare-associated pneumonia. Continue followup with Infectious Disease. Now currently on antibiotic therapy. The patient is refused to use continuous positive airway pressure machine for suspected sleep apnea syndrome, sleep apnea precaution and head of bed elevated at 45 degrees. Continue to encourage continuous positive airway pressure use. Continue treatment as per primary care physician. We will order Maalox 30 mL p.o. one time dose to be given and placed the patient on Maalox p.r.n. for heart burn/ upset stomach. We will discontinue Pepcid and start the patient on Protonix 40 mg daily. We will start the patient on MiraLax daily. The patient does have history of gastritis, complaining of epigastric chest discomfort. Cardiac workup negative. Cardiology consult pending. Fall precautions. Continue inhaled bronchodilators, leukotriene inhibitors and Flonase nasal spray. Continue gastric prophylaxis and deep venous thrombosis prophylaxis. Physical therapy and out of bed to chair. Recommend the patient have sleep study and full pulmonary function test as outpatient. This patient was seen and examined with Dr. Nuñez. Discussed assessment and plan as described above. This patient was seen and examined with Blayne Romero, nurse practitioner. Discussed assessment and plan as described above. Thank you for this consult. We will follow with you. Blayne Romero APN Evangelist Nuñez MD [facility]
[2019-01-15] MEDS ORDERED: Petrolatum Oint Foilpak (5 gm) TOP SCH (12:11)
[2019-01-15] MEDS ORDERED: Pantoprazole 40 mg EC Tab PO SCH (22:00)
--- NOTE | 2019-01-15 23:05 | CON ---
DATE: 01/15/2019 LOCATION: The patient is in room 368, bed 2. REASON FOR CONSULTATION: Chest pain. HISTORY OF PRESENT ILLNESS: A 68-year-old female who is a known case of diabetes mellitus, hypertension, COPD, colitis and TIA in the past, was admitted through emergency room with left-sided weakness, generalized fatigue, sore throat, cough and now patient is feeling better and she is being transferred to rehab. She is complaining of chest pain off and on and so consult has been requested for evaluation of this chest pain. Patient's chest pain is localized in the mid lower chest with marked tenderness on the area and she states if she takes a deep breath the pain gets worse. She has no relation on exertion of this pain. PAST MEDICAL HISTORY: Positive for hypertension, diabetes mellitus, COPD, colitis, TIA. SOCIAL HISTORY: Former ethanol abuse. PAST SURGICAL HISTORY: Appendectomy, colectomy. PREVIOUS CARDIAC WORKUP: Patient had an echo on 11/25/2018, which showed LV size normal, LV showed moderate LVH. LV ejection fraction was 50% to 55%. Trace MR, trace AR, trace TR, trace SC. RVSP 16 mmHg. On 11/26/2018, patient has a stress test, which was normal with ejection fraction of 71%. ALLERGIES: PATIENT STATES SHE HAS ALLERGY TO CODEINE AND FISH. HOME MEDICATION: Were reviewed; Metformin, hydralazine, diltiazem, Singulair, Flonase, Prozac, Pulmicort Respules, aspirin, DuoNeb and Brovana therapy. PHYSICAL EXAMINATION VITAL SIGNS: Blood pressure 172/82, yesterday, blood pressure was 150/87; respiration 18, pulse 79. Patient afebrile. HEENT: Head is normocephalic. Eyes, pupils normal. Conjunctiva normal. Nose and throat normal. NECK: JVP low, carotid equal. THORAX: AP diameter normal. Marked tenderness on area of the chest pain. LUNGS: Clear. CARDIOVASCULAR: S1, S2. No rub, no click, no gallop. ABDOMEN: Protuberant. No organomegaly. EXTREMITIES: No clubbing. No cyanosis. LABORATORY DATA: WBC 17.3, hemoglobin 12.7, hematocrit 39.2, platelet 31.7. Sodium 136, potassium 4.1, BUN 23, creatinine 0.6, random sugar 258, calcium 9.0, troponin x2 negative. Chest x-ray, no active disease. EKG shows sinus rhythm with premature atrial complex right bundle-branch block, nonspecific ST-T wave changes. 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 PAC is present from the EKG. As mentioned, patient had stress test on 11/26/2018, and it was negative with normal ejection fraction of 71%. Echo was done on 11/25/2018. Normal LV size. Moderate LV ejection fraction 50% to 55%. Trace MR, AR, TR and SC. RVSP of 16 mmHg. DIAGNOSES: Patient's chest pain is musculoskeletal, hypertension, diabetes mellitus, chronic obstructive pulmonary disease, obesity. PLAN: From cardiac point of view, patient can go to physical therapy with five days of Naprosyn 275 mg t.i.d. after meals and Protonix 40 mg daily and other medications, which the patient is already on. Advised patient to lose weight. We will follow with you. Evangelist Herrera MD
--- NOTE | 2019-01-16 02:33 | CP.PCM.PN ---
Subjective - Date & Time of Evaluation Date of Evaluation: 01/16/19 Time of Evaluation: 02:33 - Subjective Subjective: S:Patient was seen because I was asked to co-sign an order of Atarax 10 mg PO stat. It was ordered for itching. she complains of generalized itching. Has no other complaints. O: VSS. Not in acute distress. SKIN: Nor definite rash seen. LUNGS: Normal breathing pattern. A:Itching. P:Atarax 10 mg PO x 1. Objective - Vital Signs/Intake and Output Vital Signs (last 24 hours): Temp Pulse Resp BP Pulse Ox 97.9 F 83 20 180/69 H 96 01/15/19 06:00 01/15/19 06:23 01/15/19 06:00 01/15/19 06:23 01/15/19 06:00 - Labs Labs: 01/15/19 06:25 01/15/19 06:25 PT 13.9 SECONDS (9.4-12.5) H 01/09/19 00:05 INR 1.25 01/09/19 00:05 APTT 31.9 Seconds (26.9-38.3) 01/09/19 00:05
[2019-01-16] MEDS ORDERED: Alum-Mag Hydrox-Simethicone Susp (30 mL) PO PRN (10:22)
== END 2019-01-15 14:59 | DRG 191 ==
LOC: ED 22:47 → ERH 01-09 02:28 → 2RSO 01-09 10:48 → 3RNO 01-12 21:51
PROVIDERS: ADMIT Internal Medicine; ATTEND Internal Medicine
PROC: 5A09357 Assistance with Respiratory Ventilation, Less than 24 Consecutive Hours, Continuous Positive Airway Pressure (ICD-10-PCS; principal; 2019-01-09)
DX: J44.9 Chronic obstructive pulmonary disease, unspecified (principal); I69.354 Hemiplegia and hemiparesis following cerebral infarction affecting left non-dominant side; R65.10 Systemic inflammatory response syndrome (SIRS) of non-infectious origin without acute organ dysfunction; Z68.43 Body mass index [BMI] 50.0-59.9, adult; J06.9 Acute upper respiratory infection, unspecified; I11.0 Hypertensive heart disease with heart failure; I50.9 Heart failure, unspecified; E87.6 Hypokalemia; E11.65 Type 2 diabetes mellitus with hyperglycemia; E66.01 Morbid (severe) obesity due to excess calories; G47.33 Obstructive sleep apnea (adult) (pediatric); L27.0 Generalized skin eruption due to drugs and medicaments taken internally; T36.95XA Adverse effect of unspecified systemic antibiotic, initial encounter; M17.10 Unilateral primary osteoarthritis, unspecified knee; R50.9 Fever, unspecified; Z91.19 Patient's noncompliance with other medical treatment and regimen; Z79.4 Long term (current) use of insulin; Z88.5 Allergy status to narcotic agent; Z86.718 Personal history of other venous thrombosis and embolism